=== PATIENT | male | born 1985 | race Caucasian/White ===

== ENCOUNTER → 2019-05-30 10:31 | Outpatient (CLI) | payer OTHER, SELFPAY ==
[2019-05-30 12:38] LABS: Cholesterol 239 mg/dL (200); High Density Lipoprotein 47 mg/dL; Triglycerides 94 mg/dL; Very Low Density Lipoprotein 19 mg/dL (5-40)
[2019-06-02 08:08] LABS: Testosterone, Free 12.46 ng/dL (5.00-21.00)
[2019-06-02 12:48] LABS: Testosterone, % Free 3.59 % (1.50-4.20); Testosterone, Total 347 ng/dL (264-916)
== END ==
LOC: LAB 10:36
PROVIDERS: Family Provider Family Medicine; PCP Family Medicine
DX: N52.9 Male erectile dysfunction, unspecified (principal)
CPT/HCPCS: 36415; 80061; 84402; 84403

== ENCOUNTER 2025-02-16 23:10 | Emergency (ER) | payer BC, SELFPAY ==
[2025-02-16 23:10] VITALS: BP 138/87; PULSE 82; RESP 16; TEMP 36.6; O2SAT 98; BMI 32.6
--- NOTE | 2025-02-17 00:28 | EX.ED.DYSGE1 ---
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 He reports associated occasional abdominal discomfort and subjective loss of muscle mass despite using a mass-alfredo supplement. No current gastrointestinal bleeding, persistent diarrhea, nausea, vomiting, or respiratory complaints beyond exertional dyspnea at work. He is concerned about the etiology of his night sweats and weight loss and seeks evaluation tonight rather than waiting until morning. - Reports night sweats for approximately one month. - Has noticed weight loss despite normal eating habits; previously weighed 246 lbs at last PCP visit, now weighs 234.4 lbs; attributes some weight maintenance to taking a mass alfredo with creatine. - Experiences abdominal discomfort at times, not present now. - Denies nausea, emesis, diarrhea, hematochezia, or melena. - Reports dyspnea at work, attributing it to the physical demands of his job. 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 - Urination is normal, but notes cloudy, yellow urine that is sometimes foamy. - Denies any current medical problems or medications. - Recently saw PCP for throat irritation and was prescribed medication for itching and allergies. - Has seen two ENTs for concerns about a white appearance on his tongue in the past; not present now. [facility] Medical History Leukemia Medical History no medical history Allergy/AdvReac Type Severity Reaction Status Date / Time ibuprofen Allergy Severe SEIZURE Verified 02/16/25 23:12 Family History no significant family his Surgical History no surgical history Social History Smoking Status: Never smoker ROS ROS ED ROS Narrative Constitutional: (+) night sweats, (+) weight loss Respiratory: (+) exertional dyspnea Gastrointestinal: (+) abdominal discomfort, (-) diarrhea, (-) vomiting, (-) hematochezia, (-) melena Genitourinary: (+) cloudy urine, (+) foamy urine Musculoskeletal: (+) muscle weakness Constitutional Constitutional ED: Denies chills or fever(s) Respiratory/Chest Respiratory/Chest: Reports cough; Denies sputum EXAM Physical Exam Narrative Exam Narrative: - General: Alert & oriented, no acute distress. - HEENT: Pupils equal, round. Pharynx clear, no pharyngeal erythema or exudates. - Neck: Supple. - Respiratory: Clear to auscultation bilaterally. No wheezing, rhonchi, or rales. - Cardiovascular: Regular rate and rhythm, no murmurs, rubs, or gallops. - Abdomen: Soft, non-tender, non-distended. - Neuro: No focal deficits, CN II-XII grossly intact. - Extremities: No clubbing, cyanosis, or edema. Const Vital Signs: 02/16/25 23:10 02/16/25 23:42 Temperature 97.9 F Temperature Source Oral Pulse Rate 82 Respiratory Rate 16 Respiratory Effort Normal Non-Labored Respiratory Pattern Normal Blood Pressure 138/87 H Blood Pressure Mean 104 Pulse Ox 98 Oxygen Delivery Method Room Air MDM MDM MDM Narrative Medical decision making narrative: Screening test on this patient are fairly unremarkable; the only abnormality is his globulin level is low, which is of undetermined significance. He does have a slight amount of proteinuria, however if that was causing this I would expect his albumin levels to be low and they are not. Therefore I think this is less likely to be renal disease. His blood counts are normal including his white blood count, he has a predilection for monocytes and eosinophils of undetermined significance at this time but there are no immature cells seen on the CBC at this time. Chest x-ray 2 views of my interpretation shows no pneumonia. He has not traveled out of the area or the country recently or been exposed to anyone with tuberculosis that he knows of. His cough is nonproductive and there is no sputum to collect to test for this, and his chest x-ray shows no suspicion or evidence of tuberculosis. Although I do not have an obvious explanation for any of his symptoms, he states that his weight loss was about 8 pounds in the last month, and he states that he noticed 4 pounds in 24 hours which I reassured him is likely to be water if it is real in the first place. It is unknown if SPEP is indicated for this issue, but I think reasonable to have him follow-up with hematology/oncology for further evaluation of these labs and symptoms. Lab Data Attestation: I reviewed the patient's lab results. Labs: Laboratory Results - last 24 hr 02/17/25 02/17/25 00:15 00:30 WBC 7.6 RBC 4.48 L Hgb 13.6 Hct 39.6 L MCV 88.4 MCH 30.4 MCHC 34.3 RDW Std Deviation 38.3 RDW Coeff of Jose 11.9 Plt Count 227 MPV 11.5 Immature Gran % (Auto) 0.300 Neut % (Auto) 48.7 Lymph % (Auto) 34.2 Gilliam % (Auto) 10.6 H Eos % (Auto) 5.4 H Baso % (Auto) 0.8 Absolute Neuts (auto) 3.7 Absolute Lymphs (auto) 2.58 Nucleated RBC % 0 Sodium 138 Potassium 3.6 Chloride 103 Carbon Dioxide 24.6 Anion Gap 11 BUN 15 Creatinine 1.05 Estim Creat Clear Calc 118.34 Est GFR (MDRD) Non-Af 93 BUN/Creatinine Ratio 14.5 Glucose 106 H Calcium 9.3 Total Bilirubin 0.32 AST 17 ALT 11 Alkaline Phosphatase 55 Total Protein 6.3 Albumin 4.5 Globulin 1.8 L Albumin/Globulin Ratio 2.5 H Urine Color Yellow Urine Clarity Clear Urine pH 6.0 Ur Specific [place] 1.020 Urine Protein 15 H Urine Glucose (UA) Normal Urine Ketones Negative Urine Occult Blood Negative Urine Nitrite Negative Urine Bilirubin Negative Urine Urobilinogen Normal Ur Leukocyte Esterase Negative Urine RBC 0 SEEN Urine WBC 0 SEEN Ur Squamous Epith Cells 0 SEEN Urine Bacteria 0 SEEN Urine Mucus 0 SEEN Radiography Diagnostic Testing: Clinical Impression(s) from Imaging Studies Chest X-Ray 02/17/25 00:40 IMPRESSION: Mild bilateral peribronchial interstitial thickening suggestive of bronchitis. Reading Location: [place] [id number] Discharge Plan Triage Chief Complaint: General Illness ED Provider: Ed Mary Dx/Rx/DC Orders Clinical Impression: Hypoglobulinemia, Night sweats, Unintentional weight loss, Nonproductive cough Instructions: Protein Electrophoresis (Blood) Other Ambulatory Orders: Fast Pass: Oncology Referral [facility] (Routine) Facility: [facility] - Location: [facility] Ordered By: Dr. Ed Mary Primary Care Provider: Rebel Jenkins Referrals: Fidel Ruiz MD [Non-Staff, Family Practice] - As soon as possible Venecia Lucas MD [Med Staff - Active Staff, Oncology] - As soon as possible Print Language: Maldivian Disposition Disposition: Home, Self Care
[2025-02-17 00:37] LABS: Mucous, Urine 0 SEEN /hpf (<or=2+); Red Blood Cells-Urine 0 SEEN /hpf (0-5); Squamous Epithelial Cells - UA 0 SEEN /hpf (0-5)
[2025-02-17 00:38] LABS: Color, Urine Yellow (Yellow); Glucose, Dipstick Normal (Normal); Ketone-Dipstick Negative (Negative); Leukocyte Esterase-Dipstick Negative /ul (Negative); Nitrite-Dipstick Negative (Negative); Occult Blood-Urine Negative /ul (Negative); Protein-Dipstick 15 mg/dl (Negative); Specific Gravity, Urine 1.020 (1.002-1.030); Urine Bilirubin Dipstick Negative (Negative)
[2025-02-17 00:39] LABS: Hematocrit 39.6 % (40-54); Hemoglobin 13.6 g/dL (13.0-16.5); Immature Granulocytes Count 0.020 X10^3/uL (0.0-0.0); Mean Corp Hgb Conc 34.3 g/dL (32-36); Mean Corpuscular Volume 88.4 fL (80-94); Mean Platelet Vol. 11.5 fl (6.2-12.0); NRBC Flagged by Analyzer 0 % (0-5); Platelet Count 227 K/mm3 (150-450); RBC Distribution Width CV 11.9 % (11.6-14.6); RBC Distribution Width SD 38.3 fl (35.1-43.9); Red Blood Count 4.48 M/mm3 (4.6-6.2); White Blood Count 7.6 K/mm3 (4.4-11.0)
--- NOTE | 2025-02-17 00:40 | RAD_ITS ---
PROCEDURE: CHEST PA AND LATERAL 02/17/2025 REASON FOR EXAM: COUGH, WEIGHT LOSS TECHNIQUE: Procedure Code: RADCXR Modality: DX Procedure: CHEST PA AND LATERAL COMPARISON: None. FINDINGS: Mild bilateral peribronchial interstitial thickening suggestive of bronchitis. There is no demonstrated pleural abnormality. Normal heart and pericardium. Normal mediastinum and vy. Normal visualized pulmonary arteries. Normal visualized aortic arch and descending thoracic aorta. Normal visualized thoracic spine. Normal visualized ribs, clavicles, and shoulders. There is no demonstrated abnormality of the visualized soft tissue structures of the upper abdomen. RAD/Chest PA and Lateral IMPRESSION: Mild bilateral peribronchial interstitial thickening suggestive of bronchitis. [facility]
--- OUTSIDE RECORDS SUMMARY | 2025-02-17 01:06 | XMS RPT_ITS | CCD ---
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 Name Role Phone Derick Eagle Unavailable Unavailable Unavailable Emmy Gregorio Attending Unavail able Fidel Ruiz Referring Unavailable Fidel Ruiz Primary Care Unavailable Generic Provider , No Assigned Pcp Primary Car e Provider Unavailable Rebel Damian PA-C Primary Care Provider Generic Provider , No Assigned Pcp Primary Car e Provider Unavailable REBEL DAMIAN Attending Unavailable REBEL DAMIAN Primary Care Unavailable DENNIS CONTE Attending Unavailable GENERIC PROVIDER, NO ASSIGNED PCP Primary Care Unavailable GENERIC PROVIDER, NO ASSIGNED PCP Primary Care Unavailable DENNIS CONTE Attending Unavailable Allergies Allergy Classification Reported Allergen(s) Allergy Type Date of Onset Reaction(s) Facility (9 sources) Ibuprofen; Translations: [ibuprofen] Drug Allergy 5 [facility], [facility] Medications Current Medications Medication Drug Class(es) Dates Sig (Normalized) Sig (Original) cetirizine hydrochloride 10 mg oral tablet (2 sources) Histamine-1 Receptor Antagonist Start: 01-06-2025 take 1 tablet by mouth once daily cetirizine (ZyrTEC) 10 mg tablet Indications: Post-nasal drainage Take 1 tablet (10 mg) by mouth once daily. 30 tablet 01/06/2025 Active fluconazole 150 mg oral tablet (1 source) Azole Antifungal Start: 01-08-2025 fluconazole (Diflucan) 150 mg tablet Indications: Thrush Take 1 tablet now, and take 1 tablet in 7 days. 2 tablet 01/08/2025 Active hydrOXYzine hydrochloride 25 mg oral tablet (3 sources) Antihistamine Start: 12-25-2024 take 1 tablet by mouth four times daily as needed hydrOXYzine HCL (Atarax) 25 mg tablet Indications: Situational anxiety Take 1 tablet (25 mg) by mouth 4 times a day as needed for itching. 20 tablet 12/25/2024 Active Completed/Discontinued Medications Medication Drug Class(es) Dates Sig (Normalized) Sig (Original) amoxicillin 875 mg / clavulanate 125 mg oral tablet (3 sources) Penicillin-class Antibacterial Start: 05-14-2021 take 1 tablet by mouth every twelve hours Amoxicillin-Pot Clavulanate 875-125 MG Oral Tablet TAKE 1 TABLET EVERY 12 HOURS UNTIL GONE. Quantity: 14 Refills: 0 Ordered: 14-May-2021 Shagufta WOO-CDerick Start : 14-May-2021 Active azithromycin 250 mg oral tablet (3 sources) Macrolide Antimicrobial Start: 12-18-2024 End: 12-25-2024 azithromycin (Zithromax) 250 mg tablet 12/18/2024 12/25/2024 Discontinued (Therapy completed) Start: 04-29-2021 End: 05-14-2021 Azithromycin 250 MG Oral Tab let TAKE DIRECTED PER PACKAGE INSTRUCTIONS. Quantity: 6 Refills: 0 Ordered: 29-Apr-2021 Shagufta WOO-CDerick Start : 29-Apr-2021 End : 14-May-2021 Complete codeine phosphate 2 mg/ml / phenylephrine hydrochloride 1 mg/ml / promethazine hydrochloride 1.25 mg/ml oral solution (2 sources) Opioid Agonist, Phenothiazine, alpha-1 Adrenergic Agonist Start: 04-29-2021 End: 05-14-2021 take 5-10 mL by mouth every four to six hours as needed for cough Uvmojrowspen-Uzwxebilt-Zqsiubh 6.25-5-10 MG/5ML Oral Syrup 5-10 mL every 4-6 hrs prn cough Quantity: 200 Refills: 0 Ordered: 29-Apr-2021 Shagufta WOO-CDerick Start : 29-Apr-2021 End : 14-May-2021 Complete J20.9 methylPREDNISolone 4 MG Oral Tablet Therapy Pack (2 sources) Start: 04-29-2021 End: 05-14-2021 methylPREDNISolone 4 MG Oral Tablet Therapy Pack as directed on package Quantity: 1 Refills: 0 Ordered: 29-Apr-2021 Derick Eagle PA-C Start : 29-Apr-2021 End : 14-May-2021 Complete Start: 04-29-2021 methylPREDNISo lone 4 MG Oral Tablet Therapy Pack as directed on package Quantity: 1 Refills: 0 Ordered: 29-Apr-2021 Derick Eagle PA-C Start : 29-Apr-2021 Active nystatin 214505 unt/ml oral suspension (2 sources) Polyene Antifungal Start: 12-25-2024 End: 01-06-2025 take 4 mL by mouth four times daily nystatin (Mycostatin) 100,000 unit/mL suspension Indications: Thrush, oral Swish and swallow 4 mL (400,000 Units) 4 times a day for 7 days. 112 mL 12/25/2024 01/06/2025 predniSONE 10 mg oral tablet (3 sources) Start: 05-14-2021 predniSONE 10 MG Oral Tablet TAKE 3 TABLETS DAILY FOR 2 DAYS, 2 TABLETS DAILY FOR 2 DAYS AND 1 TABLET DAILY FOR 2 DAYS, THEN STOP. Quantity: 12 Refills: 0 Ordered: 14-May-2021 Derick Eagle PA-C Start : 14-May-2021 Active sulfamethoxazole 800 mg / trimethoprim 160 mg oral tablet (3 sources) Dihydrofolate Reductase Inhibitor Antibacterial, Sulfonamide Antimicrobial Start: 05-14-2021 take 1 tablet by mouth every twelve hours Sulfamethoxazole -Trimethoprim 800-160 MG Oral Tablet TAKE 1 TABLET Every twelve hours Quantity: 14 Refills: 0 Ordered: 14-May-2021 Derick Eagle PA-C Start : 14-May-2021 Active tadalafil 20 mg oral tablet (1 source) Phosphodiesterase 5 Inhibitor Start: 04-08-2020 End: 04-29-2021 Tadalafil 20 MG Oral Tablet Quantity: 0 Refills: 0 Ordered: 08-Apr-2020 DO Start : 08-Apr-2020 End : 29-Apr-2021 Complete ubidecarenone 100 mg oral capsule (1 source) End: 04-29-2021 CoQ-10 100 MG Oral Capsule Quantity: 0 Refills: 0 Ordered: 29-Apr-2021 DO End : 29-Apr-2021 Complete Problems Active Problems Problem Classification Problem Date Documented Da te Episodic/Chronic Acute bronchitis (4 sources) Acute bronchitis; Translations: [Acute bronchitis] Episodic Anxiety disorders (3 sources) Anxiety; Translations: [Other specified anxiety disorders] Onset: 5 12-25-2024 Chronic Diseases of mouth; excluding dental (3 sources) Coating of mucous membrane of tongue; Translations: [Hypertrophy of tongue papillae] Onset: 5 01-06-2025 Episodic 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; 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] Chronic Leukemias (4 sources) History of leukemia; Translations: [Personal history of leukemia, unspecified] Episodic Mycoses (6 sources) Candidiasis of mouth; Translations: [Candidal stomatitis] Onset: 5 12-25-2024 Episodic Other lower respiratory disease (1 source) Hemoptysis; Translations: [Hemoptysis, unspecified] Episodic Other upper respiratory infections (4 sources) Upper respiratory infection; Translations: [Acute upper respiratory infections of unspecified site] Onset: 5 01-06-2025 Episodic Phlebitis; thrombophlebitis and thromboembolism (3 sources) Thrombophlebitis of upper extremities; Translations: [Phlebitis and thrombophlebitis of upper extremities, unspecified] Episodic Residual codes; unclassified (1 source) Unprotected sexual intercourse; Translations: [High risk heterosexual behavior] 01-08-2025 Episodic Residual codes; unclassified (2 sources) High risk heterosexual behavior; Translations: [High risk heterosexual behavior] Onset: Episodic Viral infection (3 sources) COVID-19; Translations: [Pneumonia due to COVID-19 virus] Episodic Past or Other Problems Problem Classification Problem Date Documented Da te Episodic/Chronic Other lower respiratory disease (3 sources) H/O: respiratory disease; Translations: [Personal history of other infectious and parasitic diseases] Resolved: 05-14-2021 Episodic Unclassified (1 source) Onset: 01-08-2025 01-08-2025 Results Test Name Value Interpretation Reference Range Facility CBC (INCLUDES DIFF/PLT)on Basophils (Bld) [#/Vol] 0.061 10*3/uL Normal 0-200 [facility] Comment on above: Performed By: #### 9 2503, 4381, 22618 #### [facility] [address], [address] [place] [address] Canopy Inspector: Akin Chinchilla MD Basophils/100 WBC (Bld) 1.1 % Normal [facility] Comment on above: Performed By: #### 9 882, 26, 04611 #### [facility] of [address], [address] [place] [address] Canopy Inspector: Akin Chinchilla MD Eosinophils (Bld) [#/Vol] 0.198 10*3/uL Normal 15-500 [facility] Comment on above: Performed By: #### 9 2664, 53, 78554 #### [facility] of [address], [address] [place] [address] Canopy Inspector: Akin Chinchilla MD Eosinophils/100 WBC (Bld) 3.6 % Normal [facility] Comment on above: Performed By: #### 9 266, 67, 55730 #### [facility] of [place] [address] Canopy Inspector: Akin Chinchilla MD Erythrocyte distribution width (RBC) [Ratio] 12.0 % Normal 11.0-15.0 [facility] Comment on above: Performed By: #### 9 488, 73, 44456 #### [facility] of [place] [address] Canopy Inspector: Akin Chinchilla MD Hematocrit (Bld) [Volume fraction] 45.4 % Normal 38.5-50.0 [facility] Comment on above: Performed By: #### 9 266, 84, 16046 #### [facility] of [place] [address] Canopy Inspector: Akin Chinchilla MD Hemoglobin (Bld) [Mass/Vol] 15.2 g/dL Normal 13.2-17.1 [facility] Comment on above: Performed By: #### 9 266, 72, 82455 #### [facility] of [address], [address] [place] [address] Canopy Inspector: Akin Chinchilla MD Lymphocytes (Bld) [#/Vol] 1.348 10*3/uL Normal 850-3900 [facility] Comment on above: Performed By: #### 9 290, 20, 12934 #### [facility] [place] [address] Canopy Inspector: Akin Chinchilla MD Lymphocytes/100 WBC (Bld) 24.5 % Normal [facility] Comment on above: Performed By: #### 9 480, 35, 59109 #### [facility] of [place] [address] Canopy Inspector: Akin Chinchilla MD MCH (RBC) [Entitic mass] 30.9 pg Normal 27.0-33.0 [facility] Comment on above: Performed By: #### 9 685, 42, 49981 #### [facility] [place] [address] Canopy Inspector: Akin Chinchilla MD MCHC (RBC) [Mass/Vol] 33.5 g/dL Normal 32.0-36.0 [facility] Comment on above: Result Comment: For adults, a slight decrease in the calculated MCHC value (in the range of 30 to 32 g/dL) is most likely not clinically significant; however, it should be interpreted with caution in correlation with other red cell parameters and the patient's clinical condition. Performed By: #### 9 252, 13, 25998 #### [facility] [place] [address] Canopy Inspector: Akin Chinchilla MD MCV (RBC) [Entitic vol] 92.3 fL Normal 80.0-100.0 [facility] Comment on above: Performed By: #### 9 682, 92, 35660 #### [facility] [place] [address] Canopy Inspector: Akin Chinchilla MD Monocytes (Bld) [#/Vol] 0.303 10*3/uL Normal 200-950 [facility] Comment on above: Performed By: #### 9 323, 82, 71771 #### [facility] of [address], [address] [place] [address] Canopy Inspector: Akin Chinchilla MD Monocytes/100 WBC (Bld) 5.5 % Normal [facility] Comment on above: Performed By: #### 9 266, 63, 34221 #### [facility] of [address], [address] [place] [address] Canopy Inspector: Akin Chinchilla MD Neutrophils (Bld) [#/Vol] 3.592 10*3/uL Normal 9360-8955 [facility] Comment on above: Performed By: #### 9 266, 6398, 63450 #### [facility] of [place] [address] Canopy Inspector: Akin Chinchilla MD Neutrophils/100 WBC (Bld) 65.3 % Normal [facility] Comment on above: Performed By: #### 9 266, 6398, 09884 #### [facility] of [address], [address] [place] [address] Canopy Inspector: Akin Chinchilla MD Platelet mean volume (Bld) [Entitic vol] 11.8 fL Normal 7.5-12.5 [facility] Comment on above: Performed By: #### 9 266, 35, 03189 #### [facility] of [place] [address] Canopy Inspector: Akin Chinchilla MD Platelets (Bld) [#/Vol] 250 10*3/uL Normal 140-400 [facility] Comment on above: Performed By: #### 9 266, 6398, 48654 #### [facility] of [place] [address] Canopy Inspector: Akin Chinchilla MD RBC (Bld) [#/Vol] 4.92 10*6/uL Normal 4.20-5.80 [facility] Comment on above: Performed By: #### 9 266, 77, 65309 #### [facility] of [address], [address] [place] [address] Canopy Inspector: Akin Chinchilla MD WBC (Bld) [#/Vol] 5.5 10*3/uL Normal 3.8-10.8 [facility] Comment on above: Performed By: #### 9 2665, 6399, 28513 #### [facility] of [facility] [address], [address] [place] [address] Canopy Inspector: Akin Chinchilla MD CBC W Auto Differential pane l (Bld)on 01-09-2025 Basophils (Bld) [#/Vol] 61 10*3/uL [facility] Basophils/100 WBC (Bld) 1.1 % [facility] Eosinophils (Bld) [#/Vol] 198 10*3/uL [facility] Eosinophils/100 WBC (Bld) 3.6 % [facility] Erythrocyte distribution width (RBC) [Ratio] 12.0 % 11.0 - 15.0 % [facility] Hematocrit (Bld) [Volume fraction] 45.4 % 38.5 - 50.0 % [facility] Hemoglobin (Bld) [Mass/Vol] 15.2 g/dL 13.2 - 17.1 g/dL [facility] Lymphocytes (Bld) [#/Vol] 1348 10*3/uL [facility] Lymphocytes/100 WBC (Bld) 24.5 % [facility] MCH (RBC) [Entitic mass] 30.9 pg 27.0 - 33.0 pg [facility] MCHC (RBC) [Mass/Vol] 33.5 g/dL 32.0 - 36.0 g/dL [facility] Comment on above: For adults, a slight decrease in the calculated MCHC value (in the range of 30 to 32 g/dL) is most likely not clinically significant; however, it should be interpreted with caution in correlation with other red cell parameters and the patient's clinical condition. MCV (RBC) [Entitic vol] 92.3 fL 80.0 - 100.0 fL [facility] Monocytes (Bld) [#/Vol] 303 10*3/uL [facility] Monocytes/100 WBC (Bld) 5.5 % [facility] Neutrophils (Bld) [#/Vol] 3592 10*3/uL [facility] Neutrophils/100 WBC (Bld) 65.3 % [facility] Platelet mean volume (Bld) [Entitic vol] 11.8 fL 7.5 - 12.5 fL [facility] Platelets (Bld) [#/Vol] 250 10*3/uL [facility] RBC (Bld) [#/Vol] 4.92 10*6/uL [facility] WBC (Bld) [#/Vol] 5.5 10*3/uL [facility] COMPREHENSIVE METABOLIC PANE L W/ANION GAPon 01-09-2025 Albumin [Mass/Vol] 4.7 g/dL Normal 3.6-5.1 [facility] Comment on above: Performed By: #### 9 2255, 3184, 96292 #### [facility] [place] [address] Canopy Inspector: Akin Chinchilla MD ALP [Catalytic activity/Vol] 56 U/L Normal 36-130 [facility] Comment on above: Performed By: #### 9 2665, 6323, 40817 #### [facility] [place] [address] Canopy Inspector: Akin Chinchilla MD ALT [Catalytic activity/Vol] 12 U/L Normal 9-46 [facility] Comment on above: Performed By: #### 9 2665, 5809, 99916 #### [facility] [place] [address] Canopy Inspector: Akin Chinchilla MD AST [Catalytic activity/Vol] 14 U/L Normal 10-40 [facility] Comment on above: Performed By: #### 9 2665, 3334, 40710 #### [facility] [place] [address] Canopy Inspector: Akin Chinchilla MD Bilirubin [Mass/Vol] 0.5 mg/dL Normal 0.2-1.2 [facility] Comment on above: Performed By: #### 9 2665, 50, 20804 #### [facility] of [place] [address] Canopy Inspector: Akin Chinchilla MD Calcium [Mass/Vol] 9.5 mg/dL Normal 8.6-10.3 [facility] Comment on above: Performed By: #### 9 266, , 01443 #### [facility] of [place] [address] Canopy Inspector: Akin Chinchilla MD Chloride [Moles/Vol] 105 mmol/L Normal 98-110 [facility] Comment on above: Performed By: #### 9 266, 73, 81425 #### [facility] of [place] [address] Canopy Inspector: Akin Chinchilla MD CO2 [Moles/Vol] 27 mmol/L Normal 20-32 [facility] Comment on above: Performed By: #### 9 266, 10, 11443 #### [facility] of [place] [address] Canopy Inspector: Akin Chinchilla MD Creatinine [Mass/Vol] 1.12 mg/dL Normal 0.60-1.26 [facility] Comment on above: Performed By: #### 9 2665, 89, 42822 #### [facility] of [place] [address] Canopy Inspector: Akin Chinchilla MD ELECTROLYTE BALANCE 10 mmol/L (calc) Normal 7-17 [facility] Comment on above: Performed By: #### 9 2665, 2399, 08252 #### [facility] of [place] [address] Canopy Inspector: Akin Chinchilla MD GFR/1.73 sq M.predicted among non-blacks MDRD (S/P/Bld) [Vol rate/Area] 86 mL/min/{1.73_m2} Normal > OR = 60 [facility] Comment on above: Performed By: #### 9 2665, 6399, 02994 #### [facility] of [address], [address] [place] [address] Canopy Inspector: Akin Chinchilla MD Glucose [Mass/Vol] 91 mg/dL Normal 65-139 [facility] Comment on above: Result Comment: Non-fasting reference interval Performed By: #### 9 2665, 6399, 10884 #### [facility] of [address], [address] [place] [address] Canopy Inspector: Akin Chinchilla MD Potassium [Moles/Vol] 4.2 mmol/L Normal 3.5-5.3 [facility] Comment on above: Performed By: #### 9 2665, 2599, 76854 #### [facility] of [address], [address] [place] [address] Canopy Inspector: Akin Chinchilla MD Protein [Mass/Vol] 6.6 g/dL Normal 6.1-8.1 [facility] Comment on above: Performed By: #### 9 2665, 5899, 38794 #### [facility] of [address], [address] [place] [address] Canopy Inspector: Akin Chinchilla MD Sodium [Moles/Vol] 142 mmol/L Normal 135-146 [facility] Comment on above: Performed By: #### 9 2665, 6399, 32746 #### [facility] of [address], [address] [place] [address] Canopy Inspector: Akin Chinchilla MD Urea nitrogen [Mass/Vol] 11 mg/dL Normal 7-25 [facility] Comment on above: Performed By: #### 9 2665, 6399, 96795 #### [facility] of [place] [address] Canopy Inspector: Akin Chinchilla MD Comprehensive metabolic 2000 panelon 01-09-2025 Albumin [Mass/Vol] 4.7 g/dL 3.6 - 5.1 g/dL [facility] ALP [Catalytic activity/Vol] 56 U/L 36 - 130 U/L [facility] ALT [Catalytic activity/Vol] 12 U/L 9 - 46 U/L [facility] Anion gap [Moles/Vol] 10 mmol/L [facility] AST [Catalytic activity/Vol] 14 U/L 10 - 40 U/L [facility] Bilirubin [Mass/Vol] 0.5 mg/dL 0.2 - 1.2 mg/dL [facility] Calcium [Mass/Vol] 9.5 mg/dL 8.6 - 10. 3 mg/dL [facility] Chloride [Moles/Vol] 105 mmol/L 98 - 110 mmol/L [facility] CO2 [Moles/Vol] 27 mmol/L 20 - 32 mmol/L [facility] Creatinine [Mass/Vol] 1.12 mg/dL 0.60 - 1.26 mg/dL [facility] GFR/1.73 sq M.predicted among non-blacks MDRD (S/P/Bld) [Vol rate/Area] 86 mL/min/{1.73_m2} > OR = 60 mL/min/1.73 m2 [facility] Glucose [Mass/Vol] 91 mg/dL 65 - 139 mg/dL [facility] Comment on above: Non-fasting reference interval Potassium [Moles/Vol] 4.2 mmol/L 3.5 - 5.3 mmol/L [facility] Protein [Mass/Vol] 6.6 g/dL 6.1 - 8.1 g/dL [facility] Sodium [Moles/Vol] 142 mmol/L 135 - 146 mmol/L [facility] Urea nitrogen [Mass/Vol] 11 mg/dL 7 - 25 mg/dL [facility] HIV 1/2 ANTIGEN/ANTIBODY,FOU RTH GENERATION W/RFLon 01-09-2025 HIV AG/AB, 4TH GEN Non-Reactive Normal NON-REACT IV E [facility] Comment on above: Order Comment: FASTI NG:NO FASTING: NO Performed By: #### 9 9262, 6873, 62282 #### [facility] [address] [facility], [address] [place] [address] Canopy Inspector: Akin Chinchilla MD HIV FINAL INTERPRETATION Normal [facility] Comment on above: Order Comment: FASTI NG:NO FASTING: NO Result Comment: HIV Negative HIV-1 antigen and HIV-1/HIV-2 antibodies were not detected. There is no laboratory evidence of HIV infection. Performed By: #### 9 2665, 6399, 16257 #### [facility] [address], [address] [place] [address] Canopy Inspector: Akin Chinchilla MD HIV 1/2 Antigen/Antibody Scr een with Reflex to Confirmationon 01-09-2025 HIV 1+2 Ab+HIV1 p24 Ag IA Ql [facility] Comment on above: HIV Negative HIV-1 antigen and HIV-1/HIV-2 antibodies were not detected. There is no laboratory evidence of HIV infection. 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 Office Visit (Internal Medic ine)on 06-03-2021 Follow-up visit Diagnoses/Problems Assessed Pneumonia due to COVID-19 virus (480.8,079.89) (U07.1,J12.82) Hemoptysis (786.30) (R04.2) Orders Hemoptysis Pulmonary Medicine Referral Evaluation and Treatment Evaluate AND Treat Status: Complete Done: 03Jun2021 Ordered;For: Hemoptysis; Ordered By: Derick Eagle Performed: Due: 01Sep2021; Last Updated By: Effie Cotto; 06/03/2021 12:04:06 PM Patient Discussion/Summary Exam and presentation are fairly unremarkable. Considering new onset of hemoptysis, pulmonary medicine referral was arranged. Patient will attempt to return to work in 2 weeks. FMLA was plated in April but another work note was provided today. Will have the patient follow-up as needed as pulmonology will see this through. Chief Complaint EST PT HERE FOR BLOOD IN SILIVA X 3 DAYS. PT STATES THIS HAPPENS WHEN HE COUGHS/CLEARS HIS THROAT. PT HAS PICTURES TO SHARE ON HIS PHONE. History of Present IllnessPatient presents in follow-up of Covid pneumonia. Most recent chest x-ray obtained 26 May 2021 showed no improvement as compared to x-ray obtained 2 weeks prior. Patient reports no dyspnea however, is reporting new onset of hemoptysis. Patient states 3 days ago there was a large clump of bloody mucus which has since been followed by clear mucus with streaks of blood. Patient took pictures and brought these in. Patient denies any chest pain or shortness of breath. Since onset in early April, patient has been on Zithromax, prednisone, Augmentin, and prednisone again. Patient has stopped supplemental O2 and reports good endurance and decent conditioning considering 3-week duration so far. Patient is questioning about returning to work. Review of Systems Constitutional: no fever. Cardiovascular: as noted in HPI. Respiratory: as noted in HPI. 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) Past Medical History Problems History of leukemia (V10.60) (Z85.6) History of upper respiratory infection (V12.09) (Z87.09) Resolved Date: 14 May 2021 Surgical History Problems No history of surgery Family History Father Family history of hypertension (V17.49) (Z82.49) Family history of type 2 diabetes mellitus (V18.0) (Z83.3) Paternal Grandmother Family history of dementia (V17.2) (Z81.8) Social History Problems Drinks caffeinated tea Never a smoker No alcohol use No illicit drug use Patient ingests cola containing caffeine (V49.89) (Z78.9) Use of energy drinks (V49.89) (Z78.9) Allergies Medication ibuprofen Seizures;; Recorded By: Samy Boss; 04/08/2020 8:35:20 AM Current Meds Medication NameInstruction Amoxicillin-Pot Clavulanate 875-125 MG Oral TabletTAKE 1 TABLET EVERY 12 HOURS UNTIL GONE. predniSONE 10 MG Oral TabletTAKE 3 TABLETS DAILY FOR 2 DAYS, 2 TABLETS DAILY FOR 2 DAYS AND 1 TABLET DAILY FOR 2 DAYS, THEN STOP. Sulfamethoxazole-Trimethop rim 800-160 MG Oral TabletTAKE 1 TABLET Every twelve hours Vitals Vital Signs Recorded: 03Jun2021 11:22AM Ahsexdynerw72.6 F Heart Rate89 Budktvbx150 Gnxdizzbd81 Height6 ft Morplb702 lb BMI Krdbovenwp77.6 kg/m2 BSA Calculated2.27 Tobacco Useb) No O2 Xfchnazepr10 Physical Exam Constitutional General appearance: Alert and in no acute distress. Eyes Inspection of eyes: Sclera and conjunctiva were normal. Pupil exam: Pupils were equal in size. Extraocular movements were intact. Ears, Nose, Mouth, and Throat Ears: Auricles: Normal. Pulmonary Respiratory assessment: No respiratory distress, normal respiratory rhythm and effort. Auscultation of Lungs: Clear bilateral breath sounds. Cardiovascular Auscultation of heart: Apical pulse normal, heart rate and rhythm normal, normal S1 and S2, no murmurs and no pericardial rub. Skin Skin inspection: Normal skin color and pigmentation, normal skin turgor and no visible rash. Neurologic Cranial nerves: Nerves 2-12 were intact, no focal neuro defects. Signatures Electronically signed by : Derick Eagle PA-C; Jun 03 2021 12:34PM EST (Author) Normal [employer] Tobacco Screening.on 022 Tobacco use status CPHS b) No [facility] Work Phone: CHEST 2 VIEW PA AND LATon CHEST 2 VIEW PA AND LAT Patient Name: WERNER YEPEZ STUDY: TH CHEST 2 VIEW PA AND LAT INDICATION: covid/bacterial pneumonia J20.9: Bronchitis, acute U07.1: Pneumonia due to COVID-19 virus I80.8: Thrombophlebitis arm. COMPARISON: May 05, 2021 ACCESSION NUMBER(S): [id number] ORDERING CLINICIAN: DERICK EAGLE FINDINGS: Multifocal patchy scattered opacities in the periphery of both lungs favoring multifocal pneumonia. No large effusion or pneumothorax. IMPRESSION: Findings of multifocal pneumonia, similar to prior exam. 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.8) Bronchitis, acute (466.0) (J20.9) Orders Bronchitis, acute, Pneumonia due to COVID-19 virus, Thrombophlebitis arm Start: Amoxicillin-Pot Clavulanate 875-125 MG Oral Tablet; TAKE 1 TABLET EVERY 12 HOURS UNTIL GONE Rx By: Derick Eagle; Dispense: 7 Days ; #:14 Tablet; Refill: 0;For: Bronchitis, acute, Pneumonia due to COVID-19 virus, Thrombophlebitis arm; MINO = N; Sent To: [id number]; Last Updated By: System, [employer] Turb[employer]er; 05/14/2021 11:00:07 AM Xray Chest 2 View PA + Lateral; Status:Hold For - Scheduling; Requested for:[id number]; Perform:[facility]; Due:19Aug2021;Ordered; For:Bronchitis, acute, Pneumonia due to COVID-19 virus, Thrombophlebitis arm; Ordered By:Derick Eagle; Radiologist to Determine Optimal Study : Y What are the patient's signs and symptoms? : covid/bacterial pneumonia Start: predniSONE 10 MG Oral Tablet; TAKE 3 TABLETS DAILY FOR 2 DAYS, 2 TABLETS DAILY FOR 2 DAYS AND 1 TABLET DAILY FOR 2 DAYS, THEN STOP Rx By: Derick Eagle; Dispense: 0 Days ; #:12 Tablet; Refill: 0;For: Bronchitis, acute, Pneumonia due to COVID-19 virus, Thrombophlebitis arm; MINO = N; Sent To: [id number]; Last Updated By: [employer]ing[employer]er; 05/14/2021 11:00:15 AM Start: Sulfamethoxazole-Trimethop rim 800-160 MG Oral Tablet; TAKE 1 TABLET Every twelve hours Rx By: Derick Eagle; Dispense: 7 Days ; #:14 Tablet; Refill: 0;For: Bronchitis, acute, Pneumonia due to COVID-19 virus, Thrombophlebitis arm; MINO = N; [facility]: [id number]; Last Updated By: [employer]; 05/14/2021 11:00:08 AM Patient Discussion/Summary Covid pneumonia with persistent bronchitis: Medium prednisone taper, continue O2, weaning protocol reviewed. Surveillance chest x-ray in 2 weeks. Continue Symbicort as needed Thrombophlebitis right forearm: Recommend 325 aspirin 2-3 times per day. Added 7 days of Augmentin and Bactrim in the event that it is infectious which will also help cover for bacterial pneumonia resolution. Surveillance will continue without continued office visits. Patient remains self-pay so we will try to keep office visits to minimum. Follow-up as needed. Chief Complaint Patient here today for follow up hospital discharged on Wednesday with oxygen. Currently taking 1-2L. Patient states SpO2 ranging high 80s with exertion and at rest around 95%. Patient finished last dose of Methylprednisolone today. Patient states feeling better since discharge, energy AND appetite have increased. History of Present IllnessPatient presents in hospital follow-up. Patient was seen here and treated for upper respiratory infection suspected Covid initially on 29 April 2021. Patient was prescribed a Z-José, Medrol, and Bromfed. Patient continued to decline despite this and presented to the ER 05 May 2021. Patient was diagnosed with Covid pneumonia with possible bacterial superinfection and admitted for hypoxia and respiratory distress. Patient was admitted for 4 days and discharged 09 May 2021 after appropriate care. Patient was discharged on home O2 and a Medrol Dosepak. Patient presents today with significant improvement overall. Patient continues to use supplemental O2 at 2 L. Patient does report onset of mild erythema and induration at the IV site on the right forearm. Otherwise, patient continues to improve with stamina, appetite, and breathing. Review of Systems Constitutional: as noted in HPI. Cardiovascular: as noted in HPI. Respiratory: as noted in HPI. Active Problems Problems Bronchitis, acute (466.0) (J20.9) Curvature of the penis (752.69) (Q55.61) Past Medical History Problems History of leukemia (V10.60) (Z85.6) History of upper respiratory infection (V12.09) (Z87.09) Surgical History Problems No history of surgery Family History Father Family history of hypertension (V17.49) (Z82.49) Family history of type 2 diabetes mellitus (V18.0) (Z83.3) Paternal Grandmother Family history of dementia (V17.2) (Z81.8) Social History Problems Drinks caffeinated tea Never a smoker No alcohol use No illicit drug use Patient ingests cola containing caffeine (V49.89) (Z78.9) Use of energy drinks (V49.89) (Z78.9) Allergies Medication ibuprofen Seizures;; Recorded By: Samy Boss; 04/08/2020 8:35:20 AM Current Meds Medication NameInstruction No Reported Medications Vitals Vital Signs Recorded: [id number] 10:30AM Woopdgmbnrw52.4 F Heart Mibp388 Kxeyfggi200 Vqemenknx40 Height6 ft Goxljv132 lb 9.6 oz BMI Oxowxzohxp91.78 kg/m2 BSA Calculated2.22 Tobacco Useb) No Fall Screeninga) No falls within the last year O2 Thamipjupi77 Physical Exam Constitutional General appearance: Alert and in no acute distress. Eyes Pupil exam: Pupils were equal in size. Extraocular movements were intact. Ears, Nose, (more content not included)... Normal [employer] Tobacco Screening.on 021 Fall risk assessment a) No falls within the last year [facility] Work Phone: Tobacco use status CP b) No [facility] Work Phone: BASIC METABOLIC PANELon 12- 0-2020 Anion gap [Moles/Vol] 9 mmol/L Low 10 - 20 [facility] Comment on above: Performed By: #### B MP #### [address] [address] Calcium [Mass/Vol] 8.5 mg/dL Low 8.6 - 10.3 [facility] Comment on above: Performed By: #### B MP #### [address] [address] Chloride [Moles/Vol] 106 mmol/L Normal 98 - 107 [facility] Comment on above: Performed By: #### B MP #### [address] [address] Creatinine [Mass/Vol] 0.86 mg/dL Normal 0.50 - 1.30 [facility] Comment on above: Performed By: #### B MP #### [address] [address] GFR- AM. >60 Normal >60 [facility] Comment on above: Result Comment: CALC ULATIONS OF ESTIMATED GFR ARE PERFORMED USING THE MDRD STUDY EQUATION FOR THE IDMS-TRACEABLE CREATININE METHODS. CLIN CHEM 2007;53:766-72 Performed By: #### B MP #### [address] [address] GFR-NON AM. >60 Normal >60 [facility] Comment on above: Performed By: #### B MP #### [address] [address] Glucose [Mass/Vol] 115 mg/dL High 74 - 99 [facility] Comment on above: Performed By: #### B MP #### [address] [address] HCO3 (Bld) [Moles/Vol] 28 mmol/L Normal 21 - 32 [facility] Comment on above: Performed By: #### B MP #### [address] [address] Potassium [Moles/Vol] 4.9 mmol/L Normal 3.5 - 5.3 [facility] Comment on above: Performed By: #### B MP #### [address] [address] Sodium [Moles/Vol] 138 mmol/L Normal 136 - 145 [facility] Comment on above: Performed By: #### B MP #### [address] [address] Urea nitrogen [Mass/Vol] 21 mg/dL Normal 6 - 23 [facility] Comment on above: Performed By: #### B MP #### [address] [address] CBCon 05-09-2021 Erythrocyte distribution width (RBC) [Ratio] 12.5 % Normal 11.5 - 14.5 [facility] Comment on above: Performed By: #### B LDC #### [facility] [address] [place] [address] Hematocrit (Bld) [Volume fraction] 39.1 % Low 41.0 - 52.0 [facility] Comment on above: Performed By: #### B LDC #### [facility] [address] [place] [address] Hemoglobin (Bld) [Mass/Vol] 13.0 g/dL Low 13.5 - 17.5 [facility] Comment on above: Performed By: #### B LDC #### [facility] [address] [place] [address] MCHC (RBC) [Mass/Vol] 33.1 g/dL Normal 32.0 - 36.0 [facility] Comment on above: Performed By: #### B LDC #### [facility] [address] [place] [address] MCV (RBC) [Entitic vol] 91 fL Normal 80 - 100 [facility] Comment on above: Performed By: #### B LDC #### [facility] [address] [place] [address] Platelets (Bld) [#/Vol] 350 10*3/uL Normal 150 - 450 [facility] Comment on above: Performed By: #### B LDC #### [facility] [address] [place] [address] RBC 4.31 x10E12/L Low 4.50 - 5.90 [facility] Comment on above: Performed By: #### B LDC #### [facility] [address] [place] [address] WBC (Bld) [#/Vol] 14.8 10*3/uL High 4.4 - 11.3 [facility] Comment on above: Performed By: #### B LDC #### [facility] [address] [place] [address] Discharge Czcrlet4je 021 Discharge Profile2 Discharge Orders: Anticipated Discharge Date: Anticipated Discharge [id number] DNAR: Code Status at Discharge: Full Code Activity: activity as tolerated. Diet: Dietlow fat Provider FINAL REVIEW of Orders: Final Review: Final Review of Medication Reconciliation and Orders Completedby Physician Reviewing ProviderViola Quezada MD at 09-May-2021 14:40:13 Appointments: Follow-Up Appointment 01: Physician/Dept/Iwona Eagle Reason for ReferralHospital Follow-up Call to Schedule in2 weeks [id number] [place] [address] Phone [phone] CommentsOffice will call you Saturday 05/12 with appointment Date and Time Other Clinician Instructions: Other Instructions: Respiratory InstructionsOXYGEN 3 LITERS AT REST, 6 LITERS WITH ACTIVITY, [facility] ON TANK WHEN GETS HOME TO HAVE REST OF SUPPLIES DELIVERED. Electronic Signatures: Manda Solis (UNIT SECT) (Signed 09-May-2021 15:01) Authored: Discharge Orders, Appointments Felisa Khoury (GEREMIAS) (Signed 09-May-2021 15:23) Authored: Discharge Orders, Other Clinician Instructions Vioal Quezada) (Signed 09-May-2021 14:40) Authored: Discharge Orders, Provider FINAL REVIEW of Orders, Appointments, Gold Form - Equipment Service Engineer Summary Last Updated: 09-May-2021 15:23 by Felisa KhouryRN) [facility] Laboratory - Chemistry and C hemistry - challengeon 05-09-2021 Anion gap [Moles/Vol] 9 mmol/L below low threshold 10 - 20 [facility] Work Phone: Calcium [Mass/Vol] 8.5 mg/dL below low threshold 8.6 - 10.3 [facility] Work Phone: Chloride [Moles/Vol] 106 mmol/L 98 - 107 [facility] Work Phone: [phone] CO2 [Moles/Vol] 28 mmol/L 21 - 32 [facility] Work Phone: [phone] Creatinine [Mass/Vol] 0.86 mg/dL See Below [facility] Work Phone: [phone] Comment on above: Reference Range: 0.5 0 - 1.30 Glucose [Mass/Vol] 115 mg/dL above high threshold 74 - 99 [facility] Work Phone: [phone] Potassium [Moles/Vol] 4.9 mmol/L 3.5 - 5.3 [facility] Work Phone: [phone] Sodium [Moles/Vol] 138 mmol/L 136 - 145 [facility] Work Phone: Urea nitrogen [Mass/Vol] 21 mg/dL 6 - 23 [facility] Work Phone: [phone] Laboratory - Hematology and Cell countson 05-09-2021 Erythrocyte distribution width (RBC) [Ratio] 12.5 % See Below [facility] Work Phone: [phone] Comment on above: Reference Range: 11. 5 - 14.5 Hematocrit (Bld) [Volume fraction] 39.1 % below low threshold See Below [facility] Work Phone: Comment on above: Reference Range: 41. 0 - 52.0 Hemoglobin (Bld) [Mass/Vol] 13.0 g/dL below low threshold See Below [facility] Work Phone: Comment on above: Reference Range: 13. 5 - 17.5 MCHC (RBC) [Mass/Vol] 33.1 g/dL See Below [facility] Work Phone: Comment on above: Reference Range: 32. 0 - 36.0 MCV (RBC) [Entitic vol] 91 fL 80 - 100 [facility] Work Phone: Platelets (Bld) [#/Vol] 350 10*3/uL 150 - 450 [facility] Work Phone: [phone] RBC (Bld) [#/Vol] 4.31 {x10E12/L} below low threshold See Below [facility] Work Phone: Comment on above: Reference Range: 4.5 0 - 5.90 WBC (Bld) [#/Vol] 14.8 10*3/uL above high threshold 4.4 - 11.3 [facility] Work Phone: No Panel Informationon 05-09 >60 >60 [facility] Work Phone: Comment on above: CALCULATIONS OF MARINA MATED GFR ARE PERFORMED USING THE MDRD STUDY EQUATION FOR THE IDMS-TRACEABLE CREATININE METHODS. CLIN CHEM 2007;53:766-72 Order Reconciliationon 05-09 Order Reconciliation Page 1 Discharge Reconciliation Document Reconciliation Type: Discharge requested on behalf of Viola Quezada (Physician) done by Viola Quezada) Discharge - Reconciliation: 09-May-2021 14:35 by: Viola Quezada) Current OrdersDateHOME MEDICATIONS AT DISCHARGE DateReconciliation Comment/ Additional Information Acetaminophen Tablet (TYLENOL)DOSE = 650 mg Oral Every 4 Hours, PRN Temp Greater Than or Equal to 38.0 C 05-May-2021 06:27 Acetaminophen is not required Albuterol 2.5mg - Ipratropium 0.5 mg/ 3mL Neb Soln (DUONEB)DOSE = 3 mL Inhalation Every 6 Hours via Nebulizer 05-May-2021 08:22 Albuterol 2.5mg - Ipratropium 0.5 mg/ 3mL Neb Soln is not required Ascorbic Acid Tablet (VITAMIN C)DOSE = 500 mg Oral 2 Times a Day 08-May-2021 08:40 Ascorbic Acid is not required Azithromycin Tablet (ZITHROMAX)DOSE = 500 mg Oral Every 24 Hours 05-May-2021 06:31 Azithromycin is not required Budesonide 0.5 mg/ 2 mL Nebulizer Soln (PULMICORT)DOSE = 2 mL Inhalation Every 12 Hours via Nebulizer 05-May-2021 06:47 Budesonide 0.5 mg/ 2 mL Nebulizer Soln is not required cefTRIAXone 1 gram/ Dextrose 5% IVPB Premixed Soln 50 mL (ROCEPHIN)Every 24 HoursRecommended Infusion Time: 30 minute(s) 05-May-2021 06:31 cefTRIAXone 1 gram/ Dextrose 5% IVPB Premixed Soln 50 mL is not required Cholecalciferol (Vitamin D3) TabletDOSE = 1,000 International Unit(s Oral DailyNotes from Pharmacy: 1,000 units equivalent to 25 micrograms 08-May-2021 08:40 Cholecalciferol (Vitamin D3) is not required Enoxaparin SubCutaneous (LOVENOX)DOSE = 80 mg SubCutaneous Every 12 Hours 05-May-2021 08:33 Enoxaparin SubCutaneous is not required guaiFENesin Extended Release Tablet, Extended Release (MUCINEX)DOSE = 600 mg Oral Every 12 Hours, PRN Congestion 05-May-2021 06:27 guaiFENesin Extended Release is not required methylPREDNISolone Sodium Succinate Injectable (SOLU-MEDROL)DOSE = 40 mg IntraVenous Push Every 6 HoursCa mg/DOSE x 1 = 40 mg/Dose (Requested dose was 40 mg per Flat Dose) (Daily Total is 160 mg) 05-May-2021 06:31 methylPREDNISolone Sodium Succinate Injectable is not required Non-Formulary Medication N-Acetylcysteine CapsuleDose = 600 mg Oral 2 Times a DayClinician Notes: 1 capsule = 600 mg Please send 2 capsules for cart fill 05-May-2021 10:41 Non-Formulary Medication is not required Ondansetron Injectable (ZOFRAN)DOSE = 4 mg IntraVenous Push Every 4 Hours, PRN Nausea and/or Vomiting 05-May-2021 06:27 Ondansetron Injectable is not required Sodium Chloride 0.9% Injectable Flush via Peripheral LineVolume = 10 mL IntraVenous Flush Every 8 Hours and as Needed 05-May-2021 06:27 Sodium Chloride 0.9% Injectable Flush is not required Sore Throat Lozenge LozengeDOSE = 1 lozenge(s) Oral Every 2 Hours, PRN Sore ThroatCa lozenge(s)/DOSE x 1 = 1 lozenge(s)/Dose (Daily Total is 12 lozenge(s)) 05-May-2021 06:27 Sore Throat Lozenge is not required Zinc Sulfate CapsuleDOSE = 220 mg Oral Daily 08-May-2021 08:46 Zinc Sulfate is not required Home Medications Added During Discharge Reconciliation Medrol Dosepak 4 mg oral tablet 1 packet(s) orally once a day All Active Home Medications at time of Discharge Reconciliation: 09-May-2021 14:35 Medrol Dosepak 4 mg oral tablet 1 packet(s) orally once a day Normal [facility] BASIC METABOLIC PANELon 12-0 Anion gap [Moles/Vol] 12 mmol/L Normal 10 - 20 [facility] Comment on above: Performed By: #### B LDC #### [facility] [address] [place] [address] Calcium [Mass/Vol] 8.7 mg/dL Normal 8.6 - 10.3 [facility] Comment on above: Performed By: #### B LDC #### [facility] [address] [place] [address] Chloride [Moles/Vol] 104 mmol/L Normal 98 - 107 [facility] Comment on above: Performed By: #### B LDC #### [facility] [address] [place] [address] Creatinine [Mass/Vol] 0.87 mg/dL Normal 0.50 - 1.30 [facility] Comment on above: Performed By: #### B LDC #### [facility] [address] [place] [address] GFR- AM. >60 Normal >60 [facility] Comment on above: Result Comment: CALC ULATIONS OF ESTIMATED GFR ARE PERFORMED USING THE MDRD STUDY EQUATION FOR THE IDMS-TRACEABLE CREATININE METHODS. CLIN CHEM 2007;53:766-72 Performed By: #### B LDC #### [facility] [address] [place] [address] GFR-NON AM. >60 Normal >60 [facility] Comment on above: Performed By: #### B LDC #### [facility] [address] [place] [address] Glucose [Mass/Vol] 124 mg/dL High 74 - 99 [facility] Comment on above: Performed By: #### B LDC #### [facility] [address] [place] [address] HCO3 (Bld) [Moles/Vol] 29 mmol/L Normal 21 - 32 [facility] Comment on above: Performed By: #### B LDC #### [facility] [address] [place] [address] Potassium [Moles/Vol] 4.5 mmol/L Normal 3.5 - 5.3 [facility] Comment on above: Performed By: #### B LDC #### [facility] [address] [place] [address] Sodium [Moles/Vol] 140 mmol/L Normal 136 - 145 [facility] Comment on above: Performed By: #### B LDC #### [facility] [address] [place] [address] Urea nitrogen [Mass/Vol] 22 mg/dL Normal 6 - 23 [facility] Comment on above: Performed By: #### B LDC #### [facility] [address] [place] [address] CBCon 05-08-2021 Erythrocyte distribution width (RBC) [Ratio] 12.6 % Normal 11.5 - 14.5 [facility] Comment on above: Performed By: #### B LDC #### [facility] [address] [place] [address] Hematocrit (Bld) [Volume fraction] 39.8 % Low 41.0 - 52.0 [facility] Comment on above: Performed By: #### B LDC #### [facility] [address] [place] [address] Hemoglobin (Bld) [Mass/Vol] 13.2 g/dL Low 13.5 - 17.5 [facility] Comment on above: Performed By: #### B LDC #### [facility] [address] [place] [address] MCHC (RBC) [Mass/Vol] 33.2 g/dL Normal 32.0 - 36.0 [facility] Comment on above: Performed By: #### B LDC #### [facility] [address] [place] [address] MCV (RBC) [Entitic vol] 90 fL Normal 80 - 100 [facility] Comment on above: Performed By: #### B LDC #### [facility] [address] [place] [address] Platelets (Bld) [#/Vol] 342 10*3/uL Normal 150 - 450 [facility] Comment on above: Performed By: #### B LDC #### [facility] [address] [place] [address] RBC 4.42 x10E12/L Low 4.50 - 5.90 [facility] Comment on above: Performed By: #### B LDC #### [facility] [address] [place] [address] WBC (Bld) [#/Vol] 14.2 10*3/uL High 4.4 - 11.3 [facility] Comment on above: Performed By: #### B LDC #### [facility] [address] [place] [address] Daily Progress Note-Medicine on 05-08-2021 Daily Progress Note-Medicine Service: Medicine Subjective Data: WERNER YEPEZ is a 35 year old Male who is Hospital Day # 4. SOB still present still desats on activity no fever or chills or cough no n/v/d no bleeding. Objective Data: Objective Information: T PRBPSpO2 [id number]/5089% Date/Time05/08 9: 9: 0:00107/09 9: 9:06 Range(36.2C - 37C ) (90 - 98 ) (20 - 20 ) (118 - 138 )/ (50 - 77 ) (89% - 92% ) As of 08-May-2021 09:06:00, patient is on 4 L/min of oxygen via nasal cannula. Highest temp of 37 C was recorded at 05/08 9:06 Pain reported at 05/08 8:30: 0 = None Physical Exam Narrative: Physical Exam: Constitutional: Well developed, awake/alert/oriented x3, no distress, alert and cooperative Eyes: PERRL, EOMI, clear sclera ENMT: mucous membranes moist, no apparent injury, no lesions seen Head/Neck: Neck supple, no apparent injury, thyroid without mass or tenderness, No JVD, trachea midline, no bruits Respiratory/Thorax: aprsounds at bases b/l Cardiovascular: Regular, rate and rhythm, no murmurs, 2+ equal pulses of the extremities, normal S 1and S 2 Gastrointestinal: Nondistended, soft, non-tender, no rebound tenderness or guarding, no masses palpable, no organomegaly, +BS, no bruits Musculoskeletal: ROM intact, no joint swelling, normal strength Extremities: normal extremities, no cyanosis edema, contusions or wounds, no clubbing Neurological: alert and oriented x3, intact senses, motor, response and reflexes, normal strength Lymphatic: No significant lymphadenopathy Psychological: Appropriate mood and behavior Skin: Warm and dry, no lesions, no rashes Medication: Medications: Continuous Medications ------ No continuous medications are active Scheduled Medications ------ 1. Albuterol 2.5mg - Ipratropium 0.5 mg/ 3mL Neb Soln: 3 mL Inhalation Every 6 Hours 2. Ascorbic Acid: 500 mg Oral 2 Times a Day 3. Azithromycin: 500 mg Oral Every 24 Hours 4. Budesonide 0.5 mg/ 2 mL Nebulizer Soln: 2 mL Inhalation Every 12 Hours 5. cefTRIAXone 1 gram/ Dextrose 5% IVPB Premixed Soln 50 mL: 50 mL IntraVenous Piggyback Every 24 Hours 6. Cholecalciferol (Vitamin D3): 1000 International Unit(s) Oral Daily 7. Enoxaparin SubCutaneous: 80 mg SubCutaneous Every 12 Hours 8. methylPREDNISolone Sodium Succinate Injectable: 40 mg IntraVenous Push Every 6 Hours 9. Non-Formulary Medication: N-Acetylcysteine Capsule Dose = 600 mg Oral 2 Times a Day Clinician Notes: 1 capsule = 600 mg Please send 2 capsules for cart fill: 10. Remdesivir IntraVenous Infusion (for patients > = 40 kilograms): 100 mg IntraVenous Infusion Every 24 Hours 11. Zinc Sulfate: 220 mg Oral Daily PRN Medications ------ 1. Acetaminophen: 650 mg Oral Every 4 Hours 2. guaiFENesin Extended Release: 600 mg Oral Every 12 Hours 3. Ondansetron Injectable: 4 mg IntraVenous Push Every 4 Hours 4. Sodium Chloride 0.9% Injectable Flush: 10 mL IntraVenous Flush Every 8 Hours and as Needed 5. Sore Throat Lozenge: 1 lozenge(s) Oral Every 2 Hours Recent Lab Results: Results: CBC: 05/08/2021 05:19 \ Hgb / \ 13.2 L / WBC Plt 14.2 H 342 / Hct \ / 39.8 L \ RBC: 4.42 L MCV: 90 BMP: 05/08/2021 05:19 NA+ Cl- BUN / 140 104 22 / ------ Glucose - 124 H K+ HCO3- Creat \ 4.5 29 0.87 \ Calcium : 8.7 Anion Gap : 12 Assessment and Plan: Comorbidities: ComorbidityOther Code Status: Code StatusFull Code Assessment: 35-year-old male presented with hypoxia from COVID-19 pneumonia as well possible community-acquired pneumonia Plan Duo nebs every 4 hours Symbicort inhaler twice daily Methylprednisolone 40 Mg IV every 6 hours Lovenox dosing as per d dimer 80 mg SC twice a day Ceftriaxone 1 g IV daily Azithromycin 500 mg daily procalcitonin low though but clinical suspicion Sputum cultures and blood cultures Antibiotics to cover bacterial pneumonia component Remdesivir IV to Wean oxygen as tolerated - 4 L currently but still desats quick on activity d/w RT will walk again am for dc readiness hopefully Supportive care and symptomatic management Education counseling Cough suppressants, Tylenol for fever and antiemetics if needed Continuous cardiopulmonary monitoring and constant pulse ox Electronic Signatures: Viola Quezada) (Signed 08-May-2021 23:08) Authored: Service, Subjective Data, Objective Data, Assessment and Plan, Note Completion Last Updated: 08-May-2021 23:08 by Viola Quezada) [facility] Laboratory - Chemistry and C hemistry - challengeon 05-08-2021 Anion gap [Moles/Vol] 12 mmol/L 10 - 20 [facility] Work Phone: Calcium [Mass/Vol] 8.7 mg/dL 8.6 - 10.3 [facility] Work Phone: Chloride [Moles/Vol] 104 mmol/L 98 - 107 [facility] Work Phone: CO2 [Moles/Vol] 29 mmol/L 21 - 32 [facility] Work Phone: Creatinine [Mass/Vol] 0.87 mg/dL See Below [facility] Work Phone: Comment on above: Reference Range: 0.5 0 - 1.30 Glucose [Mass/Vol] 124 mg/dL above high threshold 74 - 99 [facility] Work Phone: Potassium [Moles/Vol] 4.5 mmol/L 3.5 - 5.3 [facility] Work Phone: Sodium [Moles/Vol] 140 mmol/L 136 - 145 [facility] Work Phone: Urea nitrogen [Mass/Vol] 22 mg/dL 6 - 23 [facility] Work Phone: [phone] Laboratory - Hematology and Cell countson 05-08-2021 Erythrocyte distribution width (RBC) [Ratio] 12.6 % See Below [facility] Work Phone: [phone] Comment on above: Reference Range: 11. 5 - 14.5 Hematocrit (Bld) [Volume fraction] 39.8 % below low threshold See Below [facility] Work Phone: [phone] Comment on above: Reference Range: 41. 0 - 52.0 Hemoglobin (Bld) [Mass/Vol] 13.2 g/dL below low threshold See Below [facility] Work Phone: [phone] Comment on above: Reference Range: 13. 5 - 17.5 MCHC (RBC) [Mass/Vol] 33.2 g/dL See Below [facility] Work Phone: [phone] Comment on above: Reference Range: 32. 0 - 36.0 MCV (RBC) [Entitic vol] 90 fL 80 - 100 [facility] Work Phone: [phone] Platelets (Bld) [#/Vol] 342 10*3/uL 150 - 450 [facility] Work Phone: [phone] RBC (Bld) [#/Vol] 4.42 {x10E12/L} below low threshold See Below [facility] Work Phone: [phone] Comment on above: Reference Range: 4.5 0 - 5.90 WBC (Bld) [#/Vol] 14.2 10*3/uL above high threshold 4.4 - 11.3 [facility] Work Phone: [phone] Panel Informationon 05-08 >60 >60 [facility] Work Phone: [phone] Comment on above: CALCULATIONS OF MARINA MATED GFR ARE PERFORMED USING THE MDRD STUDY EQUATION FOR THE IDMS-TRACEABLE CREATININE METHODS. CLIN CHEM 2007;53:766-72 BASIC METABOLIC PANELon 12-0 Anion gap [Moles/Vol] 12 mmol/L Normal 10 - 20 [facility] Comment on above: Performed By: #### B LDC #### [facility] [address] [place] [address] Calcium [Mass/Vol] 8.9 mg/dL Normal 8.6 - 10.3 [facility] Comment on above: Performed By: #### B LDC #### [facility] [address] [place] [address] Chloride [Moles/Vol] 102 mmol/L Normal 98 - 107 [facility] Comment on above: Performed By: #### B LDC #### [facility] [address] [place] [address] Creatinine [Mass/Vol] 0.89 mg/dL Normal 0.50 - 1.30 [facility] Comment on above: Performed By: #### B LDC #### [facility] [address] [place] [address] GFR- AM. >60 Normal >60 [facility] Comment on above: Result Comment: CALC ULATIONS OF ESTIMATED GFR ARE PERFORMED USING THE MDRD STUDY EQUATION FOR THE IDMS-TRACEABLE CREATININE METHODS. CLIN CHEM 2007;53:766-72 Performed By: #### B LDC #### [facility] [address] [place] [address] GFR-NON AM. >60 Normal >60 [facility] Comment on above: Performed By: #### B LDC #### [facility] [address] [place] [address] Glucose [Mass/Vol] 137 mg/dL High 74 - 99 [facility] Comment on above: Performed By: #### B LDC #### [facility] [address] [place] [address] HCO3 (Bld) [Moles/Vol] 28 mmol/L Normal 21 - 32 [facility] Comment on above: Performed By: #### B LDC #### [facility] [address] [place] [address] Potassium [Moles/Vol] 3.9 mmol/L Normal 3.5 - 5.3 [facility] Comment on above: Performed By: #### B LDC #### [facility] [address] [place] [address] Sodium [Moles/Vol] 138 mmol/L Normal 136 - 145 [facility] Comment on above: Performed By: #### B LDC #### [facility] [address] [place] [address] Urea nitrogen [Mass/Vol] 25 mg/dL High 6 - 23 [facility] Comment on above: Performed By: #### B LDC #### [facility] [address] [place] [address] CBCon 05-07-2021 Erythrocyte distribution width (RBC) [Ratio] 12.6 % Normal 11.5 - 14.5 [facility] Comment on above: Performed By: #### B LDC #### [facility] [address] [place] [address] Hematocrit (Bld) [Volume fraction] 41.5 % Normal 41.0 - 52.0 [facility] Comment on above: Performed By: #### B LDC #### [facility] [address] [place] [address] Hemoglobin (Bld) [Mass/Vol] 13.6 g/dL Normal 13.5 - 17.5 [facility] Comment on above: Performed By: #### B LDC #### [facility] [address] [place] [address] MCHC (RBC) [Mass/Vol] 32.8 g/dL Normal 32.0 - 36.0 [facility] Comment on above: Performed By: #### B LDC #### [facility] [address] [place] [address] MCV (RBC) [Entitic vol] 91 fL Normal 80 - 100 [facility] Comment on above: Performed By: #### B LDC #### [facility] [address] [place] [address] Platelets (Bld) [#/Vol] 313 10*3/uL Normal 150 - 450 [facility] Comment on above: Performed By: #### B LDC #### [facility] [address] [place] [address] RBC 4.54 x10E12/L Normal 4.50 - 5.90 [facility] Comment on above: Performed By: #### B LDC #### [facility] [address] [place] [address] WBC (Bld) [#/Vol] 13.3 10*3/uL High 4.4 - 11.3 [facility] Comment on above: Performed By: #### B LDC #### [facility] [address] [place] [address] D-DIMER, NON VTEon 1 D-DIMER, NON VTE 492 ng/mL FEU Normal = 500 [facility] Comment on above: Result Comment: THE D-DIMER ASSAY IS REPORTED IN NG/ML FIBRINOGEN EQUIVALENT UNITS (FEU). THE RESULTS OF THIS ASSAY SHOULD NOT BE USED FOR THE EXCLUSION OF DEEP VEIN THROMBOSIS AND/OR PULMONARY EMBOLISM. Performed By: #### D HIMA #### [facility] [address] [place] [address] Daily Progress Note-Medicine on 05-07-2021 Daily Progress Note-Medicine Service: Medicine Subjective Data: WERNER YEPEZ is a 35 year old Male who is Hospital Day # 3. SOB still desats on activity no fever or chills or cough no n/v/d no bleeding. Objective Data: Objective Information: T PRBPSpO2 [id number]/8890% Date/Time05/07 8: 8: 8: 8: 8:38 Range(36.4C - 36.7C ) (90 - 98 ) (18 - 20 ) (122 - 145 )/ (70 - 88 ) (90% - 93% ) Pain reported at 05/07 8:38: 0 = None Physical Exam Narrative: Physical Exam: Constitutional: Well developed, awake/alert/oriented x3, no distress, alert and cooperative Eyes: PERRL, EOMI, clear sclera ENMT: mucous membranes moist, no apparent injury, no lesions seen Head/Neck: Neck supple, no apparent injury, thyroid without mass or tenderness, No JVD, trachea midline, no bruits Respiratory/Thorax: dec .sounds at bases b/l Cardiovascular: Regular, rate and rhythm, no murmurs, 2+ equal pulses of the extremities, normal S 1and S 2 Gastrointestinal: Nondistended, soft, non-tender, no rebound tenderness or guarding, no masses palpable, no organomegaly, +BS, no bruits Musculoskeletal: ROM intact, no joint swelling, normal strength Extremities: normal extremities, no cyanosis edema, contusions or wounds, no clubbing Neurological: alert and oriented x3, intact senses, motor, response and reflexes, normal strength Lymphatic: No significant lymphadenopathy Psychological: Appropriate mood and behavior Skin: Warm and dry, no lesions, no rashes Medication: Medications: Continuous Medications ------ No continuous medications are active Scheduled Medications ------ 1. Albuterol 2.5mg - Ipratropium 0.5 mg/ 3mL Neb Soln: 3 mL Inhalation Every 6 Hours 2. Azithromycin: 500 mg Oral Every 24 Hours 3. Budesonide 0.5 mg/ 2 mL Nebulizer Soln: 2 mL Inhalation Every 12 Hours 4. cefTRIAXone 1 gram/ Dextrose 5% IVPB Premixed Soln 50 mL: 50 mL IntraVenous Piggyback Every 24 Hours 5. Enoxaparin SubCutaneous: 80 mg SubCutaneous Every 12 Hours 6. methylPREDNISolone Sodium Succinate Injectable: 40 mg IntraVenous Push Every 6 Hours 7. Non-Formulary Medication: N-Acetylcysteine Capsule Dose = 600 mg Oral 2 Times a Day Clinician Notes: 1 capsule = 600 mg Please send 2 capsules for cart fill: 8. Remdesivir IntraVenous Infusion (for patients > = 40 kilograms): 100 mg IntraVenous Infusion Every 24 Hours PRN Medications ------ 1. Acetaminophen: 650 mg Oral Every 4 Hours 2. guaiFENesin Extended Release: 600 mg Oral Every 12 Hours 3. Ondansetron Injectable: 4 mg IntraVenous Push Every 4 Hours 4. Sodium Chloride 0.9% Injectable Flush: 10 mL IntraVenous Flush Every 8 Hours and as Needed 5. Sore Throat Lozenge: 1 lozenge(s) Oral Every 2 Hours Recent Lab Results: Results: CBC: 05/07/2021 05:40 \ Hgb / \ 13.6 / WBC Plt 13.3 H 313 / Hct \ / 41.5 \ RBC: 4.54 MCV: 91 BMP: 05/07/2021 05:40 NA+ Cl- BUN / 138 102 25 H / ------ Glucose - 137 H K+ HCO3- Creat \ 3.9 28 0.89 \ Calcium : 8.9 Anion Gap : 12 Coagulation: null PT / / -------< INR < PTT\ \ Assessment and Plan: Code Status: Code StatusFull Code Assessment: 35-year-old male presented with hypoxia from COVID-19 pneumonia as well possible community-acquired pneumonia Plan Duo nebs every 4 hours Symbicort inhaler twice daily Methylprednisolone 40 Mg IV every 6 hours Lovenox dosing as per d dimer and to recheck am Ceftriaxone 1 g IV daily Azithromycin 500 mg daily procalcitonin low though but clinical suspicion Sputum cultures and blood cultures Antibiotics to cover bacterial pneumonia component Remdesivir IV to consider Wean oxygen as tolerated - 4 L currently but desats quick on activity Supportive care and symptomatic management Education counseling Cough suppressants, Tylenol for fever and antiemetics if needed Continuous cardiopulmonary monitoring and constant pulse ox ambulatory pulse ox - d/w RN not ready yet for home O2 dispo safely Electronic Signatures: Viola Quezada) (Signed 07-May-2021 23:18) Authored: Service, Subjective Data, Objective Data, Assessment and Plan, Note Completion Last Updated: 07-May-2021 23:18 by Viola Quezada) [facility] Laboratory - Chemistry and C hemistry - challengeon 05-07-2021 Anion gap [Moles/Vol] 12 mmol/L 10 - 20 [facility] Work Phone: [phone] Calcium [Mass/Vol] 8.9 mg/dL 8.6 - 10.3 [facility] Work Phone: [phone] Chloride [Moles/Vol] 102 mmol/L 98 - 107 [facility] Work Phone: [phone] CO2 [Moles/Vol] 28 mmol/L 21 - 32 [facility] Work Phone: [phone] Creatinine [Mass/Vol] 0.89 mg/dL See Below [facility] Work Phone: [phone] Comment on above: Reference Range: 0.5 0 - 1.30 Glucose [Mass/Vol] 137 mg/dL above high threshold 74 - 99 [facility] Work Phone: [phone] Potassium [Moles/Vol] 3.9 mmol/L 3.5 - 5.3 [facility] Work Phone: Sodium [Moles/Vol] 138 mmol/L 136 - 145 [facility] Work Phone: [phone] Urea nitrogen [Mass/Vol] 25 mg/dL above high threshold 6 - 23 [facility] Work Phone: [phone] Laboratory - Coagulationon 1 07-08-2020 Fibrin D-dimer DDU (PPP) [Mass/Vol] 492 {ng/mL_FEU} = 500 [facility] Work Phone: Comment on above: THE D-DIMER ASSAY IS REPORTED IN NG/ML FIBRINOGEN EQUIVALENT UNITS (FEU). THE RESULTS OF THIS ASSAY SHOULD NOT BE USED FOR THE EXCLUSION OF DEEP VEIN THROMBOSIS AND/OR PULMONARY EMBOLISM. Laboratory - Hematology and Cell countson 05-07-2021 Erythrocyte distribution width (RBC) [Ratio] 12.6 % See Below [facility] Work Phone: Comment on above: Reference Range: 11. 5 - 14.5 Hematocrit (Bld) [Volume fraction] 41.5 % See Below [facility] Work Phone: Comment on above: Reference Range: 41. 0 - 52.0 Hemoglobin (Bld) [Mass/Vol] 13.6 g/dL See Below [facility] Work Phone: [phone] Comment on above: Reference Range: 13. 5 - 17.5 MCHC (RBC) [Mass/Vol] 32.8 g/dL See Below [facility] Work Phone: [phone] Comment on above: Reference Range: 32. 0 - 36.0 MCV (RBC) [Entitic vol] 91 fL 80 - 100 [facility] Work Phone: [phone] Platelets (Bld) [#/Vol] 313 10*3/uL 150 - 450 [facility] Work Phone: RBC (Bld) [#/Vol] 4.54 {x10E12/L} See Below [facility] Work Phone: [phone] Comment on above: Reference Range: 4.5 0 - 5.90 WBC (Bld) [#/Vol] 13.3 10*3/uL above high threshold 4.4 - 11.3 [facility] Work Phone: No Panel Informationon 05-07 >60 >60 [facility] Work Phone: Comment on above: CALCULATIONS OF MARINA MATED GFR ARE PERFORMED USING THE MDRD STUDY EQUATION FOR THE IDMS-TRACEABLE CREATININE METHODS. CLIN CHEM 2007;53:766-72 CBCon 05-06-2021 Erythrocyte distribution width (RBC) [Ratio] 12.4 % Normal 11.5 - 14.5 [facility] Comment on above: Performed By: #### B LDC #### [facility] [address] [place] [address] Hematocrit (Bld) [Volume fraction] 42.2 % Normal 41.0 - 52.0 [facility] Comment on above: Performed By: #### B LDC #### [facility] [address] [place] [address] Hemoglobin (Bld) [Mass/Vol] 14.3 g/dL Normal 13.5 - 17.5 [facility] Comment on above: Performed By: #### B LDC #### [facility] [address] [place] [address] MCHC (RBC) [Mass/Vol] 33.8 g/dL Normal 32.0 - 36.0 [facility] Comment on above: Performed By: #### B LDC #### [facility] [address] [place] [address] MCV (RBC) [Entitic vol] 90 fL Normal 80 - 100 [facility] Comment on above: Performed By: #### B LDC #### [facility] [address] [place] [address] Platelets (Bld) [#/Vol] 261 10*3/uL Normal 150 - 450 [facility] Comment on above: Performed By: #### B LDC #### [facility] [address] [place] [address] RBC 4.70 x10E12/L Normal 4.50 - 5.90 [facility] Comment on above: Performed By: #### B LDC #### [facility] [address] [place] [address] WBC (Bld) [#/Vol] 7.3 10*3/uL Normal 4.4 - 11.3 [facility] Comment on above: Performed By: #### B LDC #### [facility] [address] [place] [address] COMPREHENSIVE PANELon 2020 Albumin [Mass/Vol] 3.8 g/dL Normal 3.4 - 5.0 [facility] Comment on above: Performed By: #### C ####[address] [place] [address] ALT [Catalytic activity/Vol] 23 U/L Normal 10 - 52 [facility] Comment on above: Result Comment: Danyelle ents treated with Sulfasalazine may generate falsely decreased results for ALT. Performed By: #### C MP ####[address] [address] AST [Catalytic activity/Vol] 25 U/L Normal 9 - 39 [facility] Comment on above: Performed By: #### C MP ####[address] [address] GFR- AM. >60 Normal >60 [facility] Comment on above: Result Comment: CALC ULATIONS OF ESTIMATED GFR ARE PERFORMED USING THE MDRD STUDY EQUATION FOR THE IDMS-TRACEABLE CREATININE METHODS. CLIN CHEM 2007;53:766-72 Performed By: #### C MP ####[address] [address] GFR-NON AM. >60 Normal >60 [facility] Comment on above: Performed By: #### C MP ####[address] [address] HCO3 (Bld) [Moles/Vol] 26 mmol/L Normal 21 - 32 [facility] Comment on above: Performed By: #### C MP ####[address] [address] ALP [Catalytic activity/Vol] 39 U/L Normal 33 - 120 [facility] Work Phone: Comment on above: Performed By: #### C MP ####[address] [address] Anion gap [Moles/Vol] 15 mmol/L Normal 10 - 20 [facility] Work Phone: Comment on above: Performed By: #### C MP ####[address] [address] Bilirubin [Mass/Vol] 0.6 mg/dL Normal 0.0 - 1.2 [facility] Work Phone: Comment on above: Performed By: #### C MP ####[address] [address] Calcium [Mass/Vol] 9.0 mg/dL Normal 8.6 - 10.3 [facility] Work Phone: Comment on above: Performed By: #### C MP ####[address] [address] Chloride [Moles/Vol] 98 mmol/L Normal 98 - 107 [facility] Work Phone: Comment on above: Performed By: #### C MP ####[address] [address] Creatinine [Mass/Vol] 0.87 mg/dL Normal 0.50 - 1.30 [facility] Work Phone: Comment on above: Reference Range: 0.5 0 - 1.30 Performed By: #### C MP ####[address] [address] Glucose [Mass/Vol] 126 mg/dL High 74 - 99 [facility] Work Phone: Comment on above: Performed By: #### C MP ####[address] [address] Potassium [Moles/Vol] 3.7 mmol/L Normal 3.5 - 5.3 [facility] Work Phone: Comment on above: Performed By: #### C MP ####[address] [address] Protein [Mass/Vol] 6.6 g/dL Normal 6.4 - 8.2 [facility] Work Phone: Comment on above: Performed By: #### C MP ####[address] [address] Sodium [Moles/Vol] 135 mmol/L Low 136 - 145 [facility] Work Phone: Comment on above: Performed By: #### C MP ####[address] [address] Urea nitrogen [Mass/Vol] 21 mg/dL Normal 6 - 23 [facility] Work Phone: Comment on above: Performed By: #### C ####[address] [address] [place] [id number] Daily Progress Note-Critical Careon 05-06-2021 Daily Progress Note-Critical Care Service: Critical Care Subjective Data: WERNER YEPEZ is a 35 year old Male who is Hospital Day # 2. Patient seen and examined at the bedside this morning He is laying comfortably in bed He states that he is feeling much improved His cough is better his shortness of breath is better he is ambulating to the bathroom on his own His appetite is also better. Objective Data: Objective Information: T PRBPSpO2 [id number]/7691% Date/Time05/06 2: 2: 2: 2: 2:58 Range(36.5C - 38.6C ) (85 - 112 ) (18 - 29 ) (123 - 141 )/ (76 - 86 ) (87% - 93% ) As of 05-May-2021 20:48:00, patient is on 4 L/min of oxygen via nasal cannula. Highest temp of 38.6 C was recorded at 05/05 11:50 Pain reported at 05/05 20:46: 0 = None Physical Exam by System: Constitutional: Awake, alert, oriented, no acute distress Eyes: extraocular muscles intact ENMT: moist mucous membranes Nasal cannula in place Head/Neck: normocephalic, atraumatic Respiratory/Thorax: bilateral equal breath sounds Cardiovascular: regular rhythm, slightly tachycardic Gastrointestinal: soft, nontender, nondistended Musculoskeletal: moving all extremities Extremities: no peripheral edema Neurological: awake, alert, oriented Psychological: cooperative Skin: warm and dry Medication: Medications: Continuous Medications ------ No continuous medications are active Scheduled Medications ------ 1. Albuterol 2.5mg - Ipratropium 0.5 mg/ 3mL Neb Soln: 3 mL Inhalation Every 6 Hours 2. Azithromycin: 500 mg Oral Every 24 Hours 3. Budesonide 0.5 mg/ 2 mL Nebulizer Soln: 2 mL Inhalation Every 12 Hours 4. cefTRIAXone 1 gram/ Dextrose 5% IVPB Premixed Soln 50 mL: 50 mL IntraVenous Piggyback Every 24 Hours 5. Enoxaparin SubCutaneous: 80 mg SubCutaneous Every 12 Hours 6. methylPREDNISolone Sodium Succinate Injectable: 40 mg IntraVenous Push Every 6 Hours 7. Non-Formulary Medication: N-Acetylcysteine Capsule Dose = 600 mg Oral 2 Times a Day Clinician Notes: 1 capsule = 600 mg Please send 2 capsules for cart fill: 8. Remdesivir IntraVenous Infusion (for patients > = 40 kilograms): 100 mg IntraVenous Infusion Every 24 Hours PRN Medications ------ 1. Acetaminophen: 650 mg Oral Every 4 Hours 2. guaiFENesin Extended Release: 600 mg Oral Every 12 Hours 3. Ondansetron Injectable: 4 mg IntraVenous Push Every 4 Hours 4. Sodium Chloride 0.9% Injectable Flush: 10 mL IntraVenous Flush Every 8 Hours and as Needed 5. Sore Throat Lozenge: 1 lozenge(s) Oral Every 2 Hours Recent Lab Results: Results: CBC: 05/06/2021 07:14 \ Hgb / \ 14.3 / WBC Plt 7.3 261 / Hct \ / 42.2 \ RBC: 4.70 MCV: 90 CMP: 05/06/2021 07:14 NA+ Cl- BUN / 135 L 98 21 / ------ Glucose - 126 H K+ HCO3- Creat \ 3.7 26 0.87 \ \ T Bili / \ 0.6 / AST x ---- x ALT 25 x ---- x 23 / Alk P \ / 39 \ Calcium : 9.0 Anion Gap : 15 Albumin : 3.8 T Protein : 6.6 Assessment and Plan: Code Status: Code StatusFull Code Assessment: COVID-19 pneumonia: Severe Acute hypoxemic respiratory failure Bilateral pulmonary infiltrates Elevated inflammatory markers Factor V Leiden deficiency History of leukemia Plan: At this time he is on Zithromax and Rocephin day 2 His procalcitonin level is 0.18 so pretty low and would point away from a bacterial process He is on Lovenox 80 mg twice per day He is on IV steroids He is on breathing treatments He is on Remdesivir day 2 He is on oral N-acetylcysteine He is currently on 4 L of oxygen via nasal cannula At this time he seems to be progressing in the right direction He is feeling better his cough is better his breathing is better he is getting up and around better His procalcitonin level is low He is currently on Lovenox covering him for DVT prophylaxis Continue to support his oxygen and up and around as able If he continues to do well the next 24 hours I would advise walking him and determining ability to go home and recover at home I will order a D-dimer for tomorrow to help determine if this is able to be accomplished if he will need Xarelto going home At this time I would continue his medical management as he is on and try to plan soon for discharge to home As always Covid can change. If anything changes please call me However at this time I will sign off and call me if anything worsens or new needs or problems arise Electronic Signatures: Osmany Marie () (Signed 06-May-2021 08:40) Authored: Service, Subjective Data, Objective Data, Assessment and Plan, Note Completion Last Updated: 06-May-2021 08:40 by Osmany Marie () [facility] Daily Progress Note-Medicine on 05-06-2021 Daily Progress Note-Medicine Service: Medicine Subjective Data: WERNER YEPEZ is a 35 year old Male who is Hospital Day # 2. some SOB no fever or chills or cough no n/v/d no bleeding. Objective Data: Objective Information: T PRBPSpO2 [id number]/7691% Date/Time05/06 2: 2: 2: 2: 2:58 Range(36.5C - 37.3C ) (85 - 96 ) (18 - 29 ) (123 - 137 )/ (76 - 83 ) (87% - 93% ) As of 05-May-2021 20:48:00, patient is on 4 L/min of oxygen via nasal cannula. Highest temp of 37.3 C was recorded at 05/05 20:46 Pain reported at 05/06 7:00: 0 = None Physical Exam Narrative: Physical Exam: Constitutional: Well developed, awake/alert/oriented x3, no distress, alert and cooperative Eyes: PERRL, EOMI, clear sclera ENMT: mucous membranes moist, no apparent injury, no lesions seen Head/Neck: Neck supple, no apparent injury, thyroid without mass or tenderness, No JVD, trachea midline, no bruits Respiratory/Thorax: aprsounds at bases b/l Cardiovascular: Regular, rate and rhythm, no murmurs, 2+ equal pulses of the extremities, normal S 1and S 2 Gastrointestinal: Nondistended, soft, non-tender, no rebound tenderness or guarding, no masses palpable, no organomegaly, +BS, no bruits Musculoskeletal: ROM intact, no joint swelling, normal strength Extremities: normal extremities, no cyanosis edema, contusions or wounds, no clubbing Neurological: alert and oriented x3, intact senses, motor, response and reflexes, normal strength Lymphatic: No significant lymphadenopathy Psychological: Appropriate mood and behavior Skin: Warm and dry, no lesions, no rashes Medication: Medications: Continuous Medications ------ No continuous medications are active Scheduled Medications ------ 1. Albuterol 2.5mg - Ipratropium 0.5 mg/ 3mL Neb Soln: 3 mL Inhalation Every 6 Hours 2. Azithromycin: 500 mg Oral Every 24 Hours 3. Budesonide 0.5 mg/ 2 mL Nebulizer Soln: 2 mL Inhalation Every 12 Hours 4. cefTRIAXone 1 gram/ Dextrose 5% IVPB Premixed Soln 50 mL: 50 mL IntraVenous Piggyback Every 24 Hours 5. Enoxaparin SubCutaneous: 80 mg SubCutaneous Every 12 Hours 6. methylPREDNISolone Sodium Succinate Injectable: 40 mg IntraVenous Push Every 6 Hours 7. Non-Formulary Medication: N-Acetylcysteine Capsule Dose = 600 mg Oral 2 Times a Day Clinician Notes: 1 capsule = 600 mg Please send 2 capsules for cart fill: 8. Remdesivir IntraVenous Infusion (for patients > = 40 kilograms): 100 mg IntraVenous Infusion Every 24 Hours PRN Medications ------ 1. Acetaminophen: 650 mg Oral Every 4 Hours 2. guaiFENesin Extended Release: 600 mg Oral Every 12 Hours 3. Ondansetron Injectable: 4 mg IntraVenous Push Every 4 Hours 4. Sodium Chloride 0.9% Injectable Flush: 10 mL IntraVenous Flush Every 8 Hours and as Needed 5. Sore Throat Lozenge: 1 lozenge(s) Oral Every 2 Hours Recent Lab Results: Results: CBC: 05/06/2021 07:14 \ Hgb / \ 14.3 / WBC Plt 7.3 261 / Hct \ / 42.2 \ RBC: 4.70 MCV: 90 CMP: 05/06/2021 07:14 NA+ Cl- BUN / 135 L 98 21 / ------ Glucose - 126 H K+ HCO3- Creat \ 3.7 26 0.87 \ \ T Bili / \ 0.6 / AST x ---- x ALT 25 x ---- x 23 / Alk P \ / 39 \ Calcium : 9.0 Anion Gap : 15 Albumin : 3.8 T Protein : 6.6 Assessment and Plan: Code Status: Code StatusFull Code Assessment: 35-year-old male presented with hypoxia from COVID-19 pneumonia as well possible community-acquired pneumonia Plan Duo nebs every 4 hours Symbicort inhaler twice daily Methylprednisolone 40 Mg IV every 6 hours Lovenox dosing as per d milly and to recheck am Ceftriaxone 1 g IV daily Azithromycin 500 mg daily procalcitonin low though Sputum cultures and blood cultures Antibiotics to cover bacterial pneumonia component Remdesivir IV to consider Wean oxygen as tolerated - 4 L currently Supportive care and symptomatic management Education counseling Cough suppressants, Tylenol for fever and antiemetics if needed Continuous cardiopulmonary monitoring and constant pulse ox ambulatory pulse ox Electronic Signatures: Viola Quezada) (Signed 07-May-2021 00:00) Authored: Service, Subjective Data, Objective Data, Assessment and Plan, Note Completion Last Updated: 07-May-2021 00:00 by Viola Quezada) Normal [facility] - Chemistry and C hemistry - challengeon 05-06-2021 Albumin BCP dye [Mass/Vol] 3.8 g/dL 3.4 - 5.0 [facility] Work Phone: ALT With P-5'-P [Catalytic activity/Vol] 23 U/L 10 - 52 [facility] Work Phone: Comment on above: Patients treated wit h Sulfasalazine may generate falsely decreased results for ALT. AST With P-5'-P [Catalytic activity/Vol] 25 U/L 9 - 39 [facility] Work Phone: CO2 [Moles/Vol] 26 mmol/L 21 - 32 [facility] Work Phone: Procalcitonin [Mass/Vol] 0.46 ng/mL Abnormal <=0.07 [facility] Work Phone: Comment on above: Procalcitonin (PCT) results measured serially can aid in decision-making for antibiotic discontinuation in patients with suspected or confirmed sepsis in conjunction with additional clinical information. Antibiotic discontinuation may be considered with a change in PCT of >80% from the peak result or when PCT falls below 0.50 ng/mL. .Procalcitonin results should not be used in isolation but should be interpreted in conjunction with additional clinical and laboratory findings. Procalcitonin results should not beused to guide the initiation of antibiotic therapy. .Falsely low PCT values in the presence of bacterial infection may occur in early infection, with atypical pathogens, localized infections, and subacute infectious endocarditis. .Falsely elevated results outside of severe bacterial infection/sepsis may be seen in patients with renal failure or insufficiency, severe trauma or vega, recent major abdominal/cardiac surgery, acute multi-organ failure, rarely in patients with medullary thyroid carcinoma and rare neuroendocrine tumors, and non-specific interfering antibodies (heterophile antibodies, rheumatoid factor, human anti-mouse antibodies (HAMA), etc). .Performance of the PCT test in pediatric patients (<18yo), women, immunocompromised patients, and patients onimmunomodulatory medications has not been evaluated. Laboratory - Hematology and Cell countson 05-06-2021 Erythrocyte distribution width (RBC) [Ratio] 12.4 % See Below [facility] Work Phone: Comment on above: Reference Range: 11. 5 - 14.5 Hematocrit (Bld) [Volume fraction] 42.2 % See Below [facility] Work Phone: Comment on above: Reference Range: 41. 0 - 52.0 Hemoglobin (Bld) [Mass/Vol] 14.3 g/dL See Below [facility] Work Phone: [phone] Comment on above: Reference Range: 13. 5 - 17.5 MCHC (RBC) [Mass/Vol] 33.8 g/dL See Below [facility] Work Phone: [phone] Comment on above: Reference Range: 32. 0 - 36.0 MCV (RBC) [Entitic vol] 90 fL 80 - 100 [facility] Work Phone: [phone] Platelets (Bld) [#/Vol] 261 10*3/uL 150 - 450 [facility] Work Phone: [phone] RBC (Bld) [#/Vol] 4.70 {x10E12/L} See Below [facility] Work Phone: [phone] Comment on above: Reference Range: 4.5 0 - 5.90 WBC (Bld) [#/Vol] 7.3 10*3/uL 4.4 - 11.3 [facility] Work Phone: No Panel Informationon 05-06 >60 >60 [facility] Work Phone: Comment on above: CALCULATIONS OF MARINA MATED GFR ARE PERFORMED USING THE MDRD STUDY EQUATION FOR THE IDMS-TRACEABLE CREATININE METHODS. CLIN CHEM 2007;53:766-72 PROCALCITONINon 05-06-2021 PROCALCITONIN 0.46 ng/mL Abnormal <=0.07 [facility] Comment on above: Result Comment: Proc alcitonin (PCT) results measured serially can aid in decision-making for antibiotic discontinuation in patients with suspected or confirmed sepsis in conjunction with additional clinical information. Antibiotic discontinuation may be considered with a change in PCT of >80% from the peak result or when PCT falls below 0.50 ng/mL. . Procalcitonin results should not be used in isolation but should be interpreted in conjunction with additional clinical and laboratory findings. Procalcitonin results should not be used to guide the initiation of antibiotic therapy. . Falsely low PCT values in the presence of bacterial infection may occur in early infection, with atypical pathogens, localized infections, and subacute infectious endocarditis. . Falsely elevated results outside of severe bacterial infection/sepsis may be seen in patients with renal failure or insufficiency, severe trauma or vega, recent major abdominal/cardiac surgery, acute multi-organ failure, rarely in patients with medullary thyroid carcinoma and rare neuroendocrine tumors, and non-specific interfering antibodies (heterophile antibodies, rheumatoid factor, human anti-mouse antibodies (HAMA), etc). . Performance of the PCT test in pediatric patients (<18yo), women, immunocompromised patients, and patients on immunomodulatory medications has not been evaluated. Performed By: #### B [facility] #### [facility] [address] [place] [address] Admission Risk Screen - Adul ton 05-05-2021 Admission Risk Screen - Adult Allergies: Allergies: ibuprofen: Unknown Patient Verification: New W ID Band Applied in my Departmentyes Patient Identity Verified Bypatient ID Band FULL Name, include Middle, spelling matches patient's ID used for verificationyes ID Band Matches Patient ID used for Verficationyes ID Band MRN Matches EMR MRNyes Visitor Restriction: Coronavirus Visitor Restriction: Reasonable restrictions to in-person visitors will be observed due to current coronavirus pandemic. Travel History: COVID-19 Screening CompletedCOVID positive within the last 13 days(1) Travel or Exposure Past 30 DaysNO travel to International locations in the past 30 days Ebola AlertFor Ebola-like Symptoms: Isolate Patient and Notify Provider/[place] For Contact: Notify Provider/[place] Advance Directive: Advance Directive/DNRno (2) Advance Directive Information Givenpatient/family declined [place] Fall Screen: History of falling (immediate or previous)no (0) Secondary Diagnosisno (0) Intravenous Therapy/ Heparin/Saline Lockyes (20) Gait/Transferringnormal/be drest/wheelchair (0) Ambulatory Aidsnone/bedrest/nurse assist (0) Mental Statusoriented to own ability (0) Score: Low risk (<25). Moderate risk (25-44). High risk (>44).20 [place] InterventionsLOW INTERVENTIONS: *patient oriented to surroundings and call system, * patient/family falls education completed and documented, *patients fall status communicated during bedside handoff, *whiteboard updated, *mode of toileting discussed with patient, *bed in low position with brakes locked, *call light in reach, * non-skid footwear Family Violence Screen: Are you or have you been threatened or abused physically, emotionally, or sexually by anyoneno Has anyone ever threatened to hurt your family or your petsno Does anyone try to keep you from having/contacting other friends or doing things outside your homeno Do you feel UNSAFE going back to the place where you are livingno Do you feel anyone has exploited or taken advantage of you financially or of your personal propertyno Clinical assessment: Are there any apparent signs of injuries/behaviors that could be related to abuse/neglectno Social Service Consult for abuse/neglect needed this visitno Functional Screen: Functional Screen: In the recent/past 2-4 weeks, patient or family have noticedno issues that require a speech/language consult at this time AM-PAC- Basic Mobility/Daily Activity: Patient baseline bedboundno Turning from your back to your side while in a flat bed without using bedrailsnone Moving from lying on your back to sitting on the side of a flat bed without using bedrailsnone Moving to and from bed to chair (including a wheelchair)none Standing up from a chair using your arms (e.g. wheelchair or bedside chair) none To walk in hospital roomnone Climbing 3-5 steps with railingnone Basic Mobility - Total Score24 Putting on and taking off regular lower body clothingnone Bathing (including washing, rinsing, drying)none Putting on and taking off regular upper body clothingnone Toileting, which includes using toilet, bedpan or urinalnone Taking care of personal grooming such as brushing teethnone Eating Mealsnone Daily Activity - Total Score24 Learning Assessment (Patient): Patient is Able to be Assessed for Learningyes Factors Influencing Readiness to Learnnone Factors that Impact Ability to Learnnone Devices/Methods Used to Communicatenone Learning Preferencesverbal instruction Cultural Considerationsnone Developmental Considerationsnone Taoism Considerationsnone Learning Assessment (Other Learner): Other learner availableno Depression Screen: During the past month, have you often been bothered by feeling down, depressed or hopelessno During the past month, have you often had little interest or pleasure in doing thingsno Have you had any thoughts of harming anyone elseno (1) [place] Suicide: Risk Screen Not Applicable/Able to Answerable to be screened In the Past Month: Have you wished you were or could go to sleep and not wake upno(1) In the Past Month: Have you had any actual thoughts of killing yourself no(1) Lifetime: Have you ever done, started to do, or prepared to do anything to end your lifeno [place] Suicide Risknegative Adult Nutrition Screen: Have you recently lost weight without tryingno Have you been eating poorly because of a decreased appetiteno Malnutrition Screening Tool Score0 Malnutrition Screening Tool RiskMST = 0 or 1 Not at risk. Eating well with little or no weight loss Nutrition Consult needed this visitno Can Patient Participate in Room Serviceyes Patient requires Paper Dishes/Plastic Utensilsyes (sends order) Pain Screen: Pain Scalenumerical 0-10 Pain Scale Educationteaching provided Current Pain Level0 = None Acceptab (more content not included)... Normal [facility] BASIC METABOLIC PANELon 12-0 Anion gap [Moles/Vol] 15 mmol/L Normal 10 - 20 [facility] Work Phone: Comment on above: Performed By: #### B MP #### [address] [address] Calcium [Mass/Vol] 9.0 mg/dL Normal 8.6 - 10.3 [facility] Work Phone: Comment on above: Performed By: #### B MP #### [address] [address] Chloride [Moles/Vol] 94 mmol/L Low 98 - 107 [facility] Work Phone: Comment on above: Performed By: #### B MP #### [address] [address] Creatinine [Mass/Vol] 1.00 mg/dL Normal 0.50 - 1.30 [facility] Work Phone: Comment on above: Reference Range: 0.5 0 - 1.30 Performed By: #### B MP #### [address] [address] GFR- AM. >60 Normal >60 [facility] Comment on above: Result Comment: CALC ULATIONS OF ESTIMATED GFR ARE PERFORMED USING THE MDRD STUDY EQUATION FOR THE IDMS-TRACEABLE CREATININE METHODS. CLIN CHEM 2007;53:766-72 Performed By: #### B MP #### [address] [address] GFR-NON AM. >60 Normal >60 [facility] Comment on above: Performed By: #### B MP #### [address] [address] Glucose [Mass/Vol] 122 mg/dL High 74 - 99 [facility] Work Phone: Comment on above: Performed By: #### B MP #### [address] [address] HCO3 (Bld) [Moles/Vol] 26 mmol/L Normal 21 - 32 [facility] Comment on above: Performed By: #### B MP #### [address] [address] Potassium [Moles/Vol] 3.9 mmol/L Normal 3.5 - 5.3 [facility] Work Phone: Comment on above: Performed By: #### B MP #### [address] [address] Sodium [Moles/Vol] 131 mmol/L Low 136 - 145 [facility] Work Phone: Comment on above: Performed By: #### B MP #### [address] [address] Urea nitrogen [Mass/Vol] 20 mg/dL Normal 6 - 23 [facility] Work Phone: Comment on above: Performed By: #### B MP #### [address] [address] BLOOD CULTURE, BACTERIALon 1 07-06-2020 BLOOD CULTURE, BACTERIAL Called- RB to GEREMIAS CUADRA., 05/06/2021 19:06 Called- RB to GEREMIAS CUADRA., 05/06/2021 19:06 PATIENT: WERNER YEPEZ LOCATION: [address]#: [id number] : 87 AGE: SEX: M ORDERED BY: JOE IZAGUIRRE SOURCE: Blood COLLECTED: 05/05/21 05:58 ANTIBIOTICS AT [facility].: RECEIVED : 05/05/21 12:22 SITE: ANTECUBITAL R E S U L T S BLOOD CULTURE, BACTERIAL FINAL 05/07/21 14:00 No Growth at 1 days ISOLATE1 : Micrococcus luteus AEROBIC VIAL POSITIVE Isolation of common skin bacteria from a single blood culture usually indicates contamination from the venipuncture. Normal [facility] Comment on above: Performed By: #### B [facility] #### [facility] [address] [place] [address] C Reactive Protein, Serumon 05-05-2021 CRP [Mass/Vol] 5.44 mg/dL Abnormal [facility] Work Phone: Comment on above: REF VALUE< 1.00 C-REACTIVE PROTEINon 021 C-REACTIVE PROTEIN 5.44 mg/dL Abnormal [facility] Comment on above: Result Comment: REF VALUE < 1.00 Performed By: #### C RP ####[place] [address] CBC AND DIFFERENTIALon 05-05 DIFFERENTIAL SEE MANUAL DIFF Normal [facility] Comment on above: Performed By: #### C BCDF #### [place] [address] NUCLEATED RBC 0.1 /100 WBC Normal [facility] Comment on above: Performed By: #### C BCDF #### [place] [address] RBC 5.04 x10E12/L Normal 4.50 - 5.90 [facility] Comment on above: Performed By: #### C BCDF #### [place] [id number] CHEST 1 VIEWon 05-05-2021 CHEST 1 VIEW Patient Name: WERNER YEPEZ STUDY: CHEST 1 VIEW; 05/05/2021 3:10 am INDICATION: Chest Pain . COMPARISON: None. ACCESSION NUMBER(S): [id number] ORDERING CLINICIAN: JOE IZAGUIRRE FINDINGS: Multiple overlying leads are present. CARDIOMEDIASTINAL SILHOUETTE: Cardiomediastinal silhouette is normal in size and configuration. LUNGS: There are bilateral peripheral reticular and patchy airspace opacities consistent with multifocal COVID-19 pneumonia. No sizeable effusion or pneumothorax. ABDOMEN: No remarkable upper abdominal findings. BONES: No acute osseous abnormality. IMPRESSION: There are bilateral peripheral reticular and patchy airspace opacities consistent with multifocal COVID-19 pneumonia. Continued radiographic follow-up to resolution is advised. Electronically signed by: KAMI COLMENARES MD Normal [facility] CORONAVIRUS 2019 BY PCRon SARS-CoV-2 (COVID-19) RNA SHERRILL+probe Ql (Unsp spec) Detected Abnormal Not Detected [facility] Comment on above: Order Comment: Call not indicated, 05/06/2021 00:40 Result Comment: . This test has received FDA Emergency Use Authorization (EUA) and has been verified by [facility]. This test is only authorized for the duration of time that circumstances exist to justify the authorization of the emergency use of in vitro diagnostic tests for the detection of SARS-CoV-2 virus and/or diagnosis of COVID-19 infection under section 564(b)(1) of the Act, 21 U.S.C. 360bbb-3(b)(1), unless the authorization is terminated or revoked sooner. [facility] is certified under CLIA-88 as qualified to perform high complexity testing. Testing is performed in the [facility] laboratory located at [address] [place] [address]. SARS-CoV-2/Flu/RSV Multiplex Test: Fact sheet for providers: https://www.fda.gov/media/811983/download Fact sheet for patients: https://www.fda.gov/media/290989/download Call not indicated, 05/06/2021 00:40 Performed By: #### C OV19 ####[place] [address] DATE OF SYMPTOM ONSET [[id number]]? [id number] [facility] Comment on above: Order Comment: Call not indicated, 05/06/2021 00:40 Performed By: #### C OV19 ####[place] [address] Lab Specimen Source Nasal, Nasopharyngeal [facility] Comment on above: Order Comment: Call not indicated, 05/06/2021 00:40 Performed By: #### C OV19 ####[place] [address] [address] ANGIO CHEST FOR PE Patient Name: WERNER YEPEZ STUDY: CT ANGIO CHEST FOR PE; 05/05/2021 3:58 am INDICATION: SOB/covid/factor V . COMPARISON: None. ACCESSION NUMBER(S): [id number] ORDERING CLINICIAN: JOE IZAGUIRRE TECHNIQUE: Helical data acquisition of the chest was obtained following IV administration 90 cc Omnipaque 350. Images were reformatted in coronal and sagittal planes. Axial and coronal MIP images were created and reviewed. FINDINGS: POTENTIAL LIMITATIONS OF THE STUDY: Respiratory motion artifact. Suboptimal IV contrast enhancement of pulmonary arteries. HEART AND VESSELS: No pulmonary embolus to the proximal segmental level. Evaluation more distally is limited. Main pulmonary artery and its branches are normal in caliber. The thoracic aorta is of normal course and caliber without vascular calcifications. No coronary artery calcifications are seen.The study is not optimized for evaluation of coronary arteries. The cardiac chambers are not enlarged. No evidence of pericardial effusion. MEDIASTINUM AND YOLI, LOWER NECK AND AXILLA: The visualized thyroid gland is within normal limits. No evidence of thoracic lymphadenopathy by CT criteria. Esophagus appears within normal limits as seen. LUNGS AND AIRWAYS: The trachea and central airways are patent. No endobronchial lesion. There are bilateral patchy and confluent ground-glass opacities compatible with multifocal COVID-19 pneumonia. There are patchy consolidative opacities with some volume loss also present in the lower lobes, that could relate to pneumonia, including bacterial superinfection, versus atelectasis or developing fibrosis. No pleural effusion or pneumothorax. UPPER ABDOMEN: The visualized subdiaphragmatic structures demonstrate no remarkable findings. CHEST WALL AND OSSEOUS STRUCTURES: Minor symmetric gynecomastia. Otherwise within normal limits. IMPRESSION: No pulmonary embolus to the proximal segmental level; evaluation more distally is limited. There are bilateral patchy and confluent ground-glass opacities compatible with multifocal COVID-19 pneumonia. There are patchy consolidative opacities with some volume loss also present in the lower lobes, that could relate to pneumonia, including bacterial superinfection, versus atelectasis or developing fibrosis. No pleural effusion or pneumothorax. Additional findings as discussed above. Electronically signed by: CESAR LAWLER MD [facility] Complete Blood Count + Diffe [email or web address] 05-05-2021 Erythrocyte distribution width (RBC) [Ratio] 12.5 % Normal 11.5 - 14.5 [facility] Work Phone: Comment on above: Reference Range: 11. 5 - 14.5 Performed By: #### C BCDF #### [place] [address] Hematocrit (Bld) [Volume fraction] 45.0 % Normal 41.0 - 52.0 [facility] Work Phone: [phone] Comment on above: Reference Range: 41. 0 - 52.0 Performed By: #### C BCDF #### [address] [address] Hemoglobin (Bld) [Mass/Vol] 15.3 g/dL Normal 13.5 - 17.5 [facility] Work Phone: [phone] Comment on above: Reference Range: 13. 5 - 17.5 Performed By: #### C BCDF #### [address] [address] MCHC (RBC) [Mass/Vol] 33.9 g/dL Normal 32.0 - 36.0 [facility] Work Phone: [phone] Comment on above: Reference Range: 32. 0 - 36.0 Performed By: #### C BCDF #### [address] [address] MCV (RBC) [Entitic vol] 89 fL Normal 80 - 100 [facility] Work Phone: [phone] Comment on above: Performed By: #### C BCDF #### [address] [address] Platelets (Bld) [#/Vol] 218 10*3/uL Normal 150 - 450 [facility] Work Phone: [phone] Comment on above: Performed By: #### C BCDF #### [address] [address] WBC (Bld) [#/Vol] 10.2 10*3/uL Normal 4.4 - 11.3 [facility] Work Phone: [phone] Comment on above: Performed By: #### C BCDF #### [address] [address] RBC (Bld) [#/Vol] 5.04 {x10E12/L} See Below [facility] Work Phone: Comment on above: Reference Range: 4.5 0 - 5.90 Complete Blood Count + Differential SEE MANUAL DIFF [facility] Work Phone: Complete Blood Count + Differential 0.1 {/100_WBC} [facility] Work Phone: Consult-Critical Careon 12-0 Consult-Critical Care Service: Service: Critical Care Consult: Consult requested by (Attending Name): Viola Quezada Reason: hyoxia with COVID History of Present Illness: HPI: WERNER YEPEZ is a 35 year old Male He presented to the emergency room secondary to cough with sputum production and shortness of breath. He was diagnosed with Covid pneumonia about a week ago. 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 he is having cough with some slight sputum production He does feel globally not well A full 10 point review of systems was obtained is negative except HPI as above Review Family/Social History and ROS: Social History: Smoking Status: never smoker (1) Alcohol Use: denies(1) Drug Use: denies (1) Drug 2 Use: denies (1) Allergies: ibuprofen: Unknown Objective: Objective Information: T PRBPSpO2 [id number]/8494% Date/Time05/05 7: 7: 7: 7: 7:54 Range(37.4C - 38.1C ) (108 - 120 ) (20 - 35 ) (128 - 137 )/ (84 - 91 ) (87% - 95% ) As of 05-May-2021 05:00:00, patient is on 2 L/min of oxygen via nasal cannula. Highest temp of 38.1 C was recorded at 05/05 2:45 Physical Exam by System: Constitutional: Awake, alert, oriented, no acute distress Eyes: extraocular muscles intact ENMT: moist mucous membranes Nasal cannula in place Head/Neck: normocephalic, atraumatic Respiratory/Thorax: bilateral equal breath sounds Positive cough with positive rales Cardiovascular: regular rhythm, slightly tachycardic Gastrointestinal: soft, nontender, nondistended Musculoskeletal: moving all extremities Extremities: no peripheral edema Neurological: awake, alert, oriented Psychological: cooperative Skin: warm and dry Medications: Medications: Continuous Medications ------ No continuous medications are active Scheduled Medications ------ 1. Albuterol 2.5mg - Ipratropium 0.5 mg/ 3mL Neb Soln: 3 mL Inhalation Every 6 Hours 2. Azithromycin: 500 mg Oral Every 24 Hours 3. Budesonide 0.5 mg/ 2 mL Nebulizer Soln: 2 mL Inhalation Every 12 Hours 4. cefTRIAXone 1 gram/ Dextrose 5% IVPB Premixed Soln 50 mL: 50 mL IntraVenous Piggyback Every 24 Hours 5. Enoxaparin SubCutaneous: 80 mg SubCutaneous Every 12 Hours 6. methylPREDNISolone Sodium Succinate Injectable: 40 mg IntraVenous Push Every 6 Hours 7. Remdesivir IntraVenous Infusion (for patients > = 40 kilograms): 200 mg IntraVenous Infusion Once PRN Medications ------ 1. Acetaminophen: 650 mg Oral Every 4 Hours 2. guaiFENesin Extended Release: 600 mg Oral Every 12 Hours 3. Ondansetron Injectable: 4 mg IntraVenous Push Every 4 Hours 4. Sodium Chloride 0.9% Injectable Flush: 10 mL IntraVenous Flush Every 8 Hours and as Needed 5. Sore Throat Lozenge: 1 lozenge(s) Oral Every 2 Hours Recent Lab Results: Results: I have reviewed these laboratory results: D-Dimer, Non VTE [Drawn 05-May-2021 07:30:00], C Reactive Protein, Serum [Drawn 05-May-2021 07:30:00], Lactate, Level [Drawn 05-May-2021 05:58:00], Complete Blood Count + Differential [Drawn 05-May-2021 03:00:00], Basic Metabolic Panel [Drawn 05-May-2021 03:00:00]. Radiology Results: Results: CT Angio Chest for PE [May 05 2021 4:23AM] Assessment: COVID-19 pneumonia: Severe Acute hypoxemic respiratory failure Global weakness Cough Bilateral pulmonary infiltrates Hyponatremia Elevated inflammatory markers Factor V Leiden deficiency History of leukemia Plan: At this time he is on Zithromax and Rocephin day 1 We will follow a pro calcitonin level We will follow respiratory cultures He is on Lovenox 80 mg twice per day He is on IV steroids He is on breathing treatments He is on Remdesivir day 1 At this time we will continue his medical regimen as he is on We will follow a pro calcitonin level I will add oral N-acetylcysteine for him We will follow his sodium level closely Thanks for the consult Consult Status: Consult Order ID: [id number] Electronic Signatures: Osmany Marie () (Signed 05-May-2021 10:28) Authored: Service, History of Present Illness, Review Family/Social History and ROS, Allergies, Objective, Assessment/Recommendations , Note Completion Last Updated: 05-May-2021 10:28 by Osmany Marie () References: 1. Data Referenced From Patient Profile - Adult v2 05-May-2021 09:35 Normal [facility] Coronavirus 2019 RNA by PCR, Symptomaticon 05-05-2021 Date and time of symptom onset [id number] [facility] Work Phone: Coronavirus 2019 RNA by PCR, Symptomatic Detected Abnormal See Below [facility] Work Phone: Comment on above: SOURCE: Nasal, Nasop haryngealReference Range: Not Detected.This test has received FDA Emergency Use Authorization (EUA) and has been verified by [facility]. This test is only authorized for the duration of time that circumstances exist to justify the authorization of the emergency use of in vitro diagnostic tests for the detection of SARS-CoV-2 virus and/or diagnosis of COVID-19 infection under section 564(b)(1) of the Act, 21 U.S.C. 360bbb-3(b)(1), unless the authorization is terminated or revoked sooner. [facility] is certified under CLIA-88 as qualified to perform high complexity testing. Testing is performed in the [facility] laboratory located at [address] [place] [address].SARS-CoV-2/Flu/RSV Multiplex Test: Fact sheet for providers: https://www.fda.gov/media/879554/downloadFact sheet for patients: https://www.fda.gov/media/345675/downloadCall not indicated, 05/06/2021 00:40 Covid 19 Resultson 1 SARS-CoV-2 (COVID-19) RNA SHERRILL+probe Ql (Unsp spec) POSITIVE COVID-19 Test Coronaviruses are common world-wide and are the cause of many common colds. SARS-COV2 is a new coronavirus that began circulating worldwide in 2019 so we are calling it COVID-19. It has been estimated that four out of five patients with COVID-19 will recover at home without the need for medical attention. Symptoms of COVID-19 may include cough, fever, shortness of breath, loss of taste or smell and other flu-like symptoms including chills, sore muscles, sore throat, and headache. Severe illness is more common in older people and people with other health problems such as high blood pressure, obesity, and immune system problems. If the test is positive, you have COVID-19. You will be contacted by the ordering physicians office and instructed to remain on home isolation, in accordance with CDC guidelines. You may also be contacted by the [facility] to see if any of your close contacts may have been exposed to the virus and need to quarantine. If the test is negative, you likely do not have COVID-19 at this time, but you still may have a different illness that can spread to other people (like Influenza, or the Flu) and could still be at risk for getting COVID-19. We recommend that you stay away from other people to limit the spread of illness until your symptoms are improving and you are fever-free for 24 hours without the use of fever lowering medications such as acetaminophen or ibuprofen. No test is 100% accurate so if you are still concerned you may have COVID-19, talk to your doctor about the need to continue to stay away from others. Medicines Unless your provider told you not to use the following: Acetaminophen (Tylenol and others) is generally safe. Anti-inflammatory medications, such as Ibuprofen (Advil or Motrin) or Naproxen (Aleve) can also be used. Gezj-eqe-fzghmfu cough and cold medicines can be used according to the instructions on the package. Some yuqj-dnf-kncvupr medicines also contain acetaminophen. Make sure you are not taking more than your recommended dose. For those not hospitalized, there is no specific treatment available for this illness. Antibiotics do not treat Coronaviruses. Follow-Up Follow up with your doctor by scheduling a virtual visit or consider follow-up at one of our urgent care fever clinics. If you are having difficulty breathing, or are very weak and having difficulty standing, this is a medical emergency. Call 911 or have someone take you to the nearest emergency room immediately. If possible, wear a facemask. Additional guidance from the CDC for patients who tested POSITIVE for COVID-19 How to isolate: Isolate yourself in a specific room at home and limit your contact with others. Use a separate bathroom from other members of the household, when possible. Leave home only to get essential medical care. Do not go to work, school or public areas. Avoid using public transportation, ride-sharing, or taxis. Restrict contact with pets and other animals. If you must care for your pet or be around animals while you are sick, wash your hands before and after your interaction and wear a facemask. Make sure that shared spaces in the home have good airflow, such as by an air conditioner or an opened window, weather permitting. Personal Hygiene Procedures: Wear a face mask when in the same room as other people or pets. If a face mask interferes with your breathing, others should wear a mask when sharing space with you. Frequent hand-washing: wash your hands with soap and water for at least 20 seconds. If soap and water are not available, use alcohol-based hand peoplesoft hrms developer. Avoid touching your eyes, nose, and mouth with unwashed hands. Household Hygiene Procedures: Avoid sharing personal household items such as dishes, glassware, cups, eating utensils, towels or bedding with other people or pets in your home. After use, these items should be washed with soap and hot water. Disinfect all high-touch surfaces every day with antibacterial cleaning solutions such as Lysol wipes, bleach, cleansers, etc. High-touch surfaces include tabletops, doorknobs, bathroom fixtures, toilets, phones, keyboards, tablets and bedside tables. Immediately clean any surfaces that may have blood, poop or body fluids on them, using antibacterial cleaning solutions such as Lysol wipes, bleach, cleansers, etc. If clothing or bedding come into contact with blood, poop or body fluids, they should be washed immediately. Follow the directions on the laundry detergent and clothing labels but hot water is recommended when possible. Stopping home isolation precautions: If possible, consult your doctor before stopping home isolation precautions. According to the CDC, you can discontinue home isolation precautions when you have met both of these criteria: Your fever and respiratory symptoms have been gone for 24 christiane (more content not included)... Normal [facility] Cult, Bloodon 05-05-2021 Bacteria identified Cx Nom (Bld) Abnormal [facility] Work Phone: D-DIMER, NON VTEon 1 D-DIMER, NON VTE 1179 ng/mL FEU Abnormal = 500 [facility] Comment on above: Result Comment: THE D-DIMER ASSAY IS REPORTED IN NG/ML FIBRINOGEN EQUIVALENT UNITS (FEU). THE RESULTS OF THIS ASSAY SHOULD NOT BE USED FOR THE EXCLUSION OF DEEP VEIN THROMBOSIS AND/OR PULMONARY EMBOLISM. Performed By: #### D HIMA #### [facility] [address] [place] [address] LACTATEon 05-05-2021 Lactate [Moles/Vol] 0.5 mmol/L Normal 0.4 - 2.0 [facility] Comment on above: Result Comment: Rosa puncture immediately after or during the administration of Metamizole may lead to falsely low results. Testing should be performed immediately prior to Metamizole dosing. Performed By: #### B LDC #### [facility] [address] [place] [address] Laboratory - Chemistry and C hemistry - challengeon 05-05-2021 Procalcitonin [Mass/Vol] 0.18 ng/mL Abnormal <=0.07 [facility] Work Phone: Comment on above: Procalcitonin (PCT) results measured serially can aid in decision-making for antibiotic discontinuation in patients with suspected or confirmed sepsis in conjunction with additional clinical information. Antibiotic discontinuation may be considered with a change in PCT of >80% from the peak result or when PCT falls below 0.50 ng/mL. .Procalcitonin results should not be used in isolation but should be interpreted in conjunction with additional clinical and laboratory findings. Procalcitonin results should not beused to guide the initiation of antibiotic therapy. .Falsely low PCT values in the presence of bacterial infection may occur in early infection, with atypical pathogens, localized infections, and subacute infectious endocarditis. .Falsely elevated results outside of severe bacterial infection/sepsis may be seen in patients with renal failure or insufficiency, severe trauma or vega, recent major abdominal/cardiac surgery, acute multi-organ failure, rarely in patients with medullary thyroid carcinoma and rare neuroendocrine tumors, and non-specific interfering antibodies (heterophile antibodies, rheumatoid factor, human anti-mouse antibodies (HAMA), etc). .Performance of the PCT test in pediatric patients (<18yo), women, immunocompromised patients, and patients onimmunomodulatory medications has not been evaluated. CO2 [Moles/Vol] 26 mmol/L 21 - 32 [facility] Work Phone: Laboratory - Coagulationon 1 07-06-2020 Fibrin D-dimer DDU (PPP) [Mass/Vol] 1179 {ng/mL_FEU} Abnormal = 500 [facility] Work Phone: Comment on above: THE D-DIMER ASSAY IS REPORTED IN NG/ML FIBRINOGEN EQUIVALENT UNITS (FEU). THE RESULTS OF THIS ASSAY SHOULD NOT BE USED FOR THE EXCLUSION OF DEEP VEIN THROMBOSIS AND/OR PULMONARY EMBOLISM. Laboratory - Hematology and Cell countson 05-05-2021 Band form neutrophils/100 WBC (Bld) 1.0 % 0.0 - 5.0 [facility] Work Phone: Basophils/100 WBC (Bld) 0.0 % 0.0 - 2.0 [facility] Work Phone: Lymphocytes/100 WBC (Bld) 2.0 % See Below [facility] Work Phone: Comment on above: Reference Range: 13. 0 - 44.0 Monocytes/100 WBC (Bld) 5.0 % 2.0 - 10.0 [facility] Work Phone: Lactate, Levelon 05-05-2021 Lactate [Moles/Vol] 0.5 mmol/L 0.4 - 2.0 [facility] Work Phone: Comment on above: Venipuncture immedia tely after or during the administration of Metamizole may lead to falsely low results. Testing should be performed immediately prior to Metamizole dosing. MANUAL DIFFERENTIALon 2020 % BAND NEUTROPHIL 1.0 % Normal 0.0 - 5.0 [facility] Comment on above: Performed By: #### M DIFF ####[address] [address] % BASOPHIL 0.0 % Normal 0.0 - 2.0 [facility] Comment on above: Performed By: #### M DIFF ####[address] [address] % EOSINOPHIL 0.0 % Normal 0.0 - 6.0 [facility] Comment on above: Performed By: #### M DIFF ####[address] [address] % LYMPHOCYTE 2.0 % Normal 13.0 - 44.0 [facility] Comment on above: Performed By: #### M DIFF ####[address] [address] % MONOCYTE 5.0 % Normal 2.0 - 10.0 [facility] Comment on above: Performed By: #### M DIFF ####[address] [address] % SEG NEUTROPHIL 92.0 % Normal 40.0 - 80.0 [facility] Comment on above: Result Comment: Perc ent differential counts (%) should be interpreted in the context of the absolute cell counts (cells/L). Performed By: #### M DIFF ####[place] [id number] ANC 9.48 x10E9/L High 1.20 - 7.70 [facility] Comment on above: Performed By: #### M DIFF ####[place] [id number] BAND NEUTROPHIL 0.10 x10E9/L Normal 0.00 - 0.70 [facility] Comment on above: Performed By: #### M DIFF ####[place] [address] BASOPHIL 0.00 x10E9/L Normal 0.00 - 0.10 [facility] Comment on above: Performed By: #### M DIFF ####[place] [address] EOSINOPHIL 0.00 x10E9/L Normal 0.00 - 0.70 [facility] Comment on above: Performed By: #### M DIFF ####[place] [address] LYMPHOCYTE 0.20 x10E9/L Low 1.20 - 4.80 [facility] Comment on above: Performed By: #### M DIFF ####[place] [id number] MONOCYTE 0.51 x10E9/L Normal 0.10 - 1.00 [facility] Comment on above: Performed By: #### M DIFF ####[place] [address] SEG NEUTROPHIL 9.38 x10E9/L High 1.20 - 7.00 [facility] Comment on above: Performed By: #### M DIFF ####[place] [address] No Panel Informationon 05-05 0.00 {x10E9/L} See Below [facility] Work Phone: Comment on above: Reference Range: 0.0 0 - 0.10 Reference Range: 0.0 0 - 0.70 0.51 {x10E9/L} See Below [facility] Work Phone: Comment on above: Reference Range: 0.1 0 - 1.00 0.20 {x10E9/L} below low threshold See Below [facility] Work Phone: Comment on above: Reference Range: 1.2 0 - 4.80 0.10 {x10E9/L} See Below [facility] Work Phone: Comment on above: Reference Range: 0.0 0 - 0.70 9.38 {x10E9/L} above high threshold See Below [facility] Work Phone: Comment on above: Reference Range: 1.2 0 - 7.00 9.48 {x10E9/L} above high threshold See Below [facility] Work Phone: Comment on above: Reference Range: 1.2 0 - 7.70 0.0 % 0.0 - 6.0 [facility] Work Phone: 92.0 % See Below [facility] Work Phone: Comment on above: Reference Range: 40. 0 - 80.0 Percent differential counts (%) should be interpreted in the context of the absolute cell counts (cells/L). >60 >60 [facility] Work Phone: Comment on above: CALCULATIONS OF MARINA MATED GFR ARE PERFORMED USING THE MDRD STUDY EQUATION FOR THE IDMS-TRACEABLE CREATININE METHODS. CLIN CHEM 2007;53:766-72 NORMAL [facility] Work Phone: [email or web address] [email or web address] [email or web address]?Danyelle ypsSJ=[id number]&Date=11-09&Time=02%3a30%3a13%3a 00&TestType=ECG&Site=14&Ou tputType=PDF&Ext=PDF [facility] Work Phone: [phone] Please see physicia n note for formal interpretation confirmed by Cammieibe [facility] Work Phone: [phone] 1 [facility] Work Phone: [phone] [facility] Work Phone: [phone] [facility] Work Phone: [phone] 1 [facility] Work Phone: [phone] [facility] Work Phone: [phone] 1 [facility] Work Phone: [phone] 1 [facility] Work Phone: [phone] 1 [facility] Work Phone: [phone] 1 [facility] Work Phone: [phone] 1 [facility] Work Phone: [phone] [facility] Work Phone: [phone] [facility] Work Phone: [phone] [facility] Work Phone: [phone] PROCALCITONINon 05-05-2021 PROCALCITONIN 0.18 ng/mL Abnormal <=0.07 [facility] Comment on above: Result Comment: Proc alcitonin (PCT) results measured serially can aid in decision-making for antibiotic discontinuation in patients with suspected or confirmed sepsis in conjunction with additional clinical information. Antibiotic discontinuation may be considered with a change in PCT of >80% from the peak result or when PCT falls below 0.50 ng/mL. . Procalcitonin results should not be used in isolation but should be interpreted in conjunction with additional clinical and laboratory findings. Procalcitonin results should not be used to guide the initiation of antibiotic therapy. . Falsely low PCT values in the presence of bacterial infection may occur in early infection, with atypical pathogens, localized infections, and subacute infectious endocarditis. . Falsely elevated results outside of severe bacterial infection/sepsis may be seen in patients with renal failure or insufficiency, severe trauma or vega, recent major abdominal/cardiac surgery, acute multi-organ failure, rarely in patients with medullary thyroid carcinoma and rare neuroendocrine tumors, and non-specific interfering antibodies (heterophile antibodies, rheumatoid factor, human anti-mouse antibodies (HAMA), etc). . Performance of the PCT test in pediatric patients (<18yo), women, immunocompromised patients, and patients on immunomodulatory medications has not been evaluated. Performed By: #### P CALC ####[id number] [place], [place] [id number] Patient Profile - Adult v2on 05-05-2021 Patient Profile - Adult v2 Profile: Initial Info: How to be AddressedJared Spoken Language PreferredEnglish (1) Source of Informationpatient Stated Reason for Admissionsob Primary Contact Name and Numbergidgvikas yepez Other Contact Names and [phone] Wants Family/Rep Notified of Admissionn/a; family present Notify PCPnotify PCP Informed of Patient Visiting [facility]yes [facility] in Past 90 Daysnone Patient Belongingsremains with patient Patient Belongings Remaining with Patientpurse/wallet; cell phone/electronics Medications Brought to Hospitalno General Health: Weight in kg107.3 kilogram(s)(2) Weight in idn337.5 pound(s) Weight Methodactual (measured) Scale Typebed Height in cm180.3 centimeter(s) Height in feet5 feet(2) Height in ekaxnw16 inch(es)(2) Height Methodstated BMI (kg/m2)33.007 square meter [facility] Based Care: How would you like to participate in your careto be involved What is the number one concern for you during this hospitalizationbreathing beter What is the most important thing we can do to support you during this hospitalizationnothing Is there anything we need to know to best care for younothing Substance: Smoking Statusnever smoker (3) Alcohol Usedenies(3) Drug Usedenies (3) Drug 2 Usedenies (3) Health Mgmt: Symptoms/Conditions Managed at H[facility]one Relationship/Environ: Resource/Environmental Concernsfinancial Financial Concernsinsurance, none Primary Source of Support/Comfortparent Lives Withalone Living Arrangementsapartment Services Anticipated at Transitionnone [facility] Significant IndicatorsComplete Information Review: Allergies, Home Meds and Significant Events have been Reviewed and Verified with Patient/Familyyes ALLERGY, INTOLERANCE, ADVERSE EVENT: Allergies: ibuprofen: Drug, Unknown, Active Electronic Signatures: Paty Posadas (RN) (Signed 05-May-2021 09:42) Authored: Initial Info, General Health, RSP Based Care, Substance, Health Mgmt, Relationship/Environ, Additional Information Last Updated: 05-May-2021 09:42 by Paty Posadas (GEREMIAS) References: 1. Data Referenced From Triage - ED 05-May-2021 02:45 2. Data Referenced From 1. Vital Signs 05-May-2021 02:45 3. Data Referenced From History and Physical 05-May-2021 07:59 Normal [facility] Provider Note - ED v3on 12-0 Provider Note - ED v3 Provider Note: Chart Review: ED NOTES ED NOTES: HPI: Patient is a 35-year-old male chief complaint of shortness of breath. He was diagnosed with Covid 1 week ago.. He started having a cough symptoms the Wednesday before last after Thanksgiving which was greater than 10 days ago. He finished a series of Zithromax and steroids. He is not vaccinated for COVID-19. Denies any chest pain or radiating symptoms. No abdominal pain. No neurologic complaints. ROS: All systems are negative other than as noted in HPI. Physical Exam I have reviewed the triage vital signs. Const: Well nourished, well developed, appears stated age, no acute distress Eyes: PERRL, EOM intact, no conjunctival injection, vision grossly normal HENT: Neck supple without meningismus , Moist mucous membranes, no pharyengeal swelling or exudate CV: Tachycardia, Warm, well-perfused extremities. Chest non tender RESP: Harsh crackles and rales bilateral bases GI: soft, non-tender, non-distended, no masses : MSK: No gross deformities appreciated Skin: Warm, dry. No rashes Neuro: Alert and oriented x4, GCS 15 , carpet winder II-XII grossly intact. Sensation and motor function of extremities grossly intact. Psych: Appropriate mood and affect. HISTORY OF PRESENTING ILLNESS WERNER is a 35 year old Male and was seen by me at 05-May-2021 02:25 for a chief complaint of shortness of breath (Pt complaint of shortness of breath and cough starting 04/25. Pt seen at Urgent Care and given zithromax and steroids. Family states patient tested positive with home kit on 04/29.)(1). Triage Information: Most recent Vital Sign Value Date Temp (F): 100.6 05-05-2021 02:45 Temp (C): 38.1 05-05-2021 02:45 Heart Rate (beats/min): 120 05-05-2021 02:45 Respirations (breaths/min): 20 05-05-2021 02:45 SpO2 (%): 87 05-05-2021 02:45 BP Systolic (mm Hg): 132 05-05-2021 02:45 BP Diastolic (mm Hg): 91 05-05-2021 02:45 PAST MEDICAL HISTORY ALLERGIES/INTOLERANCES: Allergy Allergen: ibuprofen Type: Drug Reaction: Unknown HEALTH HISTORY: No documented data. OUTPATIENT MEDICATIONS: Home Medications Review Status for Reconciliation: N/A Med Status: N/A No documented data. SIGNIFICANT EVENTS: No documented data. CRITICAL CARE RESULTS: Recent Lab Results: I have reviewed these laboratory results: Complete Blood Count + Differential 05-May-2021 03:00:00 ResultValue White Blood Cell Count 10.2 Nucleated Erythrocyte Count 0.1 Red Blood Cell Count 5.04 HGB 15.3 HCT 45.0 MCV 89 MCHC 33.9 PLT 218 RDW-CV 12.5 Differential Comment SEE MANUAL DIFF Basic Metabolic Panel 05-May-2021 03:00:00 ResultValue Glucose, Serum 122 H NA 131 L K 3.9 CL 94 L Bicarbonate, Serum 26 Anion Gap, Serum 15 BUN 20 CREAT 1.00 GFR-Non >60 GFR- >60 Calcium, Serum 9.0 RBC Morphology 05-May-2021 03:00:00 ResultValue Red Blood Cell Morphology NORMAL Manual Differential Panel 05-May-2021 03:00:00 ResultValue % Seg Neutrophil 92.0 % Band Neutrophil 1.0 % Lymphocyte 2.0 % Monocyte 5.0 % Eosinophil 0.0 % Basophil 0.0 Absolute Neutrophil Count (ANC) 9.48 H Seg Neutrophil Count 9.38 H Band Neutrophil Count 0.10 Lymphocyte, Count 0.20 L Monocyte, Count 0.51 Eosinophil, Count 0.00 Basophil, Count 0.00 Radiology Results: Impression: No pulmonary embolus to the proximal segmental level; evaluation more distally is limited. There are bilateral patchy and confluent ground-glass opacities compatible with multifocalCOVID-19 pneumonia. There are patchy consolidative opacities with some volume loss also present in the lower lobes, that could relate to pneumonia, including bacterial superinfection, versus atelectasis or developing fibrosis. No pleural effusionor pneumothorax. Additional findings as discussed above. TH CT Angio Chest for PE [May 05 2021 4:23AM] Impression: There are bilateral peripheral reticular and patchy airspace opacities consistent with multifocal COVID-19 pneumonia. Continued radiographic follow-up to resolution is advised. Xray Chest 1 View [May 05 2021 3:16AM] VITAL SIGNS: T PRBP SpO2O2(LPM) %FiO2 Method 05-May-2021 04:00:[id number] 95 supplemental O2 05-May-2021 03:00:[id number] 95 supplemental O2 05-May-2021 02:45:[id number]/91 87 room air, no respiratory support MDM MDM/ED COURSE: Sinus tachycardia rate of 128, no ST elevation or depression, no ectopy, normal axis Patient with COVID-19 and in respiratory distress. CT was concerned about an additional bacterial superinfection. He is tachypneic and does have an oxygen requirement. Concerned that this patient has a significant chance for worsening. Did give him a dose of IV antibiotics and will admit to the ICU. DISPOSITION Diagnosis/Annotation: ED Dx Name:Pneumonia due to COVID-19 vi (more content not included)... Normal [facility] RED CELL MORPHOLOGYon 2020 RBC morphology finding Nom (Bld) NORMAL Normal [facility] Comment on above: Performed By: #### M ORP2 #### [place] [address] Radiologyon 05-05-2021 XR Chest Single view Normal [facility] Work Phone: Risk Screen - Adult Emergenc yon 05-05-2021 Risk Screen - Adult Emergency Preferred Language: Preferred Language: Preferred Language for Discussing Health Care (patient/designee)French Advanced Directives: Advance Directive/DNRno Family Violence Adult: Abuse Screen: Are you or have you been threatened or abused physically, emotionally, or sexually by anyoneno Learning Assessment (Patient): Learning Assessment (Patient): Patient is Able to be Assessed for Learningyes Factors Influencing Readiness to Learnacuteness of illness Factors that Impact Ability to Learnnone Devices/Methods Used to Communicatenone Learning Preferencesaudio Cultural Considerationsnone Developmental Considerationsnone Taoism Considerationsnone Learning Assessment (Other Learner): Learning Assessment (Other Learner): Other learner availableno Pressure Injury/TB/Substance: Pressure Injury: Pressure Injury Present on Admissionno Do you have a coughyes... Has your cough lasted longer than 2 weeksno Smoking Statusnever smoker Alcohol Usedenies Drug Usedenies Drug 2 Usedenies Admission Risk Screen: Significant IndicatorsComplete CAGE: CAGE: Is this an injured patient at a Trauma Center ([facility] [place]): no Electronic Signatures: Ivonne Lawson (RN) (Signed 05-May-2021 02:49) Authored: Preferred Language, Advanced Directives, Family Violence Adult, Learning Assessment (Patient), Learning Assessment (Other Learner), Pressure Injury/TB/Substance, Pressure Injury, CAGE Last Updated: 05-May-2021 02:49 by Ivonne Lawson ([email or web address]) [facility] CT Angio Chest For PEon 1 07-06-2020 CT Angio Chest For PE Normal [facility] Work Phone: Triage - EDon 05-05-2021 Triage - ED Quick Triage: The patient and/or guardian verbally acknowledges placement for services into the following (when Urgent Care Service hours are operating):emergency department Chart Review: PRIMARY ASSESSMENT WERNER YEPEZ's primary assessment is Within Defined Limits. The airway is open and patent. Breathing spontaneous and unlabored with clear breath sounds bilaterally. Circulation is normal with good peripheral pulses. Skin is warm and dry and color is normal for race. ARRIVAL INFORMATION Means of Arrival: Ambulatory Mode of Arrival: private vehicle Arrival From: home Accompanied By: self Language: Spoken Language Preferred: French Reading Language Preferred: French Electronics Processing Supervisor Requested: no spanish medical interpreter was requested MDRO: History of MDRO: no Present on Arrival: Device Present on Arrival to ED: no Pressure Ulcer Present on Arrival to ED: no CHIEF COMPLAINT WERNER YEPEZ is a Male patient with a chief complaint of shortness of breath (Pt complaint of shortness of breath and cough starting 04/25. Pt seen at Urgent Care and given zithromax and steroids. Family states patient tested positive with home kit on 04/29.). Triage Date/Time: 05-May-2021 02:45 MACARIO: 3 Pain Rating (0-10): 0 = None Vital Signs: Temperature: 100.6F ( 38.1C) taken forehead Blood Pressure: 132/91 Mean: Heart Rate: 120 Respiratory Rate: 20 Pulse Oximetry: 87% on room air, no respiratory support. Height: 5 feet 11.00 inches. 180.3 CM Weight: 236.5 pounds. Calculated 107.3 kg. (stated) Calculated BMI (kg/m2): 33.007 Calculated BSA (m2) 2.32 Torito Coma Scale: Best Eye Response: (E4) spontaneous Best Motor Response: (M6) obeys commands Best Verbal Response: (V5) oriented Boaz Score: 15 Cough lasting greater than 3 weeks: no Allergies: yes Mask applied: yes Patient has homicidal thoughts: no Symptoms Are POSITIVE For: congestion, cough and dyspnea. Symptoms Are Negative For: body aches, chest pain, chills, diaphoresis, fever, headache and malaise. Risk Screens Suicide Risk Screen In the Past Month: Have you wished you were or wished you could go to sleep and not wake up no In the Past Month: Have you had any actual thoughts of killing yourself no In Your Lifetime: Have you ever done anything, started to do anything, or prepared to do anything to end your life no Barnes Fall Scale Screening Has the patient fallen before (or is the patient in the ED as a result of a fall) has not had a fall Does the patient have an impaired gait does not have impaired gait Is the patient cognitively impaired not cognitively impaired Interventions: Barnes Fall Interventions: LOW INTERVENTIONS: *patient oriented to surroundings and call system, * patient/family falls education completed and documented, *patients fall status communicated during bedside handoff, *whiteboard updated, *mode of toileting discussed with patient, *bed in low position with brakes locked, *call light in reach, * non-skid footwear PAST MEDICAL HISTORY Immunization History: Last Known Tetanus Immunization: Unknown TRAVEL HISTORY Travel History Coronavirus Screening: COVID positive within the last 13 days Travel Exposure History: NO travel to International locations in the past 30 days PAIN Pain Scale Used: MATY Pain Rating (0-10): 0 = None Past Medical History: Past Medical History Reviewedyes Electronic Signatures: Ivonne Lawson (GEREMIAS) (Signed 05-May-2021 02:48) Authored: Quick Triage, Risk Screens, Pain, Arrival, ABCD, Immunizations, Travel History, Chart Review, Scores, Past Medical History Last Updated: 05-May-2021 02:48 by Ivonne Lawson (GEREMIAS) Normal [facility] Office Visit (Internal Medic ine)on 04-29-2021 Follow-up visit Diagnoses/Problems Health Maintenance/Risks Encounter for preventive health examination (V70.0) (Z00.00) Assessed No alcohol use URI (upper respiratory infection) (465.9) (J06.9) Bronchitis, acute (466.0) (J20.9) Orders Bronchitis, acute, URI (upper respiratory infection) Start: Azithromycin 250 MG Oral Tablet (Zithromax); TAKE DIRECTED PER PACKAGE INSTRUCTIONS Rx By: Derick Eagle; Dispense: 0 Days ; #:6 Tablet; Refill: 0;For: Bronchitis, acute, URI (upper respiratory infection); MINO = N; Verified Transmission to [facility]; Last Updated By: Mammotome; 04/29/2021 1:46:06 PM Start: methylPREDNISolone 4 MG Oral Tablet Therapy Pack; as directed on package Rx By: Derick Eagle; Dispense: 0 Days ; #:1 X 21 Tablet Pack; Refill: 0;For: Bronchitis, acute, URI (upper respiratory infection); MINO = N; Verified Transmission to [facility] #6167; Last Updated By: JamKazam Edico Genome; 04/29/2021 1:46:06 PM Start: Xspctenkdnqv-Pybzfccjg-Ydj eine 6.25-5-10 MG/5ML Oral Syrup (Khfpnjtmo-Txyucomzggno-Bl d); 5-10 mL every 4-6 hrs prn cough Rx By: Derick Eagle; Dispense: 0 Days ; #:200 Milliliter; Refill: 0;For: Bronchitis, acute, URI (upper respiratory infection); MINO = N; Verified Transmission to [facility]; Msg to Pharmacy: J20.9; Last Updated By: Boone Lee; 04/29/2021 1:46:05 PM Patient Discussion/Summary Exam is consistent with upper respiratory infection and suspect for COVID-19. Patient is currently uninsured and cannot afford the swab. Z-José, Medrol Dosepak, and Phenergan VC with codeine was written. Recommend rest and supportive care otherwise. 5 days off work note was provided. We will assume the patient is Covid positive and recommend isolation until 10 days from onset which is next Wednesday. Patient advised to watch for chest pain or shortness of breath and to present to the ER should this occur. Follow-up as needed. Chief Complaint Patient here today to get established as a new patient. Patient states it has been over 2 years since last seen by a PCP. Patient is having symptoms of SOB, weakness, shakiness, cough, body chills AND aches with diarrhea x 4 days. Patient states has about 7-8 diarrhea episodes daily. Patient has taken OTC NyQuil, DayQuil and Pepto-Bismol. Patient he took Pepto-Bismol earlier today. Adult Risk Screening Initial Fall Risk Screening: WERNER has not fallen in the last 6 months. Tobacco Screening: WERNER does not use tobacco. History of Present Illness Patient presents to establish care. Patient has no chronic illnesses and takes no daily medications. Patient presents for evaluation of upper respiratory symptoms. Patient reports 4 days of progressively worsening cough, congestion, body aches, malaise, and diarrhea. Patient is not currently vaccinated against COVID-19. Patient does not know of any known direct contact. No attempted conservative management was made. Currently, patient is uninsured. Review of Systems Constitutional: as noted in HPI. ENT: as noted in HPI. Cardiovascular: as noted in HPI. Respiratory: as noted in HPI. Gastrointestinal: as noted in HPI. Genitourinary: no urinary frequency. Musculoskeletal: as noted in HPI. Skin: as noted in HPI. Neurological: as noted in HPI. Psychiatric: as noted in HPI. Active Problems Problems Curvature of the penis (752.69) (Q55.61) Past Medical History Problems History of leukemia (V10.60) (Z85.6) Surgical History Problems No history of surgery Family History Father Family history of hypertension (V17.49) (Z82.49) Family history of type 2 diabetes mellitus (V18.0) (Z83.3) Paternal Grandmother Family history of dementia (V17.2) (Z81.8) Social History Problems Drinks caffeinated tea Never a smoker No alcohol use No illicit drug use Patient ingests cola containing caffeine (V49.89) (Z78.9) Use of energy drinks (V49.89) (Z78.9) Allergies Medication ibuprofen Seizures;; Recorded By: Samy Boss; 04/08/2020 8:35:20 AM Vitals Vital Signs Recorded: 29Apr2021 01:14PM Gjwovxunagl97.9 F Heart Rate98 Irpwjrnp545 Uaeskufww85 Height6 ft Urmjcs320 lb 9.6 oz BMI Xokerzsehr20.55 kg/m2 BSA Calculated2.27 Tobacco Useb) No Fall Screeninga) No falls within the last year O2 Ktyddvptaa39 Physical Exam Constitutional General appearance: Alert and in no acute distress. Eyes Inspection of eyes: Sclera and conjunctiva were normal. Pupil exam: Pupils were equal in size. Extraocular movements were intact. Ears, Nose, Mouth, and Throat Ears: Auricles: Normal. Oropharynx: Normal with moist mucus membranes, no congestion. Tonsils: Normal no follicles. Pulmonary Lateral mild scattered wheezing; no rhonchi or rales. Cardiovascular Auscultation of heart: Apical pulse normal, heart rate and rhythm normal, normal S1 and S2, no murmurs and no pericardial rub. Lymphatic Palpation of lymph nodes in neck: No cervical lymphadenopathy. Musculoskelet (more content not included)... Normal [employer] Tobacco Screening.on 021 Fall risk assessment a) No falls within the last year [facility] Work Phone: Tobacco use status [facility] b) No [facility] Work Phone: .Auto Diffon 06-02-2019 Ammonia (P) [Mass/Vol] 0.30 10 3/mcL Normal 0.15-1.00 [facility] ([place]) Comment on above: Performed By: #### C BC, ADIFF, ANEU #### [address] [address] #### BMP, GFR #### [address] [address] Basophils (Bld) [#/Vol] 0.00 10 3/mcL Normal 0.00-0.19 [facility] ([place]) Comment on above: Performed By: #### C BC, ADIFF, ANEU #### [address] [address] #### BMP, GFR #### [address] [address] Basophils/100 WBC (Bld) 0.1 % Normal 0.0-2.5 [facility] ([place]) Comment on above: Performed By: #### C BC, ADIFF, ANEU #### [address] [address] #### BMP, GFR #### [address] [address] Eosinophils (Bld) [#/Vol] 0.00 10 3/mcL Normal 0.00-0.40 [facility] ([place]) Comment on above: Performed By: #### C BC, ADIFF, ANEU #### [address] [address] #### BMP, GFR #### [address] [address] Eosinophils/100 WBC (Bld) 0.2 % Normal 0.0-7.0 [facility] ([place]) Comment on above: Performed By: #### C BC, ADIFF, ANEU #### [address] [address] #### BMP, GFR #### [address] [address] Lymphocytes (Bld) [#/Vol] 0.50 10 3/mcL Low 0.77-3.85 [facility] ([place]) Comment on above: Performed By: #### C BC, ADIFF, ANEU #### [address] [address] #### BMP, GFR #### [address] [address] Lymphocytes/100 WBC (Bld) 4.3 % Low 10.0-50.0 [facility] ([place]) Comment on above: Performed By: #### C BC, ADIFF, ANEU #### [address] [address] #### BMP, GFR #### [address] [address] Monocytes/100 WBC (Bld) 2.7 % Normal 1.7-13.0 [facility] ([place]) Comment on above: Performed By: #### C BC, ADIFF, ANEU #### [address] [address] #### BMP, GFR #### [address] [address] Neutrophils/100 WBC (Bld) 92.7 % High 37.0-80.0 [facility] ([place]) Comment on above: Performed By: #### C BC, ADIFF, ANEU #### [address] [address] #### BMP, GFR #### [address] [address] .GFRon 06-02-2019 GFR 72 ml/min/1.73sqm Normal [facility] ([place]) Comment on above: Result Comment: GFR Population mean for , Non- Americans Ages 20-29 = 116 mL/min/1.73 sq.m. Ages 30-39 = 107 mL/min/1.73 sq.m. Ages 40-49 = 99 mL/min/1.73 sq.m. Ages 50-59 = 93 mL/min/1.73 sq.m. Ages 60-69 = 85 mL/min/1.73 sq.m. Ages 70+ = 75 mL/min/1.73 sq.m. Chronic Kidney Disease: Less than 60 mL/min/1.73 square meters End Stage Renal Disease: Less than 15 mL/min/1.73 square meters Performed By: #### C BC, ADIFF, ANEU #### [address] [address] #### BMP, GFR #### [address] [address] GFR Non- 59 ml/min/1.73sqm Normal [facility] ([place]) Comment on above: Result Comment: GFR Population mean for , Non- Americans Ages 20-29 = 116 mL/min/1.73 sq.m. Ages 30-39 = 107 mL/min/1.73 sq.m. Ages 40-49 = 99 mL/min/1.73 sq.m. Ages 50-59 = 93 mL/min/1.73 sq.m. Ages 60-69 = 85 mL/min/1.73 sq.m. Ages 70+ = 75 mL/min/1.73 sq.m. Chronic Kidney Disease: Less than 60 mL/min/1.73 square meters End Stage Renal Disease: Less than 15 mL/min/1.73 square meters Performed By: #### C BC, ADIFF, ANEU #### [address] [address] #### BMP, GFR #### [address] [address] .NEUABSon 06-02-2019 Neutrophils (Bld) [#/Vol] 10.30 10 3/mcL High 2.85-6.16 [facility] ([place]) Comment on above: Performed By: #### C BC ADIFF, ANEU #### [address] [address] #### BMP, GFR #### [address] [address] BMPon 06-02-2019 Calcium [Mass/Vol] 9.2 mg/dL Normal 8.4-10.2 [facility] ([place]) Comment on above: Performed By: #### C BC, ADIFF, ANEU #### [address] [address] #### BMP, GFR #### [address] [address] Chloride [Moles/Vol] 101 mmol/L Normal 98-107 [facility] ([place]) Comment on above: Performed By: #### C BC, ADIFF, ANEU #### [address] [address] #### BMP, GFR #### [address] [address] CO2 [Moles/Vol] 24 mmol/L Normal 22-29 [facility] ([place]) Comment on above: Performed By: #### C BC, ADIFF, ANEU #### [address] [address] #### BMP, GFR #### [address] [address] Creatinine [Mass/Vol] 1.39 mg/dL High 0.70-1.30 [facility] ([place]) Comment on above: Performed By: #### C BC, ADIFF, ANEU #### [address] [address] #### BMP, GFR #### [address] [address] Electrolyte Balance 13.0 mEq/L Normal [facility] ([place]) Comment on above: Performed By: #### C BC, ADIFF, ANEU #### [address] [address] #### BMP, GFR #### [address] [address] Glucose [Mass/Vol] 105 mg/dL Normal 70-105 [facility] ([place]) Comment on above: Performed By: #### C BC, ADIFF, ANEU #### [address] [address] #### BMP, GFR #### [address] [address] Potassium [Moles/Vol] 4.0 mmol/L Normal 3.5-5.1 [facility] ([place]) Comment on above: Performed By: #### C BC, ADIFF, ANEU #### [address] [address] #### BMP, GFR #### [address] [address] Sodium [Moles/Vol] 138 mmol/L Normal 136-145 [facility] ([place]) Comment on above: Performed By: #### C BC, ADIFF, ANEU #### [address] [address] #### BMP, GFR #### [address] [address] Urea nitrogen [Mass/Vol] 22 mg/dL High 7-18 [facility] ([place]) Comment on above: Performed By: #### C BC, ADIFF, ANEU #### [address] [address] #### BMP, GFR #### [address] [address] Urea nitrogen/Creatinine [Mass ratio] 16 ratio Normal 7-27 [facility] ([place]) Comment on above: Performed By: #### C BC, CADYIFF, ANEU #### [address] [address] #### BMP, GFR #### [address] [address] CBCon 06-02-2019 Erythrocyte distribution width (RBC) [Ratio] 12.8 % Normal 11.5-14.5 [facility] ([place]) Comment on above: Performed By: #### C BC, ADIFF, ANEU #### [address] [address] #### BMP, GFR #### [address] [address] Hematocrit (Bld) [Volume fraction] 45.4 % Normal 42.0-52.0 [facility] ([place]) Comment on above: Performed By: #### C BC, ADIFF, ANEU #### [address] [address] #### BMP, GFR #### [address] [address] Hemoglobin (Bld) [Mass/Vol] 15.7 G/dL Normal 14.0-18.0 [facility] ([place]) Comment on above: Performed By: #### C DAISY HONG, ANEU #### [address] [address] #### BMP, GFR #### [address] [address] MCH (RBC) [Entitic mass] 31.1 pg Normal 27.0-31.2 [facility] ([place]) Comment on above: Performed By: #### C DAISY HONG, ANEU #### [place] [address] #### BMP, GFR #### [place] [address] MCHC (RBC) [Mass/Vol] 34.5 G/dL Normal 31.8-35.4 [facility] ([place]) Comment on above: Performed By: #### C DAISY HONG, ANEU #### [place] [address] #### BMP, GFR #### [place] [address] MCV (RBC) [Entitic vol] 90.2 fL Normal 80.0-94.0 [facility] ([place]) Comment on above: Performed By: #### C DAISY OHNG, ANEU #### [place] [address] #### BMP, GFR #### [place] [address] Platelet mean volume (Bld) [Entitic vol] 9.6 fL Normal 7.4-10.4 [facility] ([place]) Comment on above: Performed By: #### DAISY KOHLER, ANEU #### [place] [address] #### BMP, GFR #### [place] [id number] Platelets (Bld) [#/Vol] 198 10 3/mcL Normal 130-400 [facility] ([place]) Comment on above: Performed By: #### C BC, CADYIFF, ANEU #### [address] [address] #### BMP, GFR #### [address] [address] RBC (Bld) [#/Vol] 5.03 10 6/mcL Normal 4.04-6.13 [facility] ([place]) Comment on above: Performed By: #### C BC, ADIFF, ANEU #### [address] [address] #### BMP, GFR #### [address] [address] WBC (Bld) [#/Vol] 11.10 10 3/mcL High 4.60-10.80 [facility] ([place]) Comment on above: Performed By: #### C DAISY HONG, ANEU #### [address] [address] #### BMP, GFR #### [address] [address] CNOVon 06-02-2019 [facility] -- WERNER YEPEZ ([id number]) 1985 M Date Time Provider Department 06/02/19 9:00 AM BRIANDA MCCLURE [facility] During your visit today, we recorded the following information about you: Brianda Mcclure APRN.LEATHER SHAVER 06/02/2019 9:42 AM Signed Triage Note: Pt presents with c/o fatigue, weakness and hematemesis x several days.' +abd pain. No nausea, diarrhea. Hx GERD Does not have PCP. There were no vitals taken for this visit. .No chief complaint on file. 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 No family history on file. Social History Tobacco Use - Smoking status: Light Tobacco Smoker Types: Cigarettes - Smokeless tobacco: Former User Substance Use Topics - Alcohol use: Not on file - Drug use: No ASSESSMENT/PLAN: 1. Hematemesis without nausea - ICD9: 578.0, ICD10: K92.0 - CONSULT TO EMERGENCY MEDICINE Going to [facility]. 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 Author Type: Nurse Practitioner Type: Progress Notes Filed: 06/02/2019 9:42 AM Note Text: Triage Note: Pt presents with c/o fatigue, weakness and hematemesis x several days.' +abd pain. No nausea, diarrhea. Hx GERD Does not have PCP. There were no vitals taken for this visit. .No chief complaint on file. 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 No family history on file. Social History Tobacco Use - Smoking status: Light Tobacco Smoker Types: Cigarettes - Smokeless tobacco: Former User Substance Use Topics - Alcohol use: Not on file - Drug use: No ASSESSMENT/PLAN: 1. Hematemesis without nausea - ICD9: 578.0, ICD10: K92.0 - CONSULT TO EMERGENCY MEDICINE Going to [place] [facility]. Brianda Mcclure, ANGELES.LEATHER SHAVER Normal [facility] Testost Totalon 08-27-2018 Testoster Tot 293 ng/dL Normal 264-[address] [facility] Comment on above: Result Comment: Adul t male reference interval is based on a population of healthy nonobese males (BMI <30) between 19 and 39 years old. Uri, et.al. JCEM 2017,102;9497-5160. PMID: [id number]. Performed At: [facility] [address] [id number] Joie Mosher PhD Ph:[phone] Performed By: #### 2 [id number] #### CHRIS Send Outs Subsection [address] [place] [address] Auto Diffon 08-26-2018 Basophils #/vol (Bld) 0.1 E3/mcL Normal 0.0-0.[address] [facility] Comment on above: Order Comment: Order Added by Discern Expert. Performed By: #### 2 [id number] #### CHRIS RemHemo [facility] [place] [id number] Basophils/100 WBC (Bld) 1.2 % Normal 0.0-2.[address] [facility] Comment on above: Order Comment: Order Added by Discern Expert. Performed By: #### 2 [id number] #### CHRIS RemHemo [address] [place] [address] Eos Absolute 0.3 E3/mcL Normal 0.0-0.[address] [facility] Comment on above: Order Comment: Order Added by Discern Expert. Performed By: #### 2 [id number] #### CHRIS RemHemo [address] [place] [address] Eosinophils/100 WBC (Bld) 5.3 % Normal 0.0-11.[address] [facility] Comment on above: Order Comment: Order Added by Discern Expert. Performed By: #### 2 [id number] #### CHRIS RemHemo [address] [place] [address] Lymphocytes #/vol (Bld) 2.1 E3/mcL Normal 1.2-3.[address] [facility] Comment on above: Order Comment: Order Added by Discern Expert. Performed By: #### 2 [id number] #### CHRIS RemHemo [address] [place] [address] Lymphocytes/100 WBC (Bld) 37.5 % Normal 20.0-55.[address] [facility] Comment on above: Order Comment: Order Added by Discern Expert. Performed By: #### 2 153077 #### CHRIS RemHemo [address] [place] [address] Dougherty Absolute 0.6 E3/mcL Normal 0.0-0.[address] [facility] Comment on above: Order Comment: Order Added by Discern Expert. Performed By: #### 2 [id number] #### CHRIS RemHemo [address] [place] [address] Monocytes/100 WBC (Bld) 10.1 % High 0.0-10.[address] [facility] Comment on above: Order Comment: Order Added by Discern Expert. Performed By: #### 2 [id number] #### CHRIS RemHemo [address] [place] [address] Neutro Absolute 2.5 E3/mcL Normal 1.4-6.[address] [facility] Comment on above: Order Comment: Order Added by Discern Expert. Performed By: #### 2 [id number] #### CHRIS RemHemo [address] [place] [address] Neutro Auto 45.9 % Normal 37.0-75.[address] [facility] Comment on above: Order Comment: Order Added by Discern Expert. Performed By: #### 2 [id number] #### CHRIS Austino [facility] [place] [id number] CBC w/ Auto Diffon 9 Erythrocyte distribution width Ratio (RBC) 12.7 % Normal 11.5-14.[address] [facility] Comment on above: Performed By: #### 2 [id number] #### CHRIS Austino [address] [place], [place] [id number] Hematocrit Volume Fraction (Bld) 45.0 % Normal 42.0-52.[address] [facility] Comment on above: Performed By: #### 2 [id number] #### CHRIS Austino [facility] [place] [id number] Hemoglobin mass conc (Bld) 15.3 g/dL Normal 13.5-18.[address] [facility] Comment on above: Performed By: #### 2 [id number] #### CHRIS BrownHemo [address] [place], [place] [address] MCH Entitic mass (RBC) 31.5 pg High 27.0-31.[address] [facility] Comment on above: Performed By: #### 2 [id number] #### CHRIS BrownHemo [address] [place], [place] [address] MCHC mass conc (RBC) 34.0 g/dL Normal 33.0-37.[address] [facility] Comment on above: Performed By: #### 2 659125 #### CHRIS BrownHemo [facility] [place] [id number] MCV Entitic volume (RBC) 92.7 fL Normal 78.0-100.[address] [facility] Comment on above: Performed By: #### 2 736110 #### CHRIS BrownHemo [address] [place] [address] Platelet mean volume Entitic volume (Bld) 10.4 fL Normal 7.4-11.[address] [facility] Comment on above: Performed By: #### 2 103008 #### CHRIS BrownHemo [address] [place] [address] Platelets #/vol (Bld) 218 E3/mcL Normal 130-[address] [facility] Comment on above: Performed By: #### 2 668455 #### CHRIS RemHemo [address] [place] [address] RBC #/vol (Bld) 4.85 E6/mcL Normal 3.90-6.10 [facility] Comment on above: Performed By: #### 2 240699 #### CHRIS RemHemo [address] [place] [address] WBC #/vol (Bld) 5.5 E3/mcL Normal 3.6-11.[address] [facility] Comment on above: Performed By: #### 2 [id number] #### CHRIS RemHemo [address] [place] [id number] CMPon 08-26-2018 Albumin mass conc 4.7 g/dL Normal 3.4-5.0 [facility] Comment on above: Performed By: #### 2 [id number] #### [facility] [employer] [address] [place] [address] Albumin/Globulin mass ratio 2.5 {ratio} High 1.1-1.[address] [facility] Comment on above: Performed By: #### 2 [id number] #### [facility] [employer] [address] [place] [address] Alk Phos 48 Int._Unit/L Normal 33-[address] [facility] Comment on above: Performed By: #### 2 815827 #### CHRIS [employer] [address] [place] [address] ALT enzyme act/vol 16 Int._Unit/L Normal 10-52 [facility] Comment on above: Performed By: #### 2 [id number] #### CHRIS [employer] [address] [place] [address] Anion gap molar conc 9 mmol/L Low 10-[address] [facility] Comment on above: Performed By: #### 2 508943 #### CHRIS [employer] [address] [place] [address] AST enzyme act/vol 16 Int._Unit/L Normal 9-39 [facility] Comment on above: Performed By: #### 2 [id number] #### CHRIS [employer] [address] [place] [address] Bili Total 0.75 mg/dL Normal 0.00-1.[address] [facility] Comment on above: Performed By: #### 2 531705 #### CHRIS [employer] [address] [place] [address] Calcium mass conc 9.9 mg/dL Normal 8.6-10.3 [facility] Comment on above: Performed By: #### 2 256497 #### CHRIS [employer] [address] [place] [address] Chloride molar conc 106 mmol/L Normal 98-107 [facility] Comment on above: Performed By: #### 2 488514 #### CHRIS [employer] [address] [place] [address] CO2 molar conc 32.0 mmol/L Normal 21.0-32.[address] [facility] Comment on above: Performed By: #### 2 786468 #### CHRIS [employer] [address] [place] [address] Creatinine mass conc 1.1 mg/dL Normal 0.5-1.[address] [facility] Comment on above: Performed By: #### 2 281008 #### CHRIS [employer] [address] [place] [address] Globulin mass conc (S) 2.0 g/dL Normal 2.0-4.[address] [facility] Comment on above: Performed By: #### 2 649295 #### CHRIS [employer] [address] [place] [address] Glucose mass conc 83 mg/dL Normal 70-99 [facility] Comment on above: Performed By: #### 2 132230 #### CHRIS [employer] [address] [place] [address] Potassium molar conc 4.1 mmol/L Normal 3.5-5.[address] [facility] Comment on above: Performed By: #### 2 107427 #### CHRIS [employer] [address] [place] [address] Protein mass conc 6.6 g/dL Normal 6.4-8.2 [facility] Comment on above: Performed By: #### 2 518804 #### CHRIS [employer] [address] [place] [address] Sodium molar conc 143 mmol/L Normal 136-145 [facility] Comment on above: Performed By: #### 2 616981 #### CHRIS [employer] [facility] [place] [address] Urea nitrogen mass conc 16 mg/dL Normal 6-[address] [facility] Comment on above: Performed By: #### 2 067038 #### CHRIS [employer] [facility] [place] [address] Urea nitrogen/Creatinine mass ratio 14.5 ratio Normal 5.4-30.[address] [facility] Comment on above: Performed By: #### 2 [id number] #### CHRIS [employer] [address] [place] [address] TSHon 08-26-2018 Thyrotropin Qn 1.00 mcIU/mL Normal 0.30-5.60 [facility] Comment on above: Performed By: #### 2 674904 #### CHRIS RemHolidu [address] [place] [address] eGFRon 08-26-2018 GFR/1.73 sq M predicted among non-blacks MDRD vol rate/area (S/P/Bld) mL/min/{1.73_m2} Normal [facility] Comment on above: Order Comment: Order added by Discern Expert. Performed By: #### 1 [id number] #### CHRIS [employer] [address] [place], [place] [address] Vital Signs Date Time Vital Sign Value Performing Clinician Facility 01-08-2025 16:35-0400 Body height 180.3 cm Rebel Stentz PA-C Work Phone: [facility] 01-08-2025 16:35-0400 Body mass index (BMI) [Ratio] 34.31 kg/m2 Rebel Stentz PA-C Work Phone: [facility] 01-08-2025 16:35-0400 Body weight 111.58 kg Rebel Stentz PA-C Work Phone: [facility] 01-08-2025 16:35-0400 Diastolic blood pressure 82 mm[Hg] Rebel Stentz PA-C Work Phone: [facility] 01-08-2025 16:35-0400 Heart rate 76 /min Rebel Stentz PA-C Work Phone: [facility] 01-08-2025 16:35-0400 SaO2% (BldA) [Mass fraction] 97 % Rebel Stentz PA-C Work Phone: [facility] 01-08-2025 16:35-0400 Systolic blood pressure 136 mm[Hg] Rebel Stentz PA-C Work Phone: [facility] 01-06-2025 12:13-0400 Body height 182.9 cm Dennis Doyleenifran HIM CLERK-LEATHER SHAVER Work Phone: [facility] 01-06-2025 12:13-0400 Body mass index (BMI) [Ratio] 32.89 kg/m2 Dennis Doyleenifran HIM CLERK-LEATHER SHAVER Work Phone: [facility] 01-06-2025 12:13-0400 Body temperature 98.01 [degF] Dennis Doyleenifran HIM CLERK-LEATHER SHAVER Work Phone: [facility] 01-06-2025 12:13-0400 Body weight 110 kg Dennis Doyleenifran HIM CLERK-LEATHER SHAVER Work Phone: [facility] 01-06-2025 12:13-0400 Diastolic blood pressure 87 mm[Hg] Dennis Conte HIM CLERK-LEATHER SHAVER Work Phone: [facility] 01-06-2025 12:13-0400 Heart rate 65 /min Dennis Doyleenifran HIM CLERK-LEATHER SHAVER Work Phone: [facility] 01-06-2025 12:13-0400 Respiratory rate 18 /min Dennis Conte HIM CLERK-LEATHER SHAVER Work Phone: [facility] 01-06-2025 12:13-0400 Systolic blood pressure 129 mm[Hg] Dennis Doyleenifran HIM CLERK-LEATHER SHAVER Work Phone: [facility] 12-25-2024 12:13-0400 Body temperature 98.71 [degF] Dennis Conte APRN-LEATHER SHAVER Work Phone: [facility] 12-25-2024 12:13-0400 Diastolic blood pressure 83 mm[Hg] Dennis Conte APRN-LEATHER SHAVER Work Phone: [facility] 12-25-2024 12:13-0400 Heart rate 80 /min Dennis Conte HIM CLERK-LEATHER SHAVER Work Phone: [facility] 12-25-2024 12:13-0400 Respiratory rate 14 /min Dennis Conte APRN-LEATHER SHAVER Work Phone: [facility] 12-25-2024 12:13-0400 SaO2% (BldA) [Mass fraction] 96 % Dennis Conte HIM CLERK-LEATHER SHAVER Work Phone: [facility] 12-25-2024 12:13-0400 Systolic blood pressure 141 mm[Hg] Dennis Conte APRN-LEATHER SHAVER Work Phone: [facility] 06-03-2021 11:22-0500 Body height 182.88 cm Derick Eagle Work Phone: [facility] Work Phone: 06-03-2021 11:22-0500 Body mass index (BMI) [Ratio] 31.6 kg/m2 Derick Eagle Work Phone: [facility] Work Phone: 06-03-2021 11:22-0500 Body surface area Derived from formula 2.27 m2 Derick Eagle Work Phone: [facility] Work Phone: 06-03-2021 11:22-0500 Body temperature 98.6 [degF] Derick Russol Work Phone: [facility] Work Phone: 06-03-2021 11:22-0500 Body weight 105.69 kg Derick Russol Work Phone: [facility] Work Phone: 06-03-2021 11:22-0500 Diastolic blood pressure 90 mm[Hg] Derick Eagle Work Phone: [facility] Work Phone: 06-03-2021 11:22-0500 Heart rate 89 /min Derick Eagle Work Phone: [facility] Work Phone: 06-03-2021 11:22-0500 SaO2% (BldA) [Mass fraction] 96 % Derick Eagle Work Phone: [facility] Work Phone: 06-03-2021 11:22-0500 Systolic blood pressure 138 mm[Hg] Derick Eagle Work Phone: [facility] Work Phone: 05-14-2021 10:30-0500 Body height 182.88 cm Derick Eagle Work Phone: [facility] Work Phone: 05-14-2021 10:30-0500 Body mass index (BMI) [Ratio] 29.78 kg/m2 Derick Eagle Work Phone: [facility] Work Phone: 05-14-2021 10:30-0500 Body surface area Derived from formula 2.22 m2 Derick Eagle Work Phone: [facility] Work Phone: 05-14-2021 10:30-0500 Body temperature 98.4 [degF] Derick Eagle Work Phone: [facility] Work Phone: 05-14-2021 10:30-0500 Body weight 99.61 kg Derick Eagle Work Phone: [facility] Work Phone: 05-14-2021 10:30-0500 Diastolic blood pressure 90 mm[Hg] Derick Eagle Work Phone: [facility] Work Phone: 05-14-2021 10:30-0500 Heart rate 111 /min Derick Eagle Work Phone: [facility] Work Phone: 05-14-2021 10:30-0500 SaO2% (BldA) [Mass fraction] 93 % Derick Eagle Work Phone: [facility] Work Phone: 05-14-2021 10:30-0500 Systolic blood pressure 134 mm[Hg] Derick Eagle Work Phone: [facility] Work Phone: 04-29-2021 13:14-0500 Body height 182.88 cm Derick Eagle Work Phone: [facility] Work Phone: 04-29-2021 13:14-0500 Body mass index (BMI) [Ratio] 31.55 kg/m2 Derick Eagle Work Phone: [facility] Work Phone: 04-29-2021 13:14-0500 Body surface area Derived from formula 2.27 m2 Derick Eagle Work Phone: [facility] Work Phone: 04-29-2021 13:14-0500 Body temperature 96.9 [degF] Derick Eagle Work Phone: [facility] Work Phone: 04-29-2021 13:14-0500 Body weight 105.51 kg Derick Eagle Work Phone: [facility] Work Phone: 04-29-2021 13:14-0500 Diastolic blood pressure 88 mm[Hg] Derick Eagle Work Phone: [facility] Work Phone: 04-29-2021 13:14-0500 Heart rate 98 /min Derick Eagle Work Phone: [facility] Work Phone: 04-29-2021 13:14-0500 SaO2% (BldA) [Mass fraction] 95 % Derick Eagle Work Phone: [facility] Work Phone: 04-29-2021 13:14-0500 Systolic blood pressure 140 mm[Hg] Derick Eagle Work Phone: [facility] Work Phone: Encounters Encounter Date Encounter Type Care Provider Facility Start: 01-08-2025 End: 01-08-2025 ambulatory [facility] Ambulatory Start: 01-08-2025 End: 01-08-2025 Office outpatient new 45 minutes [facility] PA-C Work Phone: [facility] Comment on above: Thrush (Primary Dx); Unprotected sex Start: 01-06-2025 End: 01-06-2025 Office outpatient visit 15 minutes Dennis Conte APRN-LEATHER SHAVER Work Phone: [facility] Comment on above: Post-nasal drainage (Primary Dx); Coated tongue Start: 01-06-2025 End: 01-06-2025 ambulatory NO ASSIGNED PCP GENERIC PROVIDER [facility] Start: 12-25-2024 End: 12-25-2024 Office outpatient visit 15 minutes Dennis Conte HIM CLERK-LEATHER SHAVER Work Phone: [facility] Comment on above: Thrush, oral (Primar y Dx); Situational anxiety Start: 12-25-2024 End: 12-25-2024 ambulatory DENNIS CONTE [facility] Start: 10-30-2023 End: 10-30-2023 ambulatory Emmy WOO Facility:[facility] Start: 06-03-2021 FUV, Provider: Derick Eagle, Status: Pen, Time: 11:10 AM Derick Eagle Work Phone: [facility] Work Phone: Start: 06-03-2021 Office outpatient vi sit 25 minutes Derick Eagle Work Phone: [facility] Work Phone: Start: 06-02-2021 Chart Update Derick Eagle Work Phone: [facility] Work Phone: Start: 05-14-2021 Office outpatient vi sit 25 minutes Derick Eagle Work Phone: [facility] Work Phone: Start: 04-29-2021 Current tobacco non-user cad cap copd pv dm Derick Eagle Work Phone: [facility] Work Phone: Procedures Date Procedure Procedure Detail Performing Clinician Start: 01-08-2025 Comprehensive metabo lic panel Dennis Conte HIM CLERK-LEATHER SHAVER Work Phone: Start: 01-08-2025 HIV-1/HIV-2 antigen/antibody combination immunoassay Dennis Conte HIM CLERK-LEATHER SHAVER Work Phone: No history of surgery Derick Eagle Work Phone: Plan of Treatment Date Care Activity Detail Author Start: 2036 Zoster Vaccines (1 of 2) Zoste r Vaccines (1 of 2) [facility] Start: 03-13-2025 End: 03-13-2025 Patient encounter procedure 03/13/2025 4:40 PM EDT Office Visit [facility] [address] [place] [id number] Rebel Damian PA-C [address] [facility] [address] [place] [address] [facility] Start: 01-29-2025 Influenza vaccination Influenza Vacc ine (#1) [facility] Start: 01-30-2024 COVID-19 Vaccine ( season) COVID-19 Vaccine ( season) [facility] Start: 05-09-2022 Diabetes mellitus screening Diabetes Screening [facility] Start: 06-18-2021 NPV, Provider: Vern Barber, Status: Pen, Time: 10:00 AM NPV, Provider: Vern Barber, Status: Pen, Time: 10:00 AM [facility] Work Phone: Start: 2013 HPV Vaccines (1 - 3- dose standard series) HPV Vaccines (1 - 3-dose standard series) [facility] Start: 2008 DTaP/Tdap/Td Vaccine s (1 - Tdap) DTaP/Tdap/Td Vaccines (1 - Tdap) [facility] Start: 2005 Hepatitis B Vaccines (1 of 3 - 19+ 3-dose series) Hepatitis B Vaccines (1 of 3 - 19+ 3-dose series) [facility] Start: 2004 Hepatitis C screening Hepatitis C Sc reening [facility] Start: 09-24-1999 Varicella vaccination Varicell a Vaccines (1 of 2 - 13+ 2-dose series) [facility] Start: 09-24-1987 MMR Vaccines (1 of 1 - Standard series) MMR Vaccines (1 of 1 - Standard series) [facility] Start: 1986 HIV screening HIV Screening [facility] Start: 1986 Lipid panel Lipid Panel [facility] Start: 1986 Yearly Adult Physical Yearly Adult P hysical [facility] Payers Date Payer Category Payer Blue Cross [facility] [id number] 2024 Unknown [id number] 2023 Self-pay 1986 Unknown [id number] 1986 Unknown [id number] 1986 Unknown [id number] Unknown Unknown [id number] Social History Date Type Detail Facility Start: 01-08-2025 Drinks caffeinated tea Drinks caffei nated tea [facility] Tobacco smoking stat [facility] Tobacco smoking consumption unknown [facility] Work Phone: Start: 1986 Sex assigned at Not on file [facility] Work Phone: Start: 04-25-2022 Sex Male [facility] Start: 01-08-2025 Gender identity Not on file [facility] Start: 01-08-2025 Tobacco smoking stat [facility] Never smoked tobacco [facility] Start: 01-08-2025 Tobacco use and exposure Smokeless tobacco non-user [facility] Work Phone: Functional Status Date Assessment Result Facility 01-08-2025 Patient Health [facility] ionnaire 2 item (PHQ-2) [Reported] [facility] Work Phone: Clinical Notes 04-29-2021 to 01-08-2025 Rebel Damian PA-C - 01/08/2025 4:20 PM EDTMorgan Sen Conte, [facility] 01/06/2025 12:10 PM EDTMorgan Sen Aguedafran [facility] - 12/25/2024 12:10 PM EDT Note Date & Type Note Facility 01-08-2025 History of Present illness Narrative Subjective Patient ID: Werner Yepez is a 39 y.o. male who [facility] (Pt c/o white spots on tongue that did not respond to treatment ). HPI Was treated by for thrush/white tongue with nystatin suspension, some mild improvement. 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 Review of Systems Constitutional: Negative. Respiratory: Negative. Cardiovascular: Negative. Gastrointestinal: Negative. Objective BP 136/82 Pulse 76 Ht 1.803 m (5' 11) Wt 112 kg (246 lb) SpO2 97% BMI 34.31 kg/m Physical Exam Constitutional: General: He is not in acute distress. Appearance: Normal appearance. He is not ill-appearing. HENT: Head: Normocephalic and atraumatic. Eyes: Extraocular Movements: Extraocular movements intact. Conjunctiva/sclera: Conjunctivae normal. Cardiovascular: Rate and Rhythm: Normal rate. Pulmonary: Effort: Pulmonary effort is normal. Abdominal: General: There is no distension. Musculoskeletal: General: Normal range of motion. Cervical back: Normal range of motion. Skin: General: Skin is warm and dry. Neurological: General: No focal deficit present. Mental Status: He is alert and oriented to person, place, and time. Psychiatric: Mood and Affect: Mood normal. Behavior: Behavior normal. Thought Content: Thought content normal. Judgment: Judgment normal. Assessment/Plan Rx diflucan oral, two doses. If not effective will Rx magic mouthwash. Follow up 2 months or sooner prn. documented in this encounter [facility] Work Phone: 01-06-2025 History of Present illness Narrative Subjective HPI 39 y.o. male presents for evaluation of white coating to tongue that began a few weeks ago. States his throat is also sore and has some post nasal drainage and cough. He did complete nystatin swish and swallow without improvement in symptoms. He was initially concerned for HIV as he had unprotected sexual intercourse just prior to onset of symptoms. Denies any other symptoms. Would like retested for STD today. No other complaints. ROS See HPI Objective Vitals: 01/06/25 1213 BP: 129/87 Pulse: 65 Resp: 18 Temp: 36.7 C (98 F) RX Allergies[1] Medication Documentation Review Audit Reviewed by Cassie Reeder CMA (Quality Systems Technician) on 01/08/25 at 1634 Medication Order Taking? Sig Documenting Provider Last Dose Status cetirizine (ZyrTEC) 10 mg tablet [id number] Yes Take 1 tablet (10 mg) by mouth once daily. MEJIA Mello Active hydrOXYzine HCL (Atarax) 25 mg tablet [id number] Take 1 tablet (25 mg) by mouth 4 times a day as needed for itching. Patient not taking: Reported on 01/08/2025 MEJIA Mello Active nystatin (Mycostatin) 100,000 unit/mL suspension [id number] Swish and swallow 4 mL (400,000 Units) 4 times a day for 7 days. Patient not taking: Reported on 01/08/2025 MEJIA Mello 01/06/25 2359 Medical History[2] Surgical History[3] Physical Exam Vitals and nursing note reviewed. Constitutional: Appearance: Normal appearance. HENT: Head: Normocephalic and atraumatic. Right Ear: Tympanic membrane, ear canal and external ear normal. Left Ear: Tympanic membrane, ear canal and external ear normal. Nose: Nose normal. Mouth/Throat: Mouth: Mucous membranes are moist. Comments: Faintly white tongue Eyes: Conjunctiva/sclera: Conjunctivae normal. Pupils: Pupils are equal, round, and reactive to light. Cardiovascular: Rate and Rhythm: Normal rate. Pulmonary: Effort: Pulmonary effort is normal. Breath sounds: Normal breath sounds. Lymphadenopathy: Cervical: No cervical adenopathy. Skin: General: Skin is warm and dry. Neurological: General: No focal deficit present. Mental Status: He is alert and oriented to person, place, and time. Psychiatric: Mood and Affect: Mood normal. Behavior: Behavior normal. Assessment Assessment/Plan/MDM Werner was seen today for sore throat. Diagnoses and all orders for this visit: Post-nasal drainage (Primary) - cetirizine (ZyrTEC) 10 mg tablet; Take 1 tablet (10 mg) by mouth once daily. Coated tongue - CBC and Auto Differential; Future - Comprehensive metabolic panel; Future - HIV 1/2 Antigen/Antibody Screen with Reflex to Confirmation; Future - CBC and Auto Differential - Comprehensive metabolic panel - HIV 1/2 Antigen/Antibody Screen with Reflex to Confirmation Symptoms could be related to seasonal allergies/PND. Will try Zyrtec and will repeat labs and relay results when able. Patient's clinical presentation is otherwise unremarkable at this time. Patient is discharged with instructions to follow-up with primary care or seek emergency medical attention for worsening symptoms or any new concerns. I did personally review Werner's past medical history, surgical history, social history, as well as family history (when relevant). In this case, I also oversaw the his drug management by reviewing his medication list, allergy list, as well as the medications that I prescribed during the UC course and/or recommended as an out-patient (including possible OTC medications such as acetaminophen, NSAIDs , etc). After reviewing the items above, I did look at previous medical documentation, such as recent hospitalizations, office visits, and/or recent consultations with PCP/specialist. SDOH: Another factor that I considered in Werner's care was his Social Determinants of Health (SDOH). During this UC encounter, he did not have social determinants of health. Those SDOH influencing Werner's care are: none Dennis Conte CNP [facility] [1] Allergies Allergen Reactions Ibuprofen Seizure and Other [2] Past Medical History: Diagnosis Date Personal history of leukemia History of leukemia Personal history of other diseases of the respiratory system 04/29/2021 History of upper respiratory infection [3] Past Surgical History: Procedure Laterality Date OTHER SURGICAL HISTORY 04/08/2020 No history of surgery documented in this encounter [facility] Work Phone: 12-25-2024 History of Present illness Narrative Subjective HPI 39 y.o. male presents for evaluation of white coating on tongue as well as sores in mouth that began a few days ago. States he recently completed Z-José for URI. States she also recently had an episode of sexual intercourse approximately 2 weeks ago and has since been tested for gonorrhea/chlamydia/trichomonas/HI V which were all negative thus far. Denies any fevers, sore throat, body aches, rashes, urinary symptoms or any other associated similar complaint. States he has significantly increased anxiety over possible STD exposure. States partner stated to him that they do not have any STDs. No other complaints. ROS See HPI Objective Vitals: 12/25/24 1213 BP: 141/83 Pulse: 80 Resp: 14 Temp: 37.1 C (98.7 F) SpO2: 96% RX Allergies[1] Medication Documentation Review Audit Reviewed by Lux Begum MA (Quality Systems Technician) on 12/25/24 at 1213 Medication Order Taking? Sig Documenting Provider Last Dose Status azithromycin (Zithromax) 250 mg tablet [id number] Yes Historical Provider, Active Medical History[2] Surgical History[3] Physical Exam Vitals and nursing note reviewed. Constitutional: Appearance: Normal appearance. HENT: Head: Normocephalic and atraumatic. Right Ear: Tympanic membrane, ear canal and external ear normal. Left Ear: Tympanic membrane, ear canal and external ear normal. Nose: Nose normal. Mouth/Throat: Mouth: Mucous membranes are moist. Oral lesions (ulcerations to lower mucosa) present. Tongue: Lesions (White coating) present. Pharynx: No oropharyngeal exudate or posterior oropharyngeal erythema. Eyes: Conjunctiva/sclera: Conjunctivae normal. Pupils: Pupils are equal, round, and reactive to light. Cardiovascular: Rate and Rhythm: Normal rate. Pulmonary: Effort: Pulmonary effort is normal. Abdominal: Palpations: Abdomen is soft. Tenderness: There is no abdominal tenderness. There is no right CVA tenderness or left CVA tenderness. Lymphadenopathy: Cervical: No cervical adenopathy. Skin: General: Skin is warm and dry. Neurological: General: No focal deficit present. Mental Status: He is alert and oriented to person, place, and time. Psychiatric: Mood and Affect: Mood normal. Behavior: Behavior normal. Assessment Assessment/Plan/MDM Werner was seen today for thrush. Diagnoses and all orders for this visit: Thrush, oral (Primary) - nystatin (Mycostatin) 100,000 unit/mL suspension; Swish and swallow 4 mL (400,000 Units) 4 times a day for 7 days. Situational anxiety - hydrOXYzine HCL (Atarax) 25 mg tablet; Take 1 tablet (25 mg) by mouth 4 times a day as needed for itching. Will treat for the rash and provided Atarax for situational anxiety. Discussed timeline for retesting for STDs with patient. Discussed worsening symptoms and when to seek further care. Patient's clinical presentation is otherwise unremarkable at this time. Patient is discharged with instructions to follow-up with primary care or seek emergency medical attention for worsening symptoms or any new concerns. At time of discharge patient was clinically well-appearing and appropriate for outpatient management. He was educated regarding diagnosis, supportive care, OTC and any Rx medications. He was given the opportunity to ask questions prior to discharge. They verbalized understanding of my discussion of the plans for treatment, expected course, indications to return to UC or seek further evaluation in ED, and the need for timely follow up as directed. I did personally review Werner's past medical history, surgical history, social history, as well as family history (when relevant). In this case, I also oversaw the his drug management by reviewing his medication list, allergy list, as well as the medications that I prescribed during the UC course and/or recommended as an out-patient (including possible OTC medications such as acetaminophen, NSAIDs , etc). After reviewing the items above, I did look at previous medical documentation, such as recent hospitalizations, office visits, and/or recent consultations with PCP/specialist. SDOH: Another factor that I considered in Werner's care was his Social Determinants of Health (SDOH). During this UC encounter, he did not have social determinants of health. Those SDOH influencing Werner's care are: none Dennis Conte CNP [facility] [1] Allergies Allergen Reactions Ibuprofen Seizure and Other [2] Past Medical History: Diagnosis Date Personal history of leukemia History of leukemia Personal history of other diseases of the respiratory system 04/29/2021 History of upper respiratory infection [3] Past Surgical History: Procedure Laterality Date OTHER SURGICAL HISTORY 04/08/2020 No history of surgery documented in this encounter [facility] Work Phone: 05-26-2021 History of Present illness Narrative Patient presents in follow-up of Covid pneumonia. Most recent chest x-ray obtained 26 May 2021 showed no improvement as compared to x-ray obtained 2 weeks prior. Patient reports no dyspnea however, is reporting new onset of hemoptysis. Patient states 3 days ago there was a large clump of bloody mucus which has since been followed by clear mucus with streaks of blood. Patient took pictures and brought these in. Patient denies any chest pain or shortness of breath. Since onset in early April, patient has been on Zithromax, prednisone, Augmentin, and prednisone again. Patient has stopped supplemental O2 and reports good endurance and decent conditioning considering 3-week duration so far. Patient is questioning about returning to work. [facility] Work Phone: 05-09-2021 Note Send Summary: Discharge Summary Providers: Provider RoleProvider Name Joe Aguirre Hafiz PrimaryNewDerick thomas Note Recipients: Derick Eagle PAC Discharge: Summary: Admission Date: .05-May-2021 02:22:00 Discharge Date: 09-May-2021 Attending Physician at Discharge: Viola Quezada Admission Reason: COVID-19 Pneumonia Final Discharge Diagnoses: COVID-19 Pneumonia Procedures: none Condition at Discharge: Satisfactory Disposition at Discharge: .Home Vital Signs: T PRBPSpO2 [id number]/7692% Date/Time05/09 8: 8: 8: 8: 8:22 Range(36.4C - 37C ) (84 - 101 ) (18 - 20 ) (126 - 140 )/ (74 - 78 ) (92% - 94% ) As of 09-May-2021 08:22:00, patient is on 3 L/min of oxygen via nasal cannula. Highest temp of 37 C was recorded at 12 8:22 Date: Weight/Scale Type:Height: 05-May-2021 09:47683.3 kg / wky522.3 cm Physical Exam: Physical Exam: Constitutional: Well developed, awake/alert/oriented x3, no distress, alert and cooperative Eyes: PERRL, EOMI, clear sclera ENMT: mucous membranes moist, no apparent injury, no lesions seen Head/Neck: Neck supple, no apparent injury, thyroid without mass or tenderness, No JVD, trachea midline, no bruits Respiratory/Thorax: apr .sounds at bases b/l Cardiovascular: Regular, rate and rhythm, no murmurs, 2+ equal pulses of the extremities, normal S 1and S 2 Gastrointestinal: Nondistended, soft, non-tender, no rebound tenderness or guarding, no masses palpable, no organomegaly, +BS, no bruits Musculoskeletal: ROM intact, no joint swelling, normal strength Extremities: normal extremities, no cyanosis edema, contusions or wounds, no clubbing Neurological: alert and oriented x3, intact senses, motor, response and reflexes, normal strength Lymphatic: No significant lymphadenopathy Psychological: Appropriate mood and behavior Skin: Warm and dry, no lesions, no rashes Hospital Course: 35-year-old male presented with hypoxia from COVID-19 pneumonia as well possible community-acquired pneumonia Plan Duo nebs every 4 hours Symbicort inhaler twice daily Methylprednisolone 40 Mg IV every 6 hours- taper on dc Lovenox dosing as per d dimer 80 mg SC twice a day given here Ceftriaxone 1 g IV daily Azithromycin 500 mg daily procalcitonin low though but clinical suspicion and given 5 days duration Abx Antibiotics to cover bacterial pneumonia component Remdesivir IV Wean oxygen as tolerated [id number] encounter with patient and he is requiring 3 L at rest continuous via portable tank through nasal cannula and 6 L with activity - Supportive care and symptomatic management Education counseling Cough suppressants, Tylenol for fever as needed Continuous cardiopulmonary monitoring and constant pulse ox done here d/w family time to dc > 35 mins Discharge Information: and Continuing Care: Lab Results - Pending: None Radiology Results - Pending: None Discharge Instructions: Activity: activity as tolerated. Nutrition/Diet: low fat Follow Up Appointments: Follow-Up Appointment 01: Physician/Dept/Service: follow PCP Call to Schedule in: 1 week Discharge Medications: Home Medication Medrol Dosepak 4 mg oral tablet - 1 packet(s) orally once a day PRN Medication DNR Status: Code StatusCode Status order at time of discharge: Full Code Electronic Signatures: Viola Quezada) (Signed 09-May-2021 14:46) Authored: Send Summary, Summary Content, Ongoing Care, DNR Status, Note Completion Last Updated: 09-May-2021 14:46 by Viola Quezada) [facility] 05-09-2021 Note Clinical Event: Clinical Event Note: TopicEvaluation for oxygen Details Patient had home oxygen evaluation. He required 3 L nasal cannula at rest and 6 L nasal cannula on exertion. Objective Information T PRBPSpO2 [id number]% Date/Time05/09 8: 8: 8: 8: 8:22 Range(36.4C - 37C ) (84 - 101 ) (18 - 20 ) (126 - 140 )/ (74 - 78 ) (92% - 94% ) As of 09-May-2021 08:22:00, patient is on 3 L/min of oxygen via nasal cannula. 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 Patient is not vaccinated for COVID-19. Patient received antibiotics and IV steroids outpatient. He complained of streaks of blood with yellowish sputum production. CTA is negative for pulmonary embolism but has concern for superinfection with bacterial pneumonia in addition to classic COVID-19 pneumonia. Patient became hypoxic and placed on 2 L nasal cannula. Patient denies any headache or joint pains or skin rash or muscle weakness. He did develop fever. Sepsis as well COVID-19 pneumonia. No chest pain or palpitations or dizziness or leg swelling. No focal weakness. No active bleeding from anywhere. No back pain or flank pain no hematuria or dysuria. No joint pains or skin rash. No appetite change or weight loss. 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 Objective: Objective Information: T PRBPSpO2 [id number]/8494% Date/Time05/05 7: 7: 7: 7: 7:54 Range(37.4C - 38.1C ) (108 - 120 ) (20 - 35 ) (128 - 137 )/ (84 - 91 ) (87% - 95% ) As of 05-May-2021 05:00:00, patient is on 2 L/min of oxygen via nasal cannula. Highest temp of 38.1 C was recorded at 05/05 2:45 Pain reported at 05/05 5:00: 0 = None Physical Exam by System: Constitutional: Well developed, awake/alert/oriented x3, no distress, alert and cooperative Eyes: PERRL, EOMI, clear sclera ENMT: mucous membranes moist, no apparent injury, no lesions seen Head/Neck: Neck supple, no apparent injury, thyroid without mass or tenderness, No JVD, trachea midline, no bruits Respiratory/Thorax: Coarse breath sounds bilaterally with few rales Cardiovascular: Regular, rate and rhythm, no murmurs, 2+ equal pulses of the extremities, normal S 1and S 2 Gastrointestinal: Nondistended, soft, non-tender, no rebound tenderness or guarding, no masses palpable, no organomegaly, +BS, no bruits Musculoskeletal: ROM intact, no joint swelling, normal strength Extremities: normal extremities, no cyanosis edema, contusions or wounds, no clubbing Neurological: alert and oriented x3, intact senses, motor, response and reflexes, normal strength Lymphatic: No significant lymphadenopathy Psychological: Appropriate mood and behavior Skin: Warm and dry, no lesions, no rashes Medications: Medications: Continuous Medications No continuous medications are active Scheduled Medications 1. Albuterol 2.5mg - Ipratropium 0.5 mg/ 3mL Neb Soln: 3 mL Inhalation Every 4 Hours 2. Azithromycin: 500 mg Oral Every 24 Hours 3. Budesonide 0.5 mg/ 2 mL Nebulizer Soln: 2 mL Inhalation Every 12 Hours 4. cefTRIAXone 1 gram/ Dextrose 5% IVPB Premixed Soln 50 mL: 50 mL IntraVenous Piggyback Every 24 Hours 5. Enoxaparin SubCutaneous: 40 mg SubCutaneous Every 24 Hours 6. methylPREDNISolone Sodium Succinate Injectable: 40 mg IntraVenous Push Every 6 Hours 7. Remdesivir IntraVenous Infusion (for patients > = 40 kilograms): 200 mg IntraVenous Infusion Once PRN Medications 1. Acetaminophen: 650 mg Oral Every 4 Hours 2. guaiFENesin Extended Release: 600 mg Oral Every 12 Hours 3. Ondansetron Injectable: 4 mg IntraVenous Push Every 4 Hours 4. Sodium Chloride 0.9% Injectable Flush: 10 mL IntraVenous Flush Every 8 Hours and as Needed 5. Sore Throat Lozenge: 1 lozenge(s) Oral Every 2 Hours Recent Lab Results: Results: CBC: 05/05/2021 03:00 \ Hgb / \ 15.3 / WBC Plt 10.2 218 / Hct \ / 45.0 \ RBC: 5.04 MCV: 89 BMP: 05/05/2021 03:00 NA+ Cl- BUN / 131 L 94 L 20 / Glucose 122 H K+ HCO3- Creat \ 3.9 26 1.00 \ Calcium : 9.0 Anion Gap : 15 Coagulation: null PT / / -------< INR < PTT\ \ Radiology Results: Results: (more content not included)... [facility] 04-29-2021 History of Present illness Narrative Patient presents in hospital follow-up. Patient was seen here and treated for upper respiratory infection suspected Covid initially on 29 April 2021. Patient was prescribed a Z-José, Medrol, and Bromfed. Patient continued to decline despite this and presented to the ER 05 May 2021. Patient was diagnosed with Covid pneumonia with possible bacterial superinfection and admitted for hypoxia and respiratory distress. Patient was admitted for 4 days and discharged 09 May 2021 after appropriate care. Patient was discharged on home O2 and a Medrol Dosepak.Patient presents today with significant improvement overall. Patient continues to use supplemental O2 at 2 L. Patient does report onset of mild erythema and induration at the IV site on the right forearm. Otherwise, patient continues to improve with stamina, appetite, and breathing. [facility] Work Phone: Evaluation note Diagnosis Thrush, oral- Primary Situational anxiety documented in this encounter [facility] Work Phone: Evaluation note* Diagnosis Thrush- Primary Candidiasis of mouth Unprotected sex Problems related to high-risk sexual behavior documented in this encounter [facility] Work Phone: Evaluation note* Diagnosis Post-nasal drainage- Primary Other diseases of nasal cavity and sinuses Coated tongue Hypertrophy of tongue papillae documented in this encounter [facility] Work Phone: History of Present illness Narrative* Patient presents to establish care. * Patient has no chronic illnesses and takes no daily medications. * Patient presents for evaluation of upper respiratory symptoms. Patient reports 4 days of progressively worsening cough, congestion, body aches, malaise, and diarrhea. Patient is not currently vaccinated against COVID-19. Patient does not know of any known direct contact. No attempted conservative management was made. Currently, patient is uninsured. [facility] Work Phone: Reason for referral (narrative)* Consultation (Routine) - Authorized Specialty Diagnoses / Procedures Referred By Contnayan t Referred To Contact Primary Care Procedures Follow Up In Primary Care - Established Rebel Damian PA-C [address] [facility], [place] [id number] Phone: tel: fax: Referral ID Status Reason Start Date Expiration Date V isits Requested Visits Authorized [id number] Authorized 01/08/2025 01/08/2026 1 1 [facility] Work Phone: Summary Purpose Family History No Family History Records FoundUnknown Family Member Name Dates Details Family history of dementia: Paternal Grandmother(V17.2, Z81.8) Status:Active Family history of type 2 summer betes mellitus: Father(V18.0, Z83.3) Status:Active Family history of hypertensi on: Father(V17.49, Z82.49) Status:Active Unknown Family Member Name Dates Details Family history of hypertensi on: Father(V17.49, Z82.49) Status:Active Family history of type 2 summer betes mellitus: Father(V18.0, Z83.3) Status:Active Family history of dementia: Paternal Grandmother(V17.2, Z81.8) Status:Active Unknown Family Member Name Dates Details Family history of hypertensi on: Father(V17.49, Z82.49) Status:Active Family history of type 2 summer betes mellitus: Father(V18.0, Z83.3) Status:Active Family history of dementia: Paternal Grandmother(V17.2, Z81.8) Status:Active Unknown Family Member Name Dates Details Family history of dementia: Paternal Grandmother(V17.2, Z81.8) Status:Active Family history of type 2 summer betes mellitus: Father(V18.0, Z83.3) Status:Active Family history of hypertensi on: Father(V17.49, Z82.49) Status:Active Advance Directives No Advanced Directives Records FoundNo Advanced Directives Records FoundNo Advanced Directives Records FoundNo Advanced Directives Records FoundNo Advanced Directives Records FoundNo Advanced Directives Records FoundNo Advanced Directives Records FoundNo Advanced Directives Records FoundNo Advanced Directives Records Found Chief Complaint * Patient here today to get established as a new patient. Patient states it has been over 2 years since last seen by a PCP. * Patient is having symptoms of SOB, weakness, shakiness, cough, body chills & aches with diarrhea x 4 days. Patient states has about 7-8 diarrhea episodes daily. Patient has taken OTC NyQuil, DayQuil and Pepto-Bismol. Patient he took Pepto-Bismol earlier today. * Patient here today for follow up hospital discharged on Wednesday with oxygen. Currently taking 1-2L. Patient states SpO2 ranging high 80s with exertion and at rest around 95%. * Patient finished last dose of Methylprednisolone today. * Patient states feeling better since discharge, energy & appetite have increased. EST PT HERE FOR BLOOD IN SILIVA X 3 DAYS. PT STATES THIS HAPPENS WHEN HE COUGHS/CLEARS HIS THROAT. PT HAS PICTURES TO SHARE ON HIS PHONE. Additional Source Comments (unrecognized sect ion and content) No Status Records FoundNo Status Records FoundNo Status Records FoundNo Status Records FoundNo Status Records FoundNo Status Records FoundNo Status Records FoundNo Status Records FoundNo Status Records Found INFORMATION SOURCE (unrecogn ized section and content) DATE CREATED AUTHOR 10/31/[address] [facility] DATE CREATED AUTHOR AUTHOR'S ORGANIZ ATION 06/02/2019 [facility] DATE CREATED AUTHOR AUTHOR'S ORGANIZ ATION 06/15/2019 [facility] ([place]) DATE CREATED AUTHOR AUTHOR'S ORGANIZ ATION 06/04/2021 [employer] DATE CREATED AUTHOR AUTHOR'S ORGANIZ ATION 07/02/2021 [facility] DATE CREATED AUTHOR AUTHOR'S ORGANIZ ATION 03/19/2024 [facility] DATE CREATED AUTHOR AUTHOR'S ORGANIZ ATION 01/10/2025 [facility] DATE CREATED AUTHOR AUTHOR'S ORGANIZ ATION 01/10/2025 [facility] DATE CREATED AUTHOR AUTHOR'S ORGANIZ ATION 01/11/2025 [facility] Reason for Visit (unrecogniz ed section and content) Reason Comments Thrush White tongue, oral u lcers after finishing Zpak Reason Comments pt here to est care Pt c/o white spots o n tongue that did not respond to treatment Reason Comments Sore Throat Was seen on 12/25/24; states would like labs drawn previous hx of acute leukemia when child. Sore throat a couple days per patient, yellow phlegm, white tongue and cough. Using the mouth rinse per patient Care Teams (unrecognized sec tion and content) Jewel Cupping Machine Operator Relationship Specialty Start Date End Date Generic Provider, [place] [address] PCP - General Diesel Roller Operator 12/25/24 Jewel Cupping Machine Operator Relationship Specialty Start Date End Date Rebel Damian PA-C [address] [facility], [facility] [address] [phone] PCP - General Family Medicine 01/08/25 Jewel Cupping Machine Operator Relationship Specialty Start Date End Date Generic Provider, No [place] [address] PCP - General Diesel Roller Operator 12/25/24 01/07/25 FOR RECORDS PERTAINING TO PATIENTS WHO ARE OR HAVE BEEN ENROLLED IN A CHEMICAL DEPENDENCY/SUBSTANCEABUSE PROGRAM, SOME INFORMATION MAY BE OMITTED. This clinical summary was aggregated from multiple sources. Caution should be exercised in using it in the provision of clinical care. This summary normalizes information from multiple sources, and as a consequence, information in this document may materially change the coding, format and clinical context of patient data. In addition, data may be omitted in some cases. CLINICAL DECISIONS SHOULD BE BASED ON THE PRIMARY CLINICAL RECORDS. [email or web address] [facility]. provides no warranty or guarantee of the accuracy or completeness of information in this document.
[2025-02-17 01:22] LABS: AST(SGOT) 17 U/L (<=37); Alanine Aminotransfer ALT/SGPT 11 U/L (<=46); Albumin, Serum 4.5 g/dL (3.5-5.0); Alkaline Phosphatase 55 U/L (40-129); Anion Gap 11 (5-15); BUN 15 mg/dL (4-19); BUN/Creat Ratio 14.5 RATIO (10-20); Calcium,Total 9.3 mg/dL (7.6-11.0); Carbon Dioxide 24.6 mmol/L (21.0-32.0); Chloride 103 mmol/L (98-108); Estimated Creatinine Clearance 118.34 ml/min (50-250); Globulin 1.8 g/dL (2.2-4.2); Glucose 106 mg/dL (70-99); Potassium 3.6 mmol/L (3.3-5.1)
[2025-02-17 03:22] VITALS: BP 145/86; PULSE 79; RESP 16; TEMP 36.3; O2SAT 99
== END 2025-02-17 03:24 | disposition home or self-care (01) ==
PROVIDERS: Emergency Provider Emergency Medicine; PCP Physician Assistant; Visit Provider Emergency Medicine
DX: D80.1 Nonfamilial hypogammaglobulinemia (principal); R61 Generalized hyperhidrosis; R63.4 Abnormal weight loss; R05.9 Cough, unspecified; Z85.6 Personal history of leukemia
CPT/HCPCS: 71046; 80053; 81001; 85025; 99283; A4216